=== PATIENT | male | born 1980 | race American Indian/Alaskan Native ===

== ENCOUNTER 2017-03-26 03:03 | Emergency (ER) | payer MEDICAID, OTHER ==
[2017-03-26 03:04] VITALS: BMI 23.1
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
[2017-03-26 03:31] VITALS: RESP 16; TEMP 98.6
--- NOTE | 2017-03-26 04:47 | CT ---
EXAM: CT Head Without Intravenous Contrast CLINICAL HISTORY: 36 years old, male; Pain; Headache TECHNIQUE: Axial computed tomography images of the head/brain without intravenous contrast. This CT exam was performed using one or more of the following dose reduction techniques: automated exposure control, adjustment of the mA and/or kV according to patient size, and/or use of iterative reconstruction technique. COMPARISON: CT - HEAD W/O CONTRAST 12/22/2015 4:51:54 PM FINDINGS: Limitations: Motion artifact - mild. Brain: Mild atrophy. No definite intracranial hemorrhage. No mass. Few scattered foci of decreased attenuation within periventricular/subcortical white matter. No definite edema. Ventricles: No hydrocephalus. Bones/joints: No acute fracture. Soft tissues: Unremarkable. Sinuses: No acute sinusitis. Mastoid air cells: No mastoid effusion. Orbits: Unremarkable as visualized. IMPRESSION: 1. Nonspecific white matter changes. Consider MRI. 2. Incidental/non-acute findings are described above.
[2017-03-26 05:46] VITALS: BP 117/68; PULSE 70; O2SAT 99
== END 2017-03-26 05:46 | disposition home or self-care (01) ==
LOC: ED 03:03
DX: R51 Headache (principal)

== ENCOUNTER 2017-08-18 04:02 | Emergency (ER) | payer MEDICAID, OTHER ==
[2017-08-18 04:02] VITALS: BMI 23.1
[2017-08-18 04:13] VITALS: BP 102/69; PULSE 102; RESP 18; TEMP 99.4; O2SAT 98
--- NOTE | 2017-08-18 04:27 | ED PDOC ---
Arrival/HPI - General Chief Complaint: Lower Extremity Problem/Injury Time Seen by Provider: 08/18/17 04:04 Historian: Patient - History of Present Illness Narrative History of Present Illness (Text): 08/18/17 04:24 A 37 year old male, whose past medical history includes hypertension, seizure disorder, MVP, HIV, and sickle cell disease, presents to the emergency department with right sided ankle pain. The patient denies fevers, chills, headache, dizziness, chest pain, shortness of breath, dyspnea on exertion, cough , abdominal pain, nausea, vomiting, diarrhea, back pain, neck pain, urinary/ bowel changes, trauma/injury, si/hi/ah/vh or any other complaint. Time/Duration: Other (Few Days) Symptom Onset: Sudden Symptom Course: Unchanged Activities at Onset: Rest Context: Home Past Medical History - Provider Review Nursing Documentation Reviewed: Yes - Infectious Disease Hx of Infectious Diseases: None - Tetanus Immunization Tetanus Immunization: Unknown - Cardiac Hx Cardiac Disorders: Yes Hx Hypertension: Yes Hx Mitral Valve Prolapse: (mv regurgitation) - Pulmonary Hx Respiratory Disorders: No - Neurological Hx Neurological Disorder: Yes Hx Seizures: Yes - HEENT Hx HEENT Disorder: No - Renal Hx Renal Disorder: No - Endocrine/Metabolic Hx Endocrine Disorders: No - Hematological/Oncological Hx Blood Disorders: Yes Hx Anemia: Yes Hx Sickle Cell Disease: Yes - Integumentary Hx Dermatological Disorder: No - Musculoskeletal/Rheumatological Hx Musculoskeletal Disorders: No Hx Falls: No - Gastrointestinal Hx Gastrointestinal Disorders: No - Genitourinary/Gynecological Hx Genitourinary Disorders: Yes Hx Sexually Transmitted Diseases: Yes - Psychiatric Hx Psychophysiologic Disorder: Yes Hx Depression: Yes Hx Substance Use: Yes (crystal meth) - Surgical History Hx Orthopedic Surgery: Yes (Bunionectomy) Hx Valve Replacement: Yes (AORTIC VALVE REPLACEMENT in 2012) Other/Comment: aortic valve replacement 2013/mitral valve repair - Anesthesia Hx Anesthesia: Yes Hx Anesthesia Reactions: No Hx Malignant Hyperthermia: No - Suicidal Assessment Feels Threatened In Home Enviroment: No Family/Social History - Physician Review Nursing Documentation Reviewed: Yes Family/Social History: No Known Family HX Smoking Status: Never Smoked Hx Alcohol Use: No Hx Substance Use: Yes (crystal meth) Substance used: crystal meth Allergies/Home Meds Allergies/Adverse Reactions: Allergies aripiprazole [From Abilify] Allergy (Verified 08/08/17 03:32) URTICARIA mirtazapine [From Remeron] Allergy (Verified 08/08/17 03:32) CONGESTION Review of Systems - Physician Review All systems were reviewed & negative as marked: Yes - Review of Systems Constitutional: absent: Fevers, Night Sweats Respiratory: absent: SOB, Cough Cardiovascular: absent: Chest Pain, VILLAGOMEZ Gastrointestinal: absent: Abdominal Pain, Stool Changes, Diarrhea, Nausea, Vomiting Genitourinary Male: absent: Urinary Output Changes Musculoskeletal: Other (Right ankle pain). absent: Back Pain, Neck Pain Neurological: absent: Headache, Dizziness Physical Exam Vital Signs Reviewed: Yes Vital Signs Temp Pulse Resp BP Pulse Ox 08/18/17 04:10 99.4 F 102 H 18 102/69 98 Temperature: Afebrile Blood Pressure: Normal Pulse: Tachycardic Respiratory Rate: Normal Appearance: Positive for: Well-Appearing, Non-Toxic, Comfortable Pain Distress: None Mental Status: Positive for: Alert and Oriented X 3 - Systems Exam Head: Present: Atraumatic, Normocephalic Pupils: Present: PERRL Extroacular Muscles: Present: EOMI Conjunctiva: Present: Normal Mouth: Present: Moist Mucous Membranes Neck: Present: Normal Range of Motion Respiratory/Chest: Present: Clear to Auscultation, Good Air Exchange. No: Respiratory Distress, Accessory Muscle Use Cardiovascular: Present: Regular Rate and Rhythm, Normal S1, S2. No: Murmurs Abdomen: Present: Normal Bowel Sounds. No: Tenderness, Distention, Peritoneal Signs Back: Present: Normal Inspection Upper Extremity: Present: Normal Inspection. No: Cyanosis, Edema Lower Extremity: Present: Normal Inspection. No: Edema Neurological: Present: GCS=15, CN II-XII Intact, Speech Normal Skin: Present: Warm, Dry, Normal Color. No: Rashes Psychiatric: Present: Alert, Oriented x 3, Normal Insight, Normal Concentration Medical Decision Making ED Course and Treatment: 08/18/17 04:27 Impression: A 37 year old male presents to the emergency department complaining of right ankle pain. Plan: -- Right Ankle X-Ray -- Reassess and disposition Prior Visits: Notes and results from previous visits were reviewed. Patient was last seen in the emergency department on 03/26/2017. The patient was seen in the emergency department for a complaint of a headache. The patient was discharged home. Progress Notes: 08/18/17 04:29: Patient denies any psychiatric symptoms (Suicidal/homicidal ideation or auditory/visual hallucination/ depression). Patient in no distress listening to iPod. 08/18/17 04:40: Reassessed patient; In no acute distress. Ambulatory, steady gait, responds to all my questions. - RAD Interpretation Radiology Orders: 08/18/17 04:24 ANKLE RIGHT 3 VIEWS ROUTINE [RAD] Stat - Medication Orders Current Medication Orders: Discontinued Medications Naproxen (Anaprox Ds) 550 mg PO STAT STA Stop: 08/18/17 04:46 Last Admin: 08/18/17 04:47 Dose: Not Given Non-Admin Reason: Patient Refused - Scribe Statement The provider has reviewed the documentation as recorded by the Scribe Chloe Copeland Provider Scribe Attestation: All medical record entries made by the Scribe were at my direction and personally dictated by me. I have reviewed the chart and agree that the record accurately reflects my personal performance of the history, physical exam, medical decision making, and the department course for this patient. I have also personally directed, reviewed, and agree with the discharge instructions and disposition. Disposition/Present on Arrival - Present on Arrival Any Indicators Present on Arrival: No History of DVT/PE: No History of Uncontrolled Diabetes: No Urinary Catheter: No History of Decub. Ulcer: No History Surgical Site Infection Following: None - Disposition Have Diagnosis and Disposition been Completed?: Yes Diagnosis: Ankle pain Disposition: HOME/ ROUTINE Disposition Time: 04:00 Condition: STABLE Discharge Instructions (ExitCare): Ankle Sprain (ED) Additional Instructions: follow up with specialist. return to er with worsening symptoms or concerns. Prescriptions: Naproxen 500 mg PO BID PRN #14 tab PRN Reason: Pain, Mild (1-3) Referrals: [facility] [Outside] - Follow up with primary [facility] [Outside] - Follow up with primary Forms: [employer] ([place])
[2017-08-18] MEDS ORDERED: Naproxen 550 mg Tab PO STA (04:45)
--- NOTE | 2017-08-18 09:49 | RAD ---
PROCEDURE: Right Ankle Radiographs. HISTORY: pain COMPARISON: None FINDINGS: BONES: Normal. No fracture. JOINTS: Normal. No osteoarthritis. Ankle mortise maintained. Talar dome intact SOFT TISSUES: Normal. OTHER FINDINGS: Solitary orthopedic screw, fenestrated 1st metacarpal. No evidence of orthopedic hardware failure. IMPRESSION: No acute findings related to/accounting for the clinical presentation. Concordant results with the preliminary interpretation rendered by the emergency department physician procedure.
== END 2017-08-18 04:47 | disposition home or self-care (01) ==
LOC: ED 04:02
DX: M25.571 Pain in right ankle and joints of right foot (principal); I10 Essential (primary) hypertension

== ENCOUNTER 2017-08-18 06:08 | Emergency (ER) | payer MEDICAID ==
[2017-08-18 06:09] VITALS: BMI 23.1
--- NOTE | 2017-08-18 06:42 | ED PDOC ---
Arrival/HPI - General Chief Complaint: Back Pain Time Seen by Provider: 08/18/17 06:39 - History of Present Illness Narrative History of Present Illness (Text): 08/18/17 06:41 37 yo male, hx of hiv, non-compliant with meds (reports cd4 80), sickle cell, substance abuse, presents with body aches and generalized weakness. seen earlier in er, only reporting ankle pain at that time. now requests full eval for body aches and weakness. pt was recently admitted to pychiatric service. at this time denies any si/hi. no reports fever, cough, urinary changes. 08/18/17 06:59 Past Medical History - Infectious Disease Hx of Infectious Diseases: None - Tetanus Immunization Tetanus Immunization: Unknown - Cardiac Hx Cardiac Disorders: Yes Hx Hypertension: Yes Hx Mitral Valve Prolapse: (mv regurgitation) - Pulmonary Hx Respiratory Disorders: No - Neurological Hx Neurological Disorder: Yes Hx Seizures: Yes - HEENT Hx HEENT Disorder: No - Renal Hx Renal Disorder: No - Endocrine/Metabolic Hx Endocrine Disorders: No - Hematological/Oncological Hx Blood Disorders: Yes Hx Anemia: Yes Hx Sickle Cell Disease: Yes - Integumentary Hx Dermatological Disorder: No - Musculoskeletal/Rheumatological Hx Musculoskeletal Disorders: No Hx Falls: No - Gastrointestinal Hx Gastrointestinal Disorders: No - Genitourinary/Gynecological Hx Genitourinary Disorders: Yes Hx Sexually Transmitted Diseases: Yes - Psychiatric Hx Psychophysiologic Disorder: Yes Hx Depression: Yes Hx Substance Use: Yes (crystal meth) - Surgical History Hx Orthopedic Surgery: Yes (Bunionectomy) Hx Valve Replacement: Yes (AORTIC VALVE REPLACEMENT in 2012) Other/Comment: aortic valve replacement 2013/mitral valve repair - Anesthesia Hx Anesthesia: Yes Hx Anesthesia Reactions: No Hx Malignant Hyperthermia: No - Suicidal Assessment Feels Threatened In Home Enviroment: No Family/Social History - Physician Review Nursing Documentation Reviewed: Yes Family/Social History: Unknown Family HX Smoking Status: Never Smoked Hx Alcohol Use: No Hx Substance Use: Yes (crystal meth) Substance used: crystal meth Allergies/Home Meds Allergies/Adverse Reactions: Allergies aripiprazole [From Abilify] Allergy (Verified 08/08/17 03:32) URTICARIA mirtazapine [From Remeron] Allergy (Verified 08/08/17 03:32) CONGESTION Review of Systems - Review of Systems Constitutional: Normal Eyes: Normal ENT: Normal Respiratory: Normal Cardiovascular: Normal Gastrointestinal: Normal Genitourinary Male: Normal Musculoskeletal: Arthralgias Skin: Normal Neurological: Normal Endocrine: Normal Hemo/Lymphatic: Normal Psychiatric: Normal Physical Exam Vital Signs Temp Pulse Resp BP Pulse Ox 08/18/17 08:35 98.4 F 87 16 123/71 98 08/18/17 06:14 98.7 F 109 H 18 113/80 100 Temperature: Afebrile Blood Pressure: Normal Pulse: Tachycardic (mild) Respiratory Rate: Normal Appearance: Positive for: Well-Appearing, Non-Toxic, Comfortable Pain Distress: None Mental Status: Positive for: Alert and Oriented X 3 - Systems Exam Head: Present: Atraumatic, Normocephalic Pupils: Present: PERRL Extroacular Muscles: Present: EOMI Conjunctiva: Present: Normal Mouth: Present: Moist Mucous Membranes Neck: Present: Normal Range of Motion Respiratory/Chest: Present: Clear to Auscultation, Good Air Exchange. No: Respiratory Distress, Accessory Muscle Use Cardiovascular: Present: Regular Rate and Rhythm, Normal S1, S2. No: Murmurs Abdomen: Present: Normal Bowel Sounds. No: Tenderness, Distention, Peritoneal Signs, Rebound, Guarding Back: Present: Normal Inspection Upper Extremity: Present: Normal Inspection. No: Cyanosis, Edema Lower Extremity: Present: Normal Inspection. No: Edema, Tenderness, Swelling Neurological: Present: GCS=15, CN II-XII Intact, Speech Normal Skin: Present: Warm, Dry, Normal Color. No: Rashes Psychiatric: Present: Alert, Oriented x 3, Normal Insight, Normal Concentration Medical Decision Making ED Course and Treatment: 08/18/17 06:43 ro infectious, metabolic, hematologic etiology - labs imaging pending. 08/18/17 19:25 signed out to day shift all labs imaging pending - Lab Interpretations Lab Results: 08/18/17 06:57 08/18/17 06:57 Lab Results 08/18/17 08:30: Urine Color Yellow, Urine Appearance Clear, Urine pH 6.0, Ur Specific [place] >= 1.030, Urine Protein 30 H, Urine Glucose (UA) Negative, Urine Ketones Trace H, Urine Blood Negative, Urine Nitrate Negative, Urine Bilirubin Negative, Urine Urobilinogen 1.0 H, Ur Leukocyte Esterase Negative, Urine RBC Negative, Urine WBC 0 - 2, Urine Bacteria Mod 08/18/17 06:57: Influenza Typ A,B (EIA) Negative for flu a/b 08/18/17 06:57: Sodium 141, Potassium 4.2, Chloride 104, Carbon Dioxide 30, Anion Gap 12, BUN 24 H, Creatinine 1.1, Est GFR ( Amer) > 60, Est GFR ( Non-Af Amer) > 60, Random Glucose 77, Calcium 8.9, Total Bilirubin 0.5, AST 66 H D, ALT 28, Alkaline Phosphatase 121, Total Creatine Kinase 186, Total Protein 8.7 H, Albumin 3.9, Globulin 4.8, Albumin/Globulin Ratio 0.8 L 08/18/17 06:57: PT 13.7 H, INR 1.24 H, APTT 30.3 08/18/17 06:57: WBC 9.0 D, RBC 3.46 L, Hgb 9.0 L, Hct 29.4 L, MCV 85.0, MCH 26.0, MCHC 30.6 L, RDW 15.1 H, Plt Count 216, MPV 11.6 H, Gran % 73.8 H, Lymph % (Auto) 17.4 L, [place] % (Auto) 8.5 H, Eos % (Auto) 0.1 L, Baso % (Auto) 0.2, Gran # 6.63 H, Lymph # 1.6, [place] # 0.8 H, Eos # 0.0, Baso # 0.02, Retic Count 1.57 H - RAD Interpretation Radiology Orders: 08/18/17 06:44 CHEST PORTABLE [RAD] Stat - Medication Orders Current Medication Orders: Discontinued Medications Sodium Chloride (Sodium Chloride 0.9%) 1,000 mls @ 999 mls/hr IV .Q1H1M STA Stop: 08/18/17 07:44 Last Admin: 08/18/17 07:02 Dose: 999 mls/hr eMAR Start Stop Document 08/18/17 07:02 YP (Rec: 08/18/17 07:02 [place] [facility] [id number] Intravenous Solution Start Date 08/18/17 Start Time 07:02 End Date 08/18/17 Ketorolac Tromethamine (Toradol) 30 mg IVP STAT STA Stop: 08/18/17 06:46 Last Admin: 08/18/17 07:06 Dose: 30 mg MAR Pain Assessment Document 08/18/17 07:06 YP (Rec: 08/18/17 07:06 [place] [facility] [id number] Pain Reassessment Is this a pain reassessment? Yes Sleep Is patient sleeping during reassessment? No Presence of Pain Presence of Pain No IVP Administration Document 08/18/17 07:06 YP (Rec: 08/18/17 07:06 [place] [facility] [id number] Charges for Administration # of IVP Administrations 1 Disposition/Present on Arrival - Present on Arrival Any Indicators Present on Arrival: No History of DVT/PE: No History of Uncontrolled Diabetes: No Urinary Catheter: No History of Decub. Ulcer: No History Surgical Site Infection Following: None - Disposition Have Diagnosis and Disposition been Completed?: Yes Diagnosis: Dehydration, Back pain, General medical exam, Substance abuse Disposition: HOME/ ROUTINE Disposition Time: 07:00 Condition: STABLE Discharge Instructions (ExitCare): Dehydration (ED), Polysubstance Abuse (ED), Normal Exam (ED), Back Pain (ED) Print Language: ITALIAN Additional Instructions: Make sure to see your doctor in 1-2 days DRINK PLENTY OF FLUIDS DONT SMOKE, DONT drink alcohol DONT DO DRUGS take your medications as prescribed RETURN TO ED IF worse pain, cant breath, persistent vomiting, high fever >101- 102 for hours, altered behavior, unable to urinate, numbness/tingling, incontinence, heavy/persistent bleeding, passing out, chest pain, or other medical emergencies Prescriptions: traMADol [Ultram] 50 mg PO TID #15 tab Referrals: PCP,NO [Non-Staff] - Follow up with primary Forms: [employer] ([place])
[2017-08-18] MEDS ORDERED: Sodium Chloride 0.9% 1,000 ML IV STA (06:44)
[2017-08-18 07:20] LABS: BASO # 0.02 K/mm3 (0.0-2.0); BASO % 0.2 % (0.0-3.0); EOS % 0.1 % (1.5-5.0); GRAN # 6.63 (1.4-6.5); GRAN % 73.8 % (50.0-68.0); HEMATOCRIT 29.4 % (42.0-52.0); LYMPH # 1.6 (1.2-3.4); LYMPH % 17.4 % (22.0-35.0); MEAN CORPUSCULAR HGB CONC 30.6 g/dl (31.0-37.0); MEAN PLATELET VOLUME 11.6 fl (7.0-11.0); MONO # 0.8 (0.1-0.6); MONO % 8.5 % (1.0-6.0); PLATELET COUNT 216 10^3/uL (120.0-450.0); RED CELL DISTRIBUTION WIDTH 15.1 % (11.5-14.5); RETIC% 1.57 % (0.5-1.5)
[2017-08-18 07:23] LABS: ALKALINE PHOSPHATASE 121 U/L (38-126); ALT/SGPT 28 U/L (7-56); AST/SGOT 66 U/L (17-59); BILIRUBIN,TOTAL 0.5 mg/dL (0.2-1.3); BLOOD UREA NITROGEN 24 mg/dL (7-21); CALCIUM 8.9 mg/dL (8.4-10.5); CARBON DIOXIDE 30 mmol/L (21-33); CHLORIDE 104 mmol/L (98-107); GFR AFRICAN-AMERICAN > 60; GLUCOSE,RANDOM 77 mg/dL (70-110); POTASSIUM 4.2 mmol/L (3.6-5.0); SODIUM 141 mmol/L (132-148); TOTAL PROTEIN 8.7 g/dL (5.8-8.3)
[2017-08-18 07:24] LABS: INR 1.24 (0.93-1.08); PARTIAL THROMBOPLASTIN TIME 30.3 Seconds (25.1-36.5)
--- NOTE | 2017-08-18 07:27 | ED PDOC ---
Physical Exam Vital Signs Reviewed: Yes Vital Signs Temp Pulse Resp BP Pulse Ox 08/18/17 08:35 98.4 F 87 16 123/71 98 08/18/17 06:14 98.7 F 109 H 18 113/80 100 Temperature: Afebrile Blood Pressure: Normal Pulse: Tachycardic Respiratory Rate: Normal Appearance: Positive for: Well-Appearing, Non-Toxic, Comfortable Pain Distress: None Mental Status: Positive for: Alert and Oriented X 3 - Systems Exam Head: Present: Atraumatic, Normocephalic Pupils: Present: PERRL, Other (sclera anicteric, no nystagmus, no photophobia, visual field intact b/l) Extroacular Muscles: Present: EOMI Conjunctiva: Present: Normal Ears: Present: Normal Mouth: Present: Moist Mucous Membranes, Normal Teeth, Other (no drooling/stridor , no exudate/lesions) Pharnyx: Present: Normal Neck: Present: Normal Range of Motion, Trachea Midline. No: MIDLINE TENDERNESS Respiratory/Chest: Present: Clear to Auscultation, Good Air Exchange. No: Respiratory Distress, Accessory Muscle Use Cardiovascular: Present: Regular Rate and Rhythm, Normal S1, S2. No: Murmurs Abdomen: Present: Normal Bowel Sounds, Other (well nourished male, no focal tenderness, no peoples's sign, no mcburney's point tenderness, no masses/rebound/ guarding/rigidity). No: Tenderness, Distention, Peritoneal Signs Back: Present: Normal Inspection. No: CVA Tenderness Upper Extremity: Present: Normal Inspection, Normal ROM, NORMAL PULSES, Neurovascularly Intact, Capillary Refill < 2s. No: Cyanosis, Edema Lower Extremity: Present: Normal Inspection, NORMAL PULSES, Normal ROM, Neurovascularly Intact, Capillary Refill < 2 s, Other (no pitting edema noted, no lesions/rashes/ulcerations noted). No: Edema, Gurdeep's Sign Neurological: Present: GCS=15, CN II-XII Intact, Speech Normal Skin: Present: Warm, Dry, Normal Color, Other (cap refill < 1sec, no ulcerations , no petechiae, no rashes/lesions). No: Rashes Psychiatric: Present: Alert, Oriented x 3, Normal Insight, Normal Concentration Medical Decision Making ED Course and Treatment: 08/18/17 07:00 Case signed out to me by Dr. Romero. 37 year old male came in today with multiple complaints with prolonged list of medical history (sickle cell, HIV - last CD4 count was in the 80s, medication non-compliant, substance abuse). This is the second visit to the emergency department in the last few hours. Per Dr. Romero patient is awaiting lab results and reevaluation. Patient can be disposition accordingly. 08/18/17 08:31 during re-eval, pt states he was recently treated at [facility] for ? psych complaint; pt was also recently seen at [facility] in [facility], and here at [facility]; pt states he receives most of his healthcare in [facility] as he is visiting relatives here in [place]; pt states he stopped taking his antiviral medications due to some insurance issues, and last dose was a few weeks ago; pt states his usual sickle cell crisis pain involves his back and he uses drugs ( crystalmeth) to control his pain; pt states otherwise in regards to today's complaint, he wants to have his right ankle checked as he felt like it feels swollen to him and lower back pain that felt like his sickle cell crisis pain; pt also described intermittent chills, no fever/sweats, no cp/sob/palpitations, no abd pain, no n/v, no numbness/tingling, no urinary/bowel changes; pt denied trauma/fall/travel/sick contact pt is here for further eval. pt is doing well otherwise pt is awaiting for UA results 08/18/17 09:31 pt tolerated po well pt's vital signs remained WNL pt is made aware of his medical results pt is encouraged continued fluid hydration pt is encouraged avoidance of street drugs pt is encouraged to see his doctors in [facility] and to resume his anti-viral medications pt will f/u as directed pt will be discharged home Re-evaluation Time: 08:30 Reassessment Condition: Improved, Improving,but remains with symptoms - Lab Interpretations Lab Results: 08/18/17 06:57 08/18/17 06:57 Lab Results 08/18/17 08:30: Urine Color Yellow, Urine Appearance Clear, Urine pH 6.0, Ur Specific [place] >= 1.030, Urine Protein 30 H, Urine Glucose (UA) Negative, Urine Ketones Trace H, Urine Blood Negative, Urine Nitrate Negative, Urine Bilirubin Negative, Urine Urobilinogen 1.0 H, Ur Leukocyte Esterase Negative, Urine RBC Negative, Urine WBC 0 - 2, Urine Bacteria Mod 08/18/17 06:57: Influenza Typ A,B (EIA) Negative for flu a/b 08/18/17 06:57: Sodium 141, Potassium 4.2, Chloride 104, Carbon Dioxide 30, Anion Gap 12, BUN 24 H, Creatinine 1.1, Est GFR ( Amer) > 60, Est GFR ( Non-Af Amer) > 60, Random Glucose 77, Calcium 8.9, Total Bilirubin 0.5, AST 66 H D, ALT 28, Alkaline Phosphatase 121, Total Creatine Kinase 186, Total Protein 8.7 H, Albumin 3.9, Globulin 4.8, Albumin/Globulin Ratio 0.8 L 08/18/17 06:57: PT 13.7 H, INR 1.24 H, APTT 30.3 08/18/17 06:57: WBC 9.0 D, RBC 3.46 L, Hgb 9.0 L, Hct 29.4 L, MCV 85.0, MCH 26.0, MCHC 30.6 L, RDW 15.1 H, Plt Count 216, MPV 11.6 H, Gran % 73.8 H, Lymph % (Auto) 17.4 L, [place] % (Auto) 8.5 H, Eos % (Auto) 0.1 L, Baso % (Auto) 0.2, Gran # 6.63 H, Lymph # 1.6, [place] # 0.8 H, Eos # 0.0, Baso # 0.02, Retic Count 1.57 H I have reviewed the lab results: Yes (slight anemia, chronic) Interpretation: Abnormal lab values (slight anemia) - RAD Interpretation Radiology Orders: 08/18/17 06:44 CHEST PORTABLE [RAD] Stat sternotomy wires/mild cardiomeagly, otherwise NAD, as read by me Bottom Cager: ED Physician - Medication Orders Current Medication Orders: Discontinued Medications Sodium Chloride (Sodium Chloride 0.9%) 1,000 mls @ 999 mls/hr IV .Q1H1M STA Stop: 08/18/17 07:44 Last Admin: 08/18/17 07:02 Dose: 999 mls/hr eMAR Start Stop Document 08/18/17 07:02 YP (Rec: 08/18/17 07:02 YP [facility] [id number] Intravenous Solution Start Date 08/18/17 Start Time 07:02 End Date 08/18/17 Ketorolac Tromethamine (Toradol) 30 mg IVP STAT STA Stop: 08/18/17 06:46 Last Admin: 08/18/17 07:06 Dose: 30 mg MAR Pain Assessment Document 08/18/17 07:06 YP (Rec: 08/18/17 07:06 YP [facility] [id number] Pain Reassessment Is this a pain reassessment? Yes Sleep Is patient sleeping during reassessment? No Presence of Pain Presence of Pain No IVP Administration Document 08/18/17 07:06 YP (Rec: 08/18/17 07:06 YP [facility] [id number]) Charges for Administration # of IVP Administrations 1 - Scribe Statement The provider has reviewed the documentation as recorded by the Scribe Leslee Cheek Provider Scribe Attestation: All medical record entries made by the Scribe were at my direction and personally dictated by me. I have reviewed the chart and agree that the record accurately reflects my personal performance of the history, physical exam, medical decision making, and the department course for this patient. I have also personally directed, reviewed, and agree with the discharge instructions and disposition. Disposition/Present on Arrival - Present on Arrival Any Indicators Present on Arrival: No History of DVT/PE: No History of Uncontrolled Diabetes: No Urinary Catheter: No History of Decub. Ulcer: No History Surgical Site Infection Following: CABG - Mediastinitis (sternotomy for aortic repair) - Disposition Have Diagnosis and Disposition been Completed?: Yes Diagnosis: Dehydration, Back pain, General medical exam, Substance abuse Disposition: HOME/ ROUTINE Disposition Time: 09:28 Patient Plan: Discharge Patient Problems: Current Active Problems Problem Status Onset Back pain Acute Dehydration Acute General medical exam Acute Substance abuse Acute Condition: STABLE Discharge Instructions (ExitCare): Dehydration (ED), Back Pain (ED), Normal Exam (ED), Polysubstance Abuse (ED) Print Language: MOHAWK Additional Instructions: Make sure to see your doctor in 1-2 days DRINK PLENTY OF FLUIDS DONT SMOKE, DONT drink alcohol DONT DO DRUGS take your medications as prescribed RETURN TO ED IF worse pain, cant breath, persistent vomiting, high fever >101- 102 for hours, altered behavior, unable to urinate, numbness/tingling, incontinence, heavy/persistent bleeding, passing out, chest pain, or other medical emergencies Prescriptions: traMADol [Ultram] 50 mg PO TID #15 tab Referrals: PCP,NO [Non-Staff] - Follow up with primary Forms: [employer] (Chilean)
[2017-08-18 07:52] LABS: ALB/GLOB RATIO 0.8 (1.1-1.8)
[2017-08-18 08:36] VITALS: BP 123/71; PULSE 87; RESP 16; TEMP 98.4; O2SAT 98
[2017-08-18 08:58] LABS: URINE BILIRUBIN NEGATIVE (NEGATIVE); URINE BLOOD NEGATIVE (NEGATIVE); URINE GLUCOSE (UA) NEGATIVE (NEGATIVE); URINE KETONE TRACE mg/dL (NEGATIVE); URINE LEUKOCYTE ESTERASE NEGATIVE Leu/uL (NEGATIVE); URINE PROTEIN 30 mg/dL (<30 mg/dL)
[2017-08-18 08:59] LABS: URINE APPEARANCE CLEAR (CLEAR); URINE COLOR YELLOW (YELLOW)
[2017-08-18 09:18] LABS: URINE BACTERIA MOD (NEG); URINE RBC NEGATIVE /hpf (0-2); URINE WBC 0 - 2 /hpf (0-6)
--- NOTE | 2017-08-18 09:51 | RAD ---
HISTORY: Weakness. Portable study 07:36 COMPARISON: 12/15/2016 FINDINGS: LUNGS: No active pulmonary disease. Haziness right lower lobe likely technical rather than infiltrate. PLEURA: No significant pleural effusion identified, no pneumothorax apparent. CARDIOVASCULAR: No radiographic findings to suggest acute or significant cardiovascular disease. Incidental Finding(s): Postoperative changes related to sternotomy. OSSEOUS STRUCTURES: No significant abnormalities. VISUALIZED UPPER ABDOMEN: Normal. OTHER FINDINGS: None. IMPRESSION: No active disease. No significant interval change compared to the prior examination(s).
== END 2017-08-18 09:53 | disposition home or self-care (01) ==
LOC: ED 06:08
DX: Z00.00 Encounter for general adult medical examination without abnormal findings (principal); E86.0 Dehydration; F19.10 Other psychoactive substance abuse, uncomplicated; M54.9 Dorsalgia, unspecified; I10 Essential (primary) hypertension
CPT/HCPCS: 71010; 80053; 81001; 82550; 85025; 85044; 85610; 85730; 87804; 96374; 99283; J1885; J7040

== ENCOUNTER 2018-07-17 10:45 | Inpatient (IN) | payer MEDICAID, OTHER ==
[2018-07-17 10:54] VITALS: BMI 21.9
[2018-07-17] MEDS ORDERED: Lidocaine 5% Patch TD ONE (11:05)
--- NOTE | 2018-07-17 11:09 | ED PDOC ---
Arrival/HPI - General Chief Complaint: Pain, Chronic Historian: Patient - History of Present Illness Narrative History of Present Illness (Text): 07/17/18 11:04 38 year old male, whose past medical history includes hypertension, seizure disorder(on Keppra & Lamictal), HIV/AIDS &sickle cell disease, presents to the emergency department with back pain. He reports having upper back pain worsened with movement & constantly feels his back is cracking. He states he is an active IV drug user admitting his last use was crystal meth 1 week ago. Patient also states he feels like everyone hates him, and chooses to be homeless. Patient denies any fevers, chills, headache, dizziness, chest pain, shortness of breath, cough, abdominal pain, nausea, vomiting, diarrhea, urinary/bowel changes, or any other complaint. Time/Duration: Prior to Arrival Symptom Course: Unchanged Quality: Unable to Describe Context: Street, Pedestrian Past Medical History - Provider Review Nursing Documentation Reviewed: Yes - Travel History Have you recently traveled outside [place] w/in the past 3 mons?: No - Infectious Disease Hx of Infectious Diseases: None - Tetanus Immunization Tetanus Immunization: Unknown - Cardiac Hx Hypertension: Yes Hx Mitral Valve Prolapse: (mv regurgitation) - Pulmonary Hx Respiratory Disorders: No - Neurological Hx Seizures: Yes - HEENT Hx HEENT Disorder: No - Renal Hx Renal Disorder: No - Endocrine/Metabolic Hx Endocrine Disorders: No - Hematological/Oncological Hx Anemia: Yes Hx Sickle Cell Disease: Yes - Integumentary Hx Dermatological Disorder: No - Musculoskeletal/Rheumatological Hx Musculoskeletal Disorders: No Hx Falls: No - Gastrointestinal Hx Gastrointestinal Disorders: No - Genitourinary/Gynecological Hx Sexually Transmitted Diseases: Yes - Psychiatric Hx Anxiety: Yes Hx Bipolar Disorder: Yes Hx Depression: Yes Hx Schizophrenia: Yes Hx Substance Use: Yes (crystal meth) - Surgical History Hx Orthopedic Surgery: Yes (Bunionectomy) Hx Valve Replacement: Yes (AORTIC VALVE REPLACEMENT) Other/Comment: aortic valve replacement 2013/mitral valve repair - Anesthesia Hx Anesthesia: Yes Hx Anesthesia Reactions: No Hx Malignant Hyperthermia: No - Suicidal Assessment Feels Threatened In Home Enviroment: No Family/Social History - Physician Review Nursing Documentation Reviewed: Yes Family/Social History: No Known Family HX Smoking Status: Never Smoked Hx Alcohol Use: No Hx Substance Use: Yes (crystal meth) Substance used: crystal meth Allergies/Home Meds Allergies/Adverse Reactions: Allergies aripiprazole [From Abilify] Allergy (Verified 01/21/18 19:20) URTICARIA mirtazapine [From Remeron] Allergy (Verified 01/21/18 19:20) CONGESTION Home Medications: Home Meds Medication Instructions Recorded Confirmed RX: No Known Home Med 01/21/18 01/21/18 Review of Systems - Physician Review All systems were reviewed & negative as marked: Yes - Review of Systems Constitutional: absent: Fevers, Night Sweats Respiratory: absent: SOB, Cough Cardiovascular: absent: Chest Pain Gastrointestinal: absent: Abdominal Pain, Diarrhea, Nausea, Vomiting Genitourinary Male: absent: Urinary Output Changes Neurological: absent: Headache, Dizziness Physical Exam Vital Signs Reviewed: Yes Temperature: Afebrile Blood Pressure: Hypertensive Pulse: Regular Respiratory Rate: Normal Appearance: Positive for: Well-Appearing, Non-Toxic, Comfortable Pain Distress: None Mental Status: Positive for: Alert and Oriented X 3 - Systems Exam Head: Present: Atraumatic, Normocephalic Pupils: Present: PERRL Extroacular Muscles: Present: EOMI Conjunctiva: Present: Normal Mouth: Present: Moist Mucous Membranes Neck: Present: Normal Range of Motion Respiratory/Chest: Present: Clear to Auscultation, Good Air Exchange. No: Respiratory Distress, Accessory Muscle Use Cardiovascular: Present: Regular Rate and Rhythm, Normal S1, S2. No: Murmurs Abdomen: No: Tenderness, Distention, Peritoneal Signs Back: Present: Paraspinal Tenderness (some paraspinal tenderness to left thoracic region) Upper Extremity: Present: Normal Inspection. No: Cyanosis, Edema Lower Extremity: Present: Normal Inspection. No: Edema Neurological: Present: GCS=15, CN II-XII Intact, Speech Normal Skin: Present: Warm, Dry, Normal Color. No: Rashes Psychiatric: Present: Alert, Oriented x 3, Normal Insight, Normal Concentration Medical Decision Making ED Course and Treatment: 07/17/18 11:14 Impression: 38 year old male presents with chronic back pain. Plan: -- Labs -- EKG -- Chest X-ray -- Toradol -- Lidoderm -- X- rays of spine -- Urinalysis -- Reassess and disposition Prior Visits: Notes and results from previous visits were reviewed. Progress Notes: 07/17/18 15:09 Labs reviewed with leukopenia noted and Hgb 9.7. Reticulocytes 1.0. CXR negative for infiltrates. Discussed case with Dr. Cho(hospitalist) who accepts patient onto his service. Patient updated on plan and is in agreement. - Scribe Statement The provider has reviewed the documentation as recorded by the Melbaibe Jospeh Salomon Provider Scribe Attestation: All medical record entries made by the Scribe were at my direction and personally dictated by me. I have reviewed the chart and agree that the record accurately reflects my personal performance of the history, physical exam, medical decision making, and the department course for this patient. I have also personally directed, reviewed, and agree with the discharge instructions and disposition. Disposition/Present on Arrival - Present on Arrival Any Indicators Present on Arrival: No History of DVT/PE: No History of Uncontrolled Diabetes: No Urinary Catheter: No History of Decub. Ulcer: No History Surgical Site Infection Following: None - Disposition Have Diagnosis and Disposition been Completed?: Yes Diagnosis: Back pain Disposition: HOSPITALIZED Disposition Time: 15:10 Patient Plan: Admission Patient Problems: Current Active Problems Problem Status Onset Back pain Acute Condition: GUARDED
[2018-07-17 11:46] LABS: BASO # 0.01 K/mm3 (0.0-2.0); BASO % 0.3 % (0.0-3.0); EOS # 0.1 (0.0-0.7); EOS % 1.9 % (1.5-5.0); GRAN # 1.94 (1.4-6.5); HEMOGLOBIN 9.7 g/dL (14.0-18.0); LYMPH # 0.8 (1.2-3.4); LYMPH % 24.8 % (22.0-35.0); MEAN CELL VOLUME 86.4 fl (80.0-105.0); MEAN CORPUSCULAR HEMOGLOBIN 26.9 pg (25.0-35.0); MEAN CORPUSCULAR HGB CONC 31.1 g/dl (31.0-37.0); MEAN PLATELET VOLUME 11.7 fl (7.0-11.0); MONO # 0.4 (0.1-0.6); RBC 3.61 10^6/uL (3.5-6.1); RED CELL DISTRIBUTION WIDTH 14.9 % (11.5-14.5); WHITE BLOOD COUNT 3.2 10^3/uL (4.5-11.0)
[2018-07-17] MEDS ORDERED: Oxycodone/Acetaminophen 5/325 mg Tab PO STA (12:15)
[2018-07-17] MEDS ORDERED: Sodium Chloride 0.9% 1,000 ML IV STA (12:26)
[2018-07-17 12:32] LABS: VENOUS BLOOD GAS PO2 48 mm/Hg (30-55); VENOUS BLOOD PH 7.26 (7.32-7.43)
[2018-07-17 14:28] LABS: ALB/GLOB RATIO 0.9 (1.1-1.8); ALBUMIN 4.1 g/dL (3.0-4.8); ALT/SGPT 57 U/L (7-56); AST/SGOT 104 U/L (17-59); BLOOD UREA NITROGEN 26 mg/dL (7-21); CALCIUM 8.7 mg/dL (8.4-10.5); GFR NON-AFRICAN AMERICAN > 60
--- NOTE | 2018-07-17 14:38 | RAD ---
Date of service: 07/17/2018 PROCEDURE: Radiographs of the Lumbar Spine. HISTORY: Back pain w/ h/o IV drug use COMPARISON: No prior. FINDINGS: BONES: Normal alignment. No listhesis. No fracture. DISC SPACES: Unremarkable. OTHER FINDINGS: None. IMPRESSION: Unremarkable radiographs of the lumbar spine.
--- NOTE | 2018-07-17 14:40 | RAD ---
Date of service: 07/17/2018 HISTORY: back pain w/ h/o IV drug use COMPARISON: No prior. FINDINGS: BONES: Alignment maintained. No fracture. DISC SPACES: Normal. SOFT TISSUES: Normal. OTHER FINDINGS: None. IMPRESSION: Normal radiographs of the thoracic spine.
--- NOTE | 2018-07-17 14:42 | RAD ---
Date of service: 07/17/2018 PROCEDURE: CHEST RADIOGRAPH, 1 VIEW HISTORY: sob COMPARISON: None available. FINDINGS: LUNGS: Clear. PLEURA: No pneumothorax or pleural fluid seen. CARDIOVASCULAR: No aortic atherosclerotic calcification present. There is moderate cardiomegaly OSSEOUS STRUCTURES: Sternal wires VISUALIZED UPPER ABDOMEN: Normal. OTHER FINDINGS: None. IMPRESSION: No active disease.
[2018-07-17 14:55] LABS: URINE APPEARANCE CLEAR (CLEAR); URINE BILIRUBIN NEGATIVE (NEGATIVE); URINE BLOOD TRACE-INTACT (NEGATIVE); URINE COLOR YELLOW (YELLOW); URINE GLUCOSE (UA) NEGATIVE (NEGATIVE); URINE LEUKOCYTE ESTERASE NEGATIVE Leu/uL (NEGATIVE); URINE PROTEIN 30 mg/dL (<30 mg/dL); URINE UROBILINOGEN 0.2 E.U./dL (<1 E.U./dL)
[2018-07-17 15:02] LABS: URINE AMORPHOUS SEDIMENT SMALL; URINE RBC 0 - 2 /hpf (0-2); URINE WBC 0 - 2 /hpf (0-6)
[2018-07-17 15:21] LABS: BARBITURATES, UR NEGATIVE (NEGATIVE); BENZODIAZEPINES, UR NEGATIVE (NEGATIVE); OPIATES, UR NEGATIVE (NEGATIVE); PHENCYCLIDINE, UR NEGATIVE (NEGATIVE)
--- NOTE | 2018-07-17 15:56 | CP.PCM.HP ---
<Logan Zhao - Last Filed: 07/17/18 16:50> History of Present Illness - History of Present Illness History of Present Illness: H&P note for Dr. Marquis Zhao PGY2 Chief complaint: Back pain Patient is a 38 with a history of HIV, sickle cell anemia, MVP, endocarditis, Aortic valve replacement in 2012, crystal meth IV drug abuse who presents with complaints of back pain which began this past Saturday. Describes pain as sharp, 10/10 non radiating, exacerbated with movements triggered by carrying his heavy clothes and objects through the city. Patient states he also has been having a sore throat for the past week for which he went to [place] two days ago for evaluation; as per patient he was prescribed azithromycin however has not noticed any improvements in his symptoms. Patient states his last CD4 count was 29 and his last time on HAART therapy consistently was between November-December this year but due to constantly moving from retirement to retirement he is unable to be compliant with his medications. Patient denies fevers, chills, cough, diarrhea, abdominal pain, nausea, vomiting, chest pain, dysuria. 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, denies tobacco use, admits to occasional alcohol use (4 lokos every 5 months or so), admits to IV drug abuse (crystal meth for which patient says he pays for with his own money from his previous job as a teacher) Family hx: non-pertinent Present on Admission - Present on Admission Any Indicators Present on Admission: No Review of Systems - Constitutional Constitutional: absent: Chills, Headache - EENT Eyes: absent: Change in Vision Ears: absent: Dizziness Nose/Mouth/Throat: Sore Throat - Cardiovascular Cardiovascular: absent: Chest Pain, Dyspnea - Respiratory Respiratory: absent: Dyspnea - Gastrointestinal Gastrointestinal: absent: Abdominal Pain, Diarrhea, Nausea, Vomiting - Genitourinary Genitourinary: absent: Dysuria - Musculoskeletal Musculoskeletal: Back Pain - Neurological Neurological: absent: Dizziness, Headaches - Psychiatric Psychiatric: absent: Depression - Endocrine Endocrine: absent: Fatigue Past Patient History - Infectious Disease Hx of Infectious Diseases: None - Tetanus Immunizations Tetanus Immunization: Unknown - Past Medical History & Family History Past Medical History?: Yes - Past Social History Smoking Status: Never Smoked - CARDIAC Hx Hypertension: Yes Hx Mitral Valve Prolapse: (mv regurgitation) - PULMONARY Hx Respiratory Disorders: No - NEUROLOGICAL Hx Seizures: Yes - HEENT Hx HEENT Problems: No - RENAL Hx Chronic Kidney Disease: No - ENDOCRINE/METABOLIC Hx Endocrine Disorders: No - HEMATOLOGICAL/ONCOLOGICAL Hx Anemia: Yes Hx Sickle Cell Disease: Yes - INTEGUMENTARY Hx Dermatological Problems: No - MUSCULOSKELETAL/RHEUMATOLOGICAL Hx Musculoskeletal Disorders: No Hx Falls: No - GASTROINTESTINAL Hx Gastrointestinal Disorders: No - GENITOURINARY/GYNECOLOGICAL Hx Sexually Transmitted Disorders: Yes - PSYCHIATRIC Hx Anxiety: Yes Hx Bipolar Disorder: Yes Hx Depression: Yes Hx Schizophrenia: Yes Hx Substance Use: Yes (crystal meth) - SURGICAL HISTORY Hx Orthopedic Surgery: Yes (Bunionectomy) Hx Valve Replacement: Yes (AORTIC VALVE REPLACEMENT) Other/Comment: aortic valve replacement 2012/mitral valve repair - ANESTHESIA Hx Anesthesia: Yes Hx Anesthesia Reactions: No Hx Malignant Hyperthermia: No Meds Allergies/Adverse Reactions: Allergies Allergy/AdvReac Type Severity Reaction Status Date / Time aripiprazole [From Abilify] Allergy URTICARIA Verified 01/21/18 19:20 mirtazapine [From Remeron] Allergy CONGESTION Verified 01/21/18 19:20 Physical Exam - Constitutional Appears: Well, Non-toxic, No Acute Distress - Head Exam Head Exam: ATRAUMATIC, NORMAL INSPECTION, NORMOCEPHALIC - Eye Exam Eye Exam: EOMI, Normal appearance - ENT Exam ENT Exam: Mucous Membranes Moist, Normal Exam - Neck Exam Neck exam: Positive for: Normal Inspection - Respiratory Exam Respiratory Exam: Clear to Auscultation Bilateral, NORMAL BREATHING PATTERN. absent: Rhonchi, Wheezes - Cardiovascular Exam Cardiovascular Exam: REGULAR RHYTHM, +S1, +S2. absent: Clicks, Irregular Rhythm, RRR, Systolic Murmur - GI/Abdominal Exam GI & Abdominal Exam: Normal Bowel Sounds, Soft - Rectal Exam Rectal Exam: NORMAL INSPECTION - Extremities Exam Extremities exam: Positive for: normal inspection - Back Exam Back exam: NORMAL INSPECTION, tenderness. absent: CVA tenderness (L) - Neurological Exam Neurological exam: Alert, Altered - Psychiatric Exam Psychiatric exam: Anxious - Skin Skin Exam: Normal Color, Warm Results - Vital Signs Recent Vital Signs: Last Vital Signs Temp 98 F 07/17/18 10:45 Pulse 88 07/17/18 10:45 Resp 18 07/17/18 10:45 BP 151/110 H 07/17/18 10:45 Pulse Ox 100 07/17/18 10:45 - Labs Result Diagrams: 07/17/18 11:30 07/17/18 11:30 Labs: Laboratory Results - last 24 hr 07/17/18 07/17/18 07/17/18 11:30 11:30 11:30 WBC 3.2 L RBC 3.61 Hgb 9.7 L Hct 31.2 L MCV 86.4 MCH 26.9 MCHC 31.1 RDW 14.9 H Plt Count 195 MPV 11.7 H Gran % 60.0 Lymph % (Auto) 24.8 [place] % (Auto) 13.0 H Eos % (Auto) 1.9 Baso % (Auto) 0.3 Gran # 1.94 Lymph # (Auto) 0.8 L [place] # (Auto) 0.4 Eos # (Auto) 0.1 Baso # (Auto) 0.01 ESR 65 H Retic Count 1.00 pO2 VBG pH VBG pCO2 VBG HCO3 VBG Total CO2 VBG O2 Sat (Calc) VBG Base Excess VBG Potassium Glucose Lactate FiO2 Sodium 142 Potassium 4.3 Chloride 110 H Carbon Dioxide 26 Anion Gap 10 BUN 26 H Creatinine 1.1 Est GFR ( Amer) > 60 Est GFR (Non-Af Amer) > 60 Random Glucose 50 L Calcium 8.7 Total Bilirubin 0.7 AST 104 H D ALT 57 H Alkaline Phosphatase 145 H D Total Protein 8.8 H Albumin 4.1 Globulin 4.7 Albumin/Globulin Ratio 0.9 L Venous Blood Potassium Urine Color Urine Appearance Urine pH Ur Specific [place] Urine Protein Urine Glucose (UA) Urine Ketones Urine Blood Urine Nitrate Urine Bilirubin Urine Urobilinogen Ur Leukocyte Esterase Urine RBC Urine WBC Ur Epithelial Cells Amorphous Sediment Urine Opiates Screen Urine Methadone Screen Ur Barbiturates Screen Ur Phencyclidine Scrn Ur Amphetamines Screen U Benzodiazepines Scrn U Oth Cocaine Metabols U Cannabinoids Screen 07/17/18 07/17/18 07/17/18 12:02 14:48 14:48 WBC RBC Hgb Hct MCV MCH MCHC RDW Plt Count MPV Gran % Lymph % (Auto) [place] % (Auto) Eos % (Auto) Baso % (Auto) Gran # Lymph # (Auto) [place] # (Auto) Eos # (Auto) Baso # (Auto) ESR Retic Count pO2 48 VBG pH 7.26 L VBG pCO2 61.0 H VBG HCO3 27.4 VBG Total CO2 29.3 H VBG O2 Sat (Calc) 81.3 H VBG Base Excess -1.0 L VBG Potassium 4.2 Glucose 70 L Lactate 0.8 FiO2 21.0 Sodium 140.0 Potassium Chloride 108.0 H Carbon Dioxide Anion Gap BUN Creatinine Est GFR ( Amer) Est GFR (Non-Af Amer) Random Glucose Calcium Total Bilirubin AST ALT Alkaline Phosphatase Total Protein Albumin Globulin Albumin/Globulin Ratio Venous Blood Potassium 4.2 Urine Color Yellow Urine Appearance Clear Urine pH 6.0 Ur Specific [place] >= 1.030 Urine Protein 30 H Urine Glucose (UA) Negative Urine Ketones Negative Urine Blood Trace-intact H Urine Nitrate Negative Urine Bilirubin Negative Urine Urobilinogen 0.2 Ur Leukocyte Esterase Negative Urine RBC 0 - 2 Urine WBC 0 - 2 Ur Epithelial Cells None Amorphous Sediment Small Urine Opiates Screen Negative Urine Methadone Screen Negative Ur Barbiturates Screen Negative Ur Phencyclidine Scrn Negative Ur Amphetamines Screen Positive H U Benzodiazepines Scrn Negative U Oth Cocaine Metabols Negative U Cannabinoids Screen Negative Assessment & Plan - Assessment and Plan (Free Text) Assessment: Patient is a 38 with a history of HIV, sickle cell anemia, MVP, endocarditis, Aortic valve replacement in 2012, crystal meth IV drug abuse who presents with complaints of back pain which began this past Saturday. Plan: Back pain d/t spinal abscess vs. sickle cell crisis vs. chronic back pain -ESR elevated, CRP ordered, Blood and urine cultures ordered -X-ray imaging of thoracic an dlumbar spine show no acute abnormalities. Will order CT thoracic spine, is suspicion is still there will order Mri -Motrin q6h PRN and daily lidocaine patch for pain relief -Retic count 1.0 and H/H stable less likely sickle cell crisis Sore throat -Continue with azithrmycin Transaminitis -Hep panel re-ordered; previous hep panel from 2017 negative Hx of sickle cell anemia -H/H 9.7/31.2 -Retic count 1.0 Hx of HIV -ID on consult -Will start azithrmyocin -Previous CD4 count <20 -Repeat CD4 count and viral load ordered Hx of drug abuse -Azithromycin for ppx and sore throat Hx of aortic valve replacement/endocarditis/IV drug abuse -Will f/u with blood cultures -As of now afebrile without leukocytosis DVT/GI ppx: Lovenox/Protonix Case discussed and reviewed with Dr. Cho <Gautam Cho - Last Filed: 07/17/18 17:31> Results - Vital Signs Recent Vital Signs: Last Vital Signs Temp 98 F 07/17/18 10:45 Pulse 110 H 07/17/18 16:19 Resp 14 07/17/18 16:19 BP 143/78 07/17/18 16:03 Pulse Ox 98 07/17/18 16:03 - Labs Result Diagrams: 07/17/18 11:30 07/17/18 11:30 Labs: Laboratory Results - last 24 hr 07/17/18 07/17/18 07/17/18 11:30 11:30 11:30 WBC 3.2 L RBC 3.61 Hgb 9.7 L Hct 31.2 L MCV 86.4 MCH 26.9 MCHC 31.1 RDW 14.9 H Plt Count 195 MPV 11.7 H Gran % 60.0 Lymph % (Auto) 24.8 [place] % (Auto) 13.0 H Eos % (Auto) 1.9 Baso % (Auto) 0.3 Gran # 1.94 Lymph # (Auto) 0.8 L [place] # (Auto) 0.4 Eos # (Auto) 0.1 Baso # (Auto) 0.01 ESR 65 H Retic Count 1.00 pO2 VBG pH VBG pCO2 VBG HCO3 VBG Total CO2 VBG O2 Sat (Calc) VBG Base Excess VBG Potassium Glucose Lactate FiO2 Sodium 142 Potassium 4.3 Chloride 110 H Carbon Dioxide 26 Anion Gap 10 BUN 26 H Creatinine 1.1 Est GFR ( Amer) > 60 Est GFR (Non-Af Amer) > 60 Random Glucose 50 L Calcium 8.7 Total Bilirubin 0.7 AST 104 H D ALT 57 H Alkaline Phosphatase 145 H D NT-Pro-B Natriuret Pep Total Protein 8.8 H Albumin 4.1 Globulin 4.7 Albumin/Globulin Ratio 0.9 L Venous Blood Potassium Urine Color Urine Appearance Urine pH Ur Specific [place] Urine Protein Urine Glucose (UA) Urine Ketones Urine Blood Urine Nitrate Urine Bilirubin Urine Urobilinogen Ur Leukocyte Esterase Urine RBC Urine WBC Ur Epithelial Cells Amorphous Sediment Urine Opiates Screen Urine Methadone Screen Ur Barbiturates Screen Ur Phencyclidine Scrn Ur Amphetamines Screen U Benzodiazepines Scrn U Oth Cocaine Metabols U Cannabinoids Screen 07/17/18 07/17/18 07/17/18 12:00 12:02 14:48 WBC RBC Hgb Hct MCV MCH MCHC RDW Plt Count MPV Gran % Lymph % (Auto) [place] % (Auto) Eos % (Auto) Baso % (Auto) Gran # Lymph # (Auto) [place] # (Auto) Eos # (Auto) Baso # (Auto) ESR Retic Count pO2 48 VBG pH 7.26 L VBG pCO2 61.0 H VBG HCO3 27.4 VBG Total CO2 29.3 H VBG O2 Sat (Calc) 81.3 H VBG Base Excess -1.0 L VBG Potassium 4.2 Glucose 70 L Lactate 0.8 FiO2 21.0 Sodium 140.0 Potassium Chloride 108.0 H Carbon Dioxide Anion Gap BUN Creatinine Est GFR ( Amer) Est GFR (Non-Af Amer) Random Glucose Calcium Total Bilirubin AST ALT Alkaline Phosphatase NT-Pro-B Natriuret Pep 648 H Total Protein Albumin Globulin Albumin/Globulin Ratio Venous Blood Potassium 4.2 Urine Color Yellow Urine Appearance Clear Urine pH 6.0 Ur Specific [place] >= 1.030 Urine Protein 30 H Urine Glucose (UA) Negative Urine Ketones Negative Urine Blood Trace-intact H Urine Nitrate Negative Urine Bilirubin Negative Urine Urobilinogen 0.2 Ur Leukocyte Esterase Negative Urine RBC 0 - 2 Urine WBC 0 - 2 Ur Epithelial Cells None Amorphous Sediment Small Urine Opiates Screen Urine Methadone Screen Ur Barbiturates Screen Ur Phencyclidine Scrn Ur Amphetamines Screen U Benzodiazepines Scrn U Oth Cocaine Metabols U Cannabinoids Screen 07/17/18 14:48 WBC RBC Hgb Hct MCV MCH MCHC RDW Plt Count MPV Gran % Lymph % (Auto) [place] % (Auto) Eos % (Auto) Baso % (Auto) Gran # Lymph # (Auto) [place] # (Auto) Eos # (Auto) Baso # (Auto) ESR Retic Count pO2 VBG pH VBG pCO2 VBG HCO3 VBG Total CO2 VBG O2 Sat (Calc) VBG Base Excess VBG Potassium Glucose Lactate FiO2 Sodium Potassium Chloride Carbon Dioxide Anion Gap BUN Creatinine Est GFR ( Amer) Est GFR (Non-Af Amer) Random Glucose Calcium Total Bilirubin AST ALT Alkaline Phosphatase NT-Pro-B Natriuret Pep Total Protein Albumin Globulin Albumin/Globulin Ratio Venous Blood Potassium Urine Color Urine Appearance Urine pH Ur Specific [place] Urine Protein Urine Glucose (UA) Urine Ketones Urine Blood Urine Nitrate Urine Bilirubin Urine Urobilinogen Ur Leukocyte Esterase Urine RBC Urine WBC Ur Epithelial Cells Amorphous Sediment Urine Opiates Screen Negative Urine Methadone Screen Negative Ur Barbiturates Screen Negative Ur Phencyclidine Scrn Negative Ur Amphetamines Screen Positive H U Benzodiazepines Scrn Negative U Oth Cocaine Metabols Negative U Cannabinoids Screen Negative Attending/Attestation - Attestation I have personally seen and examined this patient.: Yes I have fully participated in the care of the patient.: Yes I have reviewed all pertinent clinical information: Yes Notes (Text): 07/17/18 17:22 38 year old homeless male with past medical history of HIV, sickle cell anemia, MVP, AVR (2012), endocarditis, substance abuse including IVDA and psychiatric disorder who presents with complaint of back pain. Xray thoracic/lumbar spine were negative. ESR is elevated. CRP is ordered. Will follow up on blood cultures. Consider further imaging with CT or MRI given history of IVDA and immunocompromised state. ID evaluation is requested. Sickle cell crisis less likely given normal retic count and isolated back pain. LFTs are elevated. Patient denies any abdominal pain. Will obtain hepatitis panel. Sister at bedside is also concerned regarding patient noncompliance with outpatient psychiatric follow up given current living situation. Psychiatry and social research assistant evaluation is requested. Patient was counselled on medication and outpatient follow up compliance. Patient was counselled on risks of continued substance abuse. Sister is at bedside and questions were answered. Gautam Cho MD Hospitalist.
[2018-07-17] MEDS: Enoxaparin 40 mg Syringe SC SCH (18:10)
[2018-07-17] MEDS: Azithromycin 500MG/NS 250ml 500 MG/250 ML BAG IVPB SCH (18:10)
[2018-07-18] MEDS: Pantoprazole 40 mg EC Tab PO SCH (06:35)
[2018-07-18 07:01] LABS: BASO # 0.01 K/mm3 (0.0-2.0); BASO % 0.3 % (0.0-3.0); EOS # 0.1 (0.0-0.7); EOS % 2.3 % (1.5-5.0); GRAN # 2.05 (1.4-6.5); GRAN % 58.3 % (50.0-68.0); HEMOGLOBIN 9.5 g/dL (14.0-18.0); LYMPH # 0.8 (1.2-3.4); LYMPH % 21.4 % (22.0-35.0); MEAN CELL VOLUME 84.7 fl (80.0-105.0); MEAN CORPUSCULAR HEMOGLOBIN 26.4 pg (25.0-35.0); MEAN CORPUSCULAR HGB CONC 31.1 g/dl (31.0-37.0); MEAN PLATELET VOLUME 11.3 fl (7.0-11.0); MONO # 0.6 (0.1-0.6); MONO % 17.7 % (1.0-6.0); RBC 3.6 10^6/uL (3.5-6.1); WHITE BLOOD COUNT 3.5 10^3/uL (4.5-11.0)
[2018-07-18 07:18] LABS: ALB/GLOB RATIO 0.8 (1.1-1.8); ALBUMIN 3.6 g/dL (3.0-4.8); ALT/SGPT 48 U/L (7-56); AST/SGOT 88 U/L (17-59); BLOOD UREA NITROGEN 27 mg/dL (7-21); CALCIUM 8.5 mg/dL (8.4-10.5); GFR NON-AFRICAN AMERICAN > 60
[2018-07-18] MEDS ORDERED: Divalproex 500 mg DR(BID formulation) PO STA (07:50)
--- NOTE | 2018-07-18 08:39 | CARD ---
APPROVED REPORT Date of service: 07/17/2018 EKG Measurement Heart [id number] <Conclusion> Sinus rhythm with 1st degree AV block Possible Left atrial enlargement Inferior infarct, possibly acute Anterior infarct, possibly acute Lateral injury pattern ACUTE [place] Abnormal ECG
--- NOTE | 2018-07-18 08:57 | CT ---
Date of service: 07/17/2018 PROCEDURE: CT Thoracic Spine without contrast HISTORY: r/o spinal abscess COMPARISON: None available. TECHNIQUE: Axial computed tomography images were obtained of the thoracic spine without intravenous contrast. Coronal and sagittal reformatted images were created and reviewed. Radiation dose: Total exam DLP = 615.63 mGy-cm. This CT exam was performed using one or more of the following dose reduction techniques: Automated exposure control, adjustment of the mA and/or kV according to patient size, and/or use of iterative reconstruction technique. FINDINGS: VERTEBRAE: Unremarkable. No fracture. Shallow dextroscoliosis. DISCS/SPINAL CANAL/NEURAL FORAMINA: Within the limits of the CT technique, no disc herniation seen. No central canal or neural foraminal stenosis.. PARASPINAL SOFT TISSUES: Unremarkable. OTHER FINDINGS: Unremarkable. IMPRESSION: No abscess.
[2018-07-18] MEDS: Lidocaine 5% Patch TD SCH (10:20)
[2018-07-18] MEDS: Enoxaparin 40 mg Syringe SC SCH (10:20)
[2018-07-18] MEDS: Azithromycin 500MG/NS 250ml 500 MG/250 ML BAG IVPB SCH (10:22)
[2018-07-18 10:47] LABS: HEPATITIS B SURFACE AG Negative (NEGATIVE)
[2018-07-18 10:53] LABS: HEPATITIS A IGM NEGATIVE (NEGATIVE); HEPATITIS B CORE AB NEGATIVE (NEGATIVE)
[2018-07-18 11:05] LABS: HEPATITIS C ANTIBODY NEGATIVE (NEGATIVE)
--- NOTE | 2018-07-18 14:07 | CP.PCM.PN ---
<oLgan Zhao - Last Filed: 07/18/18 14:19> Subjective - Date & Time of Evaluation Date of Evaluation: 07/18/18 Time of Evaluation: 09:00 - Subjective Subjective: Patient seen and examined at bedside in same state as admission; with flight of ideas and racing thoughts. Seems as though patient gets caught up in his thoughts and most of the speaks at a speed causing him to be unintelligible. Patient was disruptive overnight and this morning with nursing staff. ROS not fully obtained due to patient's mental status. Patient admits to headache. Objective - Vital Signs/Intake and Output Vital Signs (last 24 hours): Temp Pulse Resp BP Pulse Ox 98.3 F 80 20 128/64 100 07/18/18 06:00 07/18/18 06:00 07/18/18 06:00 07/18/18 06:00 07/18/18 06:00 - Medications Medications: Current Medications Azithromycin (Zithromax) 500 mg PO DAILY [facility] Stop: 07/20/18 17:01 Diphenhydramine HCl (Benadryl) 25 mg PO HS PRN PRN Reason: Insomnia Last Admin: 07/17/18 23:01 Dose: 25 mg Divalproex Sodium (Depakote Dr(*Bid*)) 500 mg PO [facility]; Protocol Enoxaparin Sodium (Lovenox) 40 mg SC DAILY [facility]; Protocol Last Admin: 07/18/18 10:20 Dose: 40 mg Ibuprofen (Motrin Tab) 600 mg PO Q6H PRN PRN Reason: Pain, severe (8-10) Lidocaine (Lidoderm) 1 ea TD DAILY [facility] Last Admin: 07/18/18 10:20 Dose: 1 ea Pantoprazole Sodium (Protonix Ec Tab) 40 mg PO 0600 [facility] Last Admin: 07/18/18 06:35 Dose: 40 mg Quetiapine Fumarate (Seroquel) 50 mg PO [facility]; Protocol - Labs Labs: 07/18/18 06:20 07/18/18 06:20 - Constitutional Appears: Toxic, Agitated, Confused - Head Exam Head Exam: ATRAUMATIC, NORMAL INSPECTION, NORMOCEPHALIC - Eye Exam Eye Exam: Normal appearance - ENT Exam ENT Exam: Mucous Membranes Moist - Respiratory Exam Respiratory Exam: Clear to Ausculation Bilateral, NORMAL BREATHING PATTERN. absent: Rhonchi, Wheezes - Cardiovascular Exam Cardiovascular Exam: REGULAR RHYTHM, +S1, +S2 - GI/Abdominal Exam GI & Abdominal Exam: Soft, Normal Bowel Sounds - Extremities Exam Extremities Exam: Normal Inspection - Back Exam Back Exam: NORMAL INSPECTION - Neurological Exam Neurological Exam: Altered - Psychiatric Exam Psychiatric exam: Agitated, Anxious, Manic, Suicidal Ideation. absent: Normal Affect, Normal Mood Additional comments: paranoid - Skin Skin Exam: Normal Color, Warm Assessment and Plan - Assessment and Plan (Free Text) Assessment: Patient is a 38 with a history of HIV, sickle cell anemia, MVP, endocarditis, Aortic valve replacement in 2012, crystal meth IV drug abuse who presents with complaints of back pain which began this past Saturday with no signs of osteomyelitis or spinal abscess however in psyhosis. Plan: Back pain d/t spinal abscess vs. sickle cell crisis vs. chronic back pain -ESR elevated, CRP normal Blood and urine cultures show no growth -X-ray imaging of thoracic and lumbar spine show no acute abnormalities. CT thoracic spine negative for abnormalities -Continue Motrin q6h PRN and daily lidocaine patch for pain relief -Retic count 1.0 and H/H stable less likely sickle cell crisis Headache -ID on consult -CT head ordered to r/o etiologies secondary to patient being immunocompromised Psychosis -Patient is having hallucinations, flight of ideas, racing thoughts -Psychiatry consulted -Continue with medication regimen as per psych; seroquel, depakote -As per psych once patient is medically cleared he will be given the option to voluntarily enter unit, if patient refuses he will be screened by [facility] Sore throat -Continue with azithromycin Transaminitis -Hepatitis panel negative -Resolving Hx of sickle cell anemia -H/H stable -Retic count 1.0 on admission Hx of HIV -ID on consult -Continue azithromycin -Previous CD4 count <20 -Repeat CD4 count and viral load pending Hx of drug abuse -Azithromycin for ppx and sore throat -Counseled on drug abuse Hx of aortic valve replacement/endocarditis/IV drug abuse -Blood cultures are negative -As of now patient remains afebrile without leukocytosis DVT/GI ppx: Lovenox/Protonix Case discussed and reviewed with Dr. Cho <Gautam Cho - Last Filed: 07/18/18 15:51> Objective - Vital Signs/Intake and Output Vital Signs (last 24 hours): Temp Pulse Resp BP Pulse Ox 98.3 F 80 20 128/64 100 07/18/18 06:00 07/18/18 06:00 07/18/18 06:00 07/18/18 06:00 07/18/18 06:00 - Medications Medications: Current Medications Azithromycin (Zithromax) 500 mg PO DAILY [facility] Stop: 07/20/18 17:01 Diphenhydramine HCl (Benadryl) 25 mg PO HS PRN PRN Reason: Insomnia Last Admin: 07/17/18 23:01 Dose: 25 mg Divalproex Sodium (Depakote Dr(*Bid*)) 500 mg PO [facility]; Protocol Enoxaparin Sodium (Lovenox) 40 mg SC DAILY [facility]; Protocol Last Admin: 07/18/18 10:20 Dose: 40 mg Ibuprofen (Motrin Tab) 600 mg PO Q6H PRN PRN Reason: Pain, severe (8-10) Lidocaine (Lidoderm) 1 ea TD DAILY [facility] Last Admin: 07/18/18 10:20 Dose: 1 ea Pantoprazole Sodium (Protonix Ec Tab) 40 mg PO 0600 [facility] Last Admin: 07/18/18 06:35 Dose: 40 mg Quetiapine Fumarate (Seroquel) 50 mg PO [facility]; Protocol - Labs Labs: 07/18/18 06:20 07/18/18 06:20 Attending/Attestation - Attestation I have personally seen and examined this patient.: Yes I have fully participated in the care of the patient.: Yes I have reviewed all pertinent clinical information, including history, physical exam and plan: Yes Notes (Text): 07/18/18 15:46 38 year old homeless male with past medical history of HIV, sickle cell anemia, MVP, AVR (2012), endocarditis, substance abuse including IVDA and psychiatric disorder who presented with complaint of back pain. Xray thoracic/lumbar spine were negative. ESR was elevated but CRP was normal. CT spine is negative for abscess. Continue with motrin prn. ID evaluation was also requested for HIV. Patient is noncompliant as outpatie nt. Overnight events reviewed; patient appears to have psychosis with racing thoughts, flight of ideas and hallucinations. He was seen by psychiatry and started on depakote and seroquel. Consider inpatient psychiatric admitted if patient is agreeable vs involuntary with [facility] screener when patient is medically cleared. CT head was obtained which showed chronic microvascular changes in the periventricular white matter, mild atrophy, with no acute intracranial abnormality. LFTs are improving. Hepatitis panel was negative. Patient was counselled on medication and outpatient follow up compliance. Patient was counselled on risks of continued substance abuse. Gautam Cho MD Hospitalist.
--- NOTE | 2018-07-18 15:38 | CT ---
Date of service: 07/18/2018 PROCEDURE: CT HEAD WITHOUT CONTRAST. HISTORY: altered mental status COMPARISON: None available. TECHNIQUE: Axial computed tomography images were obtained through the head/brain without intravenous contrast. Radiation dose: Total exam DLP = 990.71 mGy-cm. This CT exam was performed using one or more of the following dose reduction techniques: Automated exposure control, adjustment of the mA and/or kV according to patient size, and/or use of iterative reconstruction technique. FINDINGS: HEMORRHAGE: No intracranial hemorrhage. BRAIN: No mass effect or edema. Chronic microvascular changes are seen in the periventricular white matter. There is mild atrophy VENTRICLES: Unremarkable. No hydrocephalus. CALVARIUM: Unremarkable. PARANASAL SINUSES: Unremarkable as visualized. No significant inflammatory changes. MASTOID AIR CELLS: Unremarkable as visualized. No inflammatory changes. OTHER FINDINGS: None. IMPRESSION: No acute intracranial findings
--- NOTE | 2018-07-18 17:09 | CP.PCM.CON ---
History of Present Illness - History of Present Illness History of Present Illness: Infectious Disease Consultation: July 18, 2018 38 yo male with PMHx of HIV, sickle cell anemia, MVP, endocarditis, Aortic valve replacement in 2012, crystal meth IV drug abuse, and history of admissions for schizophrenia presenting with complaints of back pain which began this past Saturday. Describes pain as sharp, 10/10 non radiating, exacerbated with movements triggered by carrying his heavy clothes and objects through the city. Patient states he also has been having a sore throat for the past week for which he went to [facility] two days ago for evaluation; as per patient he was prescribed azith romycin however has not noticed any improvements in his symptoms. Patient states his last CD4 count was 29 and his last time on HAART therapy consistently was between November-December this year but due to constantly [facility] he is unable to be compliant with his medications. Patient denies fevers, chills, cough, diarrhea, abdominal pain, nausea, vomiting, chest pain, dysuria. 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, denies tobacco use, admits to occasional alcohol use (4 lokos every 5 months or so), admits to IV drug abuse (crystal meth for which patient says he pays for with his own money from his previous job as a teacher) Allergies: mirtazapine, aripiprazole Active Medications Azithromycin (Zithromax) 500 mg PO DAILY [facility] Stop: 07/20/18 17:01 Diphenhydramine HCl (Benadryl) 25 mg PO HS PRN PRN Reason: Insomnia Last Admin: 07/17/18 23:01 Dose: 25 mg Divalproex Sodium (Depakote Dr(*Bid*)) 500 mg PO [facility]; Protocol Enoxaparin Sodium (Lovenox) 40 mg SC DAILY [facility]; Protocol Last Admin: 07/18/18 10:20 Dose: 40 mg Ibuprofen (Motrin Tab) 600 mg PO Q6H PRN PRN Reason: Pain, severe (8-10) Lidocaine (Lidoderm) 1 ea TD DAILY [facility] Last Admin: 07/18/18 10:20 Dose: 1 ea Pantoprazole Sodium (Protonix Ec Tab) 40 mg PO 0600 [facility] Last Admin: 07/18/18 06:35 Dose: 40 mg Quetiapine Fumarate (Seroquel) 50 mg PO [facility]; Protocol Family Hx: none given ROS: no fevers, chills, nausea, vomiting, diarrhea, headaches, dizziness, chest pain, abdominal pain, melena, hematuria, hematemesis, hematochezia, depression, anxiety. Past Patient History - Infectious Disease Hx of Infectious Diseases: None - Tetanus Immunizations Tetanus Immunization: Unknown - Past Medical History & Family History Past Medical History?: Yes - Past Social History Smoking Status: Never Smoked - CARDIAC Hx Hypertension: Yes Hx Mitral Valve Prolapse: (mv regurgitation) - PULMONARY Hx Respiratory Disorders: No - NEUROLOGICAL Hx Seizures: Yes - HEENT Hx HEENT Problems: No - RENAL Hx Chronic Kidney Disease: No - ENDOCRINE/METABOLIC Hx Endocrine Disorders: No - HEMATOLOGICAL/ONCOLOGICAL Hx Anemia: Yes Hx Sickle Cell Disease: Yes - INTEGUMENTARY Hx Dermatological Problems: No - MUSCULOSKELETAL/RHEUMATOLOGICAL Hx Musculoskeletal Disorders: No Hx Falls: No - GASTROINTESTINAL Hx Gastrointestinal Disorders: No - GENITOURINARY/GYNECOLOGICAL Hx Sexually Transmitted Disorders: Yes - PSYCHIATRIC Hx Anxiety: Yes Hx Bipolar Disorder: Yes Hx Depression: Yes Hx Schizophrenia: Yes Hx Substance Use: Yes (crystal meth) - SURGICAL HISTORY Hx Orthopedic Surgery: Yes (Bunionectomy) Hx Valve Replacement: Yes (AORTIC VALVE REPLACEMENT) Other/Comment: aortic valve replacement 2012/mitral valve repair - ANESTHESIA Hx Anesthesia: Yes Hx Anesthesia Reactions: No Hx Malignant Hyperthermia: No Meds Allergies/Adverse Reactions: Allergies Allergy/AdvReac Type Severity Reaction Status Date / Time aripiprazole [From Abilify] Allergy URTICARIA Verified 01/21/18 19:20 mirtazapine [From Remeron] Allergy CONGESTION Verified 01/21/18 19:20 - Medications Medications: Current Medications Azithromycin (Zithromax) 500 mg PO DAILY [facility] Stop: 07/20/18 17:01 Diphenhydramine HCl (Benadryl) 25 mg PO HS PRN PRN Reason: Insomnia Last Admin: 07/17/18 23:01 Dose: 25 mg Divalproex Sodium (Depakote Dr(*Bid*)) 500 mg PO [facility]; Protocol Enoxaparin Sodium (Lovenox) 40 mg SC DAILY [facility]; Protocol Last Admin: 07/18/18 10:20 Dose: 40 mg Ibuprofen (Motrin Tab) 600 mg PO Q6H PRN PRN Reason: Pain, severe (8-10) Lidocaine (Lidoderm) 1 ea TD DAILY [facility] Last Admin: 07/18/18 10:20 Dose: 1 ea Pantoprazole Sodium (Protonix Ec Tab) 40 mg PO 0600 [facility] Last Admin: 07/18/18 06:35 Dose: 40 mg Quetiapine Fumarate (Seroquel) 50 mg PO [facility]; Protocol Physical Exam - Constitutional Appears: Non-toxic, No Acute Distress, Chronically Ill - Head Exam Head Exam: ATRAUMATIC, NORMOCEPHALIC - Eye Exam Eye Exam: EOMI, PERRL Pupil Exam: NORMAL ACCOMODATION, PERRL - ENT Exam ENT Exam: Mucous Membranes Moist, Normal External Ear Exam, TM's Normal Bilaterally - Neck Exam Neck exam: Positive for: Full Rom, Normal Inspection - Respiratory Exam Respiratory Exam: Clear to Auscultation Bilateral, NORMAL BREATHING PATTERN. absent: Rales, Rhonchi, Wheezes - Cardiovascular Exam Cardiovascular Exam: REGULAR RHYTHM, RRR, +S1, +S2 - GI/Abdominal Exam GI & Abdominal Exam: Normal Bowel Sounds, Soft. absent: Distended, Tenderness - Extremities Exam Extremities exam: Positive for: full ROM, normal inspection - Neurological Exam Neurological exam: Alert, CN II-XII Intact, Oriented x3 - Psychiatric Exam Psychiatric exam: Agitated, Anxious - Skin Skin Exam: Intact, Normal Color Results - Vital Signs Recent Vital Signs: Last Vital Signs Temp 98.3 F 07/18/18 06:00 Pulse 80 07/18/18 06:00 Resp 20 07/18/18 06:00 BP 128/64 07/18/18 06:00 Pulse Ox 100 07/18/18 06:00 - Labs Result Diagrams: 07/18/18 06:20 07/18/18 06:20 Labs: Laboratory Results - last 24 hr 07/17/18 07/18/18 07/18/18 12:00 06:20 06:20 WBC RBC Hgb Hct MCV MCH MCHC RDW Plt Count MPV Gran % Lymph % (Auto) [place] % (Auto) Eos % (Auto) Baso % (Auto) Gran # Lymph # (Auto) [place] # (Auto) Eos # (Auto) Baso # (Auto) Sodium Potassium Chloride Carbon Dioxide Anion Gap BUN Creatinine Est GFR ( Amer) Est GFR (Non-Af Amer) Random Glucose Calcium Total Bilirubin AST ALT Alkaline Phosphatase C-React Prot High Sens 1.33 NT-Pro-B Natriuret Pep 648 H Total Protein Albumin Globulin Albumin/Globulin Ratio Hepatitis A IgM Ab Negative Hep Bs Antigen Negative Hep B Core IgM Ab Negative Hepatitis C Antibody Negative 07/18/18 07/18/18 06:20 06:20 WBC 3.5 L RBC 3.60 Hgb 9.5 L Hct 30.5 L MCV 84.7 MCH 26.4 MCHC 31.1 RDW 15.0 H Plt Count 170 MPV 11.3 H Gran % 58.3 Lymph % (Auto) 21.4 L [place] % (Auto) 17.7 H Eos % (Auto) 2.3 Baso % (Auto) 0.3 Gran # 2.05 Lymph # (Auto) 0.8 L [place] # (Auto) 0.6 Eos # (Auto) 0.1 Baso # (Auto) 0.01 Sodium 140 Potassium 4.4 Chloride 110 H Carbon Dioxide 28 Anion Gap 7 L BUN 27 H Creatinine 1.1 Est GFR ( Amer) > 60 Est GFR (Non-Af Amer) > 60 Random Glucose 79 Calcium 8.5 Total Bilirubin 0.7 AST 88 H ALT 48 Alkaline Phosphatase 126 C-React Prot High Sens NT-Pro-B Natriuret Pep Total Protein 8.1 Albumin 3.6 Globulin 4.5 Albumin/Globulin Ratio 0.8 L Hepatitis A IgM Ab Hep Bs Antigen Hep B Core IgM Ab Hepatitis C Antibody Assessment & Plan - Assessment and Plan (Free Text) Assessment: 38 yo male with HIV with likely AIDS classification with sore throat presenting with low back pains. History of Crystal Meth abuse (still actively using), Sickle Cell Anemia, Mitral Valve Prolapse, history of endocarditis, Aortic Valve replacement in 2012. No fevers. Leukopenia. Currently with transaminitis. Recheck Hepatitis workup. Supportive care. Patient needs set up with outpatient HIV clinic in [facility]. To my understanding, the patient has no benefits in [place] as he is [place] Medicaid. Thank you for allowing me to participate in the care of this patient, we will follow with you.
[2018-07-18] MEDS: Divalproex 500 mg DR(BID formulation) PO SCH (21:16)
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
[2018-07-19] MEDS: Pantoprazole 40 mg EC Tab PO SCH (05:22)
[2018-07-19 08:05] LABS: ALB/GLOB RATIO 0.9 (1.1-1.8); ALBUMIN 3.6 g/dL (3.0-4.8); ALT/SGPT 41 U/L (7-56); AST/SGOT 80 U/L (17-59); BLOOD UREA NITROGEN 21 mg/dL (7-21); CALCIUM 8.2 mg/dL (8.4-10.5); GFR NON-AFRICAN AMERICAN > 60
[2018-07-19 08:09] LABS: BASO # 0.01 K/mm3 (0.0-2.0); BASO % 0.3 % (0.0-3.0); EOS # 0.1 (0.0-0.7); GRAN # 2.07 (1.4-6.5); GRAN % 59.2 % (50.0-68.0); HEMOGLOBIN 9.6 g/dL (14.0-18.0); LYMPH % 27.4 % (22.0-35.0); MEAN CELL VOLUME 84.4 fl (80.0-105.0); MEAN CORPUSCULAR HEMOGLOBIN 26.8 pg (25.0-35.0); MEAN CORPUSCULAR HGB CONC 31.8 g/dl (31.0-37.0); MONO # 0.4 (0.1-0.6); MONO % 11.1 % (1.0-6.0); PLATELET COUNT 185 10^3/uL (120.0-450.0); RBC 3.58 10^6/uL (3.5-6.1); WHITE BLOOD COUNT 3.5 10^3/uL (4.5-11.0)
[2018-07-19] MEDS: Divalproex 500 mg DR(BID formulation) PO SCH ×2 (10:31→21:38)
[2018-07-19] MEDS: Enoxaparin 40 mg Syringe SC SCH (10:31)
[2018-07-19] MEDS: Lidocaine 5% Patch TD SCH (10:32)
--- NOTE | 2018-07-19 14:18 | CP.PCM.PN ---
Subjective - Date & Time of Evaluation Date of Evaluation: 07/19/18 Time of Evaluation: 12:45 - Subjective Subjective: Infectious Disease Follow Up: July 19, 2018 38 yo male with PMHx of HIV, sickle cell anemia, MVP, endocarditis, Aortic valve replacement in 2012, crystal meth IV drug abuse, and history of admissions for schizophrenia presenting with complaints of back pain which began this past Saturday. Describes pain as sharp, 10/10 non radiating, exacerbated with movements triggered by carrying his heavy clothes and objects through the city. Patient states he also has been having a sore throat for the past week for which he went to [place] two days ago for evaluation; as per patient he was prescribed azithromycin however has not noticed any improvements in his symptoms. Patient states his last CD4 count was 29 and his last time on HAART therapy consistently was between November-December this year but due to constantly moving from group home to group home he is unable to be compliant with his medications. Patient denies fevers, chills, cough, diarrhea, abdominal pain, nausea, vomiting, chest pain, dysuria. Patient with flight of thoughts and uninhibited behavior. Objective - Vital Signs/Intake and Output Vital Signs (last 24 hours): Temp Pulse Resp BP Pulse Ox 98.3 F 88 20 142/97 H 99 07/19/18 06:00 07/19/18 06:00 07/19/18 06:00 07/19/18 06:00 07/19/18 06:00 - Medications Medications: Current Medications Azithromycin (Zithromax) 500 mg PO DAILY [facility] Stop: 07/20/18 17:01 Last Admin: 07/19/18 10:30 Dose: 500 mg Diphenhydramine HCl (Benadryl) 25 mg PO HS PRN PRN Reason: Insomnia Last Admin: 07/18/18 21:16 Dose: 25 mg Divalproex Sodium (Depakote Dr(*Bid*)) 500 mg PO [facility]; Protocol Last Admin: 07/19/18 10:31 Dose: 500 mg Enoxaparin Sodium (Lovenox) 40 mg SC DAILY [facility]; Protocol Last Admin: 07/19/18 10:31 Dose: 40 mg Ibuprofen (Motrin Tab) 600 mg PO Q6H PRN PRN Reason: Pain, severe (8-10) Lidocaine (Lidoderm) 1 ea TD DAILY [facility] Last Admin: 07/19/18 10:32 Dose: 1 ea Pantoprazole Sodium (Protonix Ec Tab) 40 mg PO 0600 [facility] Last Admin: 07/19/18 05:22 Dose: 40 mg Quetiapine Fumarate (Seroquel) 50 mg PO [facility]; Protocol Last Admin: 07/19/18 10:31 Dose: 50 mg - Labs Labs: 07/19/18 07:00 07/19/18 07:00 - Constitutional Appears: Non-toxic, No Acute Distress, Chronically Ill - Head Exam Head Exam: ATRAUMATIC, NORMOCEPHALIC - Eye Exam Eye Exam: EOMI, PERRL Pupil Exam: NORMAL ACCOMODATION, PERRL - ENT Exam ENT Exam: Mucous Membranes Moist, Normal External Ear Exam, TM's Normal Bilaterally - Neck Exam Neck Exam: Full ROM, Normal Inspection - Respiratory Exam Respiratory Exam: Clear to Ausculation Bilateral, NORMAL BREATHING PATTERN. absent: Rales, Rhonchi, Wheezes - Cardiovascular Exam Cardiovascular Exam: REGULAR RHYTHM, RRR, +S1, +S2 - GI/Abdominal Exam GI & Abdominal Exam: Soft, Normal Bowel Sounds. absent: Distended, Tenderness - Extremities Exam Extremities Exam: Full ROM, Normal Inspection - Neurological Exam Neurological Exam: Alert, Awake, CN II-XII Intact, Oriented x3 - Psychiatric Exam Additional comments: manic, flight of thoughts. - Skin Skin Exam: Intact, Normal Color Assessment and Plan - Assessment and Plan (Free Text) Assessment: 38 yo male with HIV with likely AIDS classification with sore throat presenting with low back pains. History of Crystal Meth abuse (still actively using), Sickle Cell Anemia, Mitral Valve Prolapse, history of endocarditis, Aortic Valve replacement in 2012. No fevers. Leukopenia. Currently with transaminitis. Recheck Hepatitis workup. Supportive care. Patient with flight of thoughts, manic, and uninhibited behavior. Patient needs set up with outpatient HIV clinic in [facility]. To my understanding, the patient has no benefits in [place] as he is [place] Medicaid. Thank you for allowing me to participate in the care of this patient, we will follow with you.
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
[2018-07-19 15:55] LABS: % CD4 (T HELPER CELL) 4 Percent (30-61); % CD8 (SUPPRESSOR T CELL) 67 Percent (12-42); ABSOLUTE CD4 CELLS 34 Cells/mcL (490-1740); ABSOLUTE CD8 CELLS 586 Cells/mcL (180-1170); ABSOLUTE LYMPHOCYTES 872 Cells/mcL (850-3900); HELPER/SUPPRESSOR RATIO 0.06 Ratio (0.86-5.00)
--- NOTE | 2018-07-20 07:51 | CP.PCM.PN ---
<Logan Zhao - Last Filed: 07/20/18 12:16> Subjective - Date & Time of Evaluation Date of Evaluation: 07/20/18 Time of Evaluation: 07:49 - Subjective Subjective: Patient seen and examined at bedside in no acute distress. Was sleeping at the time. Upon awakening patient appears to be pleasant. States he saw his sister and mother yesterday but does not recall discussing with his sister regarding going to the psych unit voluntarily. States he hates his sister she makes him irate and that he hates the word irate. He states he does not want to go and wants to go home to his sister's house. Objective - Vital Signs/Intake and Output Vital Signs (last 24 hours): Temp Pulse Resp BP Pulse Ox 97.9 F 95 H 18 129/78 96 07/19/18 22:49 07/19/18 22:49 07/19/18 22:49 07/19/18 22:50 07/19/18 22:49 Intake and Output: 07/20/18 07/20/18 06:59 18:59 Intake Total 1140 Balance 1140 - Medications Medications: Current Medications Azithromycin (Zithromax) 500 mg PO DAILY [facility] Stop: 07/20/18 17:01 Last Admin: 07/19/18 10:30 Dose: 500 mg Diphenhydramine HCl (Benadryl) 25 mg PO HS PRN PRN Reason: Insomnia Last Admin: 07/19/18 21:38 Dose: 25 mg Divalproex Sodium (Depakote Dr(*Bid*)) 500 mg PO [facility]; Protocol Last Admin: 07/19/18 21:38 Dose: 500 mg Enoxaparin Sodium (Lovenox) 40 mg SC DAILY [facility]; Protocol Last Admin: 07/19/18 10:31 Dose: 40 mg Ibuprofen (Motrin Tab) 600 mg PO Q6H PRN PRN Reason: Pain, severe (8-10) Lidocaine (Lidoderm) 1 ea TD DAILY [facility] Last Admin: 07/19/18 10:32 Dose: 1 ea Pantoprazole Sodium (Protonix Ec Tab) 40 mg PO 0600 [facility] Last Admin: 07/19/18 05:22 Dose: 40 mg Quetiapine Fumarate (Seroquel) 50 mg PO [facility]; Protocol Last Admin: 07/19/18 21:38 Dose: 50 mg - Labs Labs: 07/19/18 07:00 07/19/18 07:00 - Constitutional Appears: Non-toxic, No Acute Distress - Head Exam Head Exam: ATRAUMATIC, NORMAL INSPECTION, NORMOCEPHALIC - Eye Exam Eye Exam: EOMI, Normal appearance - ENT Exam ENT Exam: Mucous Membranes Moist - Neck Exam Neck Exam: Full ROM - Respiratory Exam Respiratory Exam: Clear to Ausculation Bilateral, NORMAL BREATHING PATTERN. absent: Rhonchi, Wheezes - Cardiovascular Exam Cardiovascular Exam: REGULAR RHYTHM, +S1, +S2 - GI/Abdominal Exam GI & Abdominal Exam: Soft, Normal Bowel Sounds - Neurological Exam Neurological Exam: Alert, Awake, Oriented x3 - Psychiatric Exam Psychiatric exam: Normal Affect, Normal Mood - Skin Skin Exam: Normal Color, Warm Assessment and Plan - Assessment and Plan (Free Text) Assessment: 38 with a history of HIV, sickle cell anemia, MVP, endocarditis, Aortic valve replacement in 2012, crystal meth IV drug abuse who presents with complaints of back pain with CT spine negative for abscess. Patient continues to exhibit patterns of psychosis with tangential speech and disorganized thought process. Plan: Back pain - Etiology: spinal abscess vs. sickle cell crisis vs. chronic back pain - ESR elevated, CRP normal Blood and urine cultures show no growth; therefore pain most likely not of infectious etiology - X-ray imaging of thoracic and lumbar spine show no acute abnormalities. CT thoracic spine negative for abnormalities - Continue Motrin q6h PRN and daily lidocaine patch for pain relief - Retic count 1.0 and H/H stable less likely sickle cell crisis Headache - ID on consult; will discuss starting prophylactic meds - CT head reveal no acute abnormalities Psychosis - Patient continues to have flight of ideas, racing thoughts however this has improved since day of admission - Psychiatry consulted, Dr. Alexander/Dr. Hernandez - Continue with medication regimen as per psych; seroquel, depakote - As per psych once patient is medically cleared he will be given the option to voluntarily enter unit, if patient refuses he will be screened by [facility] as patient is not cleared from psych Sore throat - Continue with azithromycin Transaminitis - Hepatitis panel negative - LFT levels continue to improve Hx of sickle cell anemia -H/H stable -Retic count 1.0 on admission Hx of HIV - ID on consult - Continue azithromycin - Repeat CD4 count 34; prophylaxis therapy-discuss with ID - Repeat viral load still pending Hx of drug abuse - Counseled on drug abuse and cessation - Continue to monitor for acute behavioral and lab changes Hx of aortic valve replacement/endocarditis/IV drug abuse - Blood cultures are negative - As of now patient remains afebrile without leukocytosis DVT/GI ppx: - Lovenox - Protonix Disposition: Patient will be screened by [facility] since he is medically cleared and not willing to voluntarily go to the psychiatric unit. Patient case and plan discussed with attending, Dr. Cho <Gautam Cho - Last Filed: 07/20/18 16:31> Objective - Vital Signs/Intake and Output Vital Signs (last 24 hours): Temp Pulse Resp BP Pulse Ox 98.3 F 98 H 20 136/82 98 07/20/18 14:00 07/20/18 14:00 07/20/18 14:00 07/20/18 14:00 07/20/18 14:00 Intake and Output: 07/20/18 07/20/18 06:59 18:59 Intake Total 1140 Balance 1140 - Medications Medications: Current Medications Azithromycin (Zithromax) 500 mg PO DAILY [facility] Stop: 07/20/18 17:01 Last Admin: 07/20/18 09:38 Dose: 500 mg Diphenhydramine HCl (Benadryl) 25 mg PO HS PRN PRN Reason: Insomnia Last Admin: 07/19/18 21:38 Dose: 25 mg Divalproex Sodium (Depakote Dr(*Bid*)) 500 mg PO [facility]; Protocol Last Admin: 07/20/18 09:41 Dose: 500 mg Enoxaparin Sodium (Lovenox) 40 mg SC DAILY [facility]; Protocol Last Admin: 07/20/18 09:38 Dose: 40 mg Ibuprofen (Motrin Tab) 600 mg PO Q6H PRN PRN Reason: Pain, severe (8-10) Lidocaine (Lidoderm) 1 ea TD DAILY [facility] Last Admin: 07/20/18 09:39 Dose: 1 ea Lorazepam (Ativan) 1 mg PO Q4 PRN; Protocol PRN Reason: Anxiety Pantoprazole Sodium (Protonix Ec Tab) 40 mg PO 0600 [facility] Last Admin: 07/20/18 08:12 Dose: 40 mg Quetiapine Fumarate (Seroquel) 50 mg PO [facility]; Protocol Last Admin: 07/20/18 09:39 Dose: 50 mg - Labs Labs: 07/20/18 07:00 07/20/18 07:00 Attending/Attestation - Attestation I have personally seen and examined this patient.: Yes I have fully participated in the care of the patient.: Yes I have reviewed all pertinent clinical information, including history, physical exam and plan: Yes Notes (Text): 07/20/18 16:21 38 year old homeless male with past medical history of HIV, sickle cell anemia, MVP, AVR (2012), endocarditis, substance abuse including IVDA and psychiatric disorder who presented with complaint of back pain. Xray thoracic/lumbar spine were negative. ESR was elevated but CRP was normal. CT spine is negative for abscess. Continue with motrin prn. ID evaluation was appreciated for HIV. Recommended outpatient follow up in HIV clinic. Importance of compliance was discussed with patient. LFTs are improving. Hepatitis panel was negative. Patient was counselled on medication and outpatient follow up compliance. Patient was counselled on risks of continued substance abuse. Patient is also being followed by psychiatrist for psychosis. CT head was obtained which showed chronic microvascular changes in the periventricular white matter, mild atrophy, with no acute intracranial abnormality. He is on depakote and seroquel. Still has racing thoughts and disorganized thought process. He is not agreeable for voluntary admission to . Discussed with psychiatrist; will initiate [facility] screeners. Patient is medically clear for involuntary psychiatric admission. He is on 1:1 observation for risk of elopement. Gautam Cho MD Hospitalist.
[2018-07-20 08:05] LABS: BASO # 0.01 K/mm3 (0.0-2.0); BASO % 0.3 % (0.0-3.0); EOS # 0.1 (0.0-0.7); EOS % 2.1 % (1.5-5.0); GRAN # 1.64 (1.4-6.5); GRAN % 57.2 % (50.0-68.0); HEMOGLOBIN 10.1 g/dL (14.0-18.0); LYMPH # 0.7 (1.2-3.4); LYMPH % 25.1 % (22.0-35.0); MEAN CELL VOLUME 84.9 fl (80.0-105.0); MEAN CORPUSCULAR HEMOGLOBIN 26.4 pg (25.0-35.0); MEAN CORPUSCULAR HGB CONC 31.1 g/dl (31.0-37.0); MONO # 0.4 (0.1-0.6); MONO % 15.3 % (1.0-6.0); PLATELET COUNT 195 10^3/uL (120.0-450.0); RBC 3.83 10^6/uL (3.5-6.1); RED CELL DISTRIBUTION WIDTH 15.2 % (11.5-14.5); WHITE BLOOD COUNT 2.9 10^3/uL (4.5-11.0)
[2018-07-20] MEDS: Pantoprazole 40 mg EC Tab PO SCH (08:12)
[2018-07-20 08:25] LABS: ALB/GLOB RATIO 0.8 (1.1-1.8); ALBUMIN 3.8 g/dL (3.0-4.8); ALT/SGPT 29 U/L (7-56); AST/SGOT 72 U/L (17-59); BLOOD UREA NITROGEN 22 mg/dL (7-21); CALCIUM 8.7 mg/dL (8.4-10.5); GFR NON-AFRICAN AMERICAN > 60
[2018-07-20] MEDS: Enoxaparin 40 mg Syringe SC SCH (09:38)
[2018-07-20] MEDS: Lidocaine 5% Patch TD SCH (09:39)
[2018-07-20] MEDS: Divalproex 500 mg DR(BID formulation) PO SCH ×2 (09:41→22:03)
--- NOTE | 2018-07-20 10:31 | PN ---
DATE: 07/20/2018 FOLLOWUP NOTE SUBJECTIVE: Shortly, the patient is a 38-year-old male, multiple medical issues including hypertension, seizure disorder. The patient is on Keppra, Lamictal. The patient has HIV and AIDS, sickle cell disease. The patient presented to the emergency room with back pain. Psych consult was called because the patient presented to be bizarre, delusional with flight of ideas. Dr. Alexander and was consulted on the medical site. Notes reviewed. This proposal manager writer is taking over. The patient was seen today. The patient presented to be oddly related, has multiple comics pictures on the wall. The patient had childlike demeanor, mildly disorganized. The patient reported that he came to the hospital because he was walking naked in the community. This proposal manager writer is not sure is that true or not. The patient reported that he came from [place] in order to spend Thanksgiving with his family, aunt. The patient then said that he was in [facility] about a week ago, was discharged on Depakote as well as Seroquel, which is supposed to be 200 mg at the nighttime. The patient reported that he was noncompliant with the medication because his insurance is not effective yet here in [place] and the patient has Medicaid in [place]. This proposal manager writer is not sure if it is true or not. The patient denied being depressed. The patient denied any thoughts of harming himself or others, but the patient presented with mild disorganized and over inclusive thought process. The patient denied thoughts of harming himself or others, but making statements such as I should be but by because I have AIDS. Denied that he has any intent or plan to kill himself. Vital signs seems to be stable. Temperature 98.1, pulse is 85, blood pressure 134/88, respirations 20, oxygen saturation is 99. Medications reviewed. The patient is on Zithromax, Benadryl, Depakote 500 mg twice a day, Lovenox, Motrin, Lidoderm, Protonix, Seroquel 50 mg at the morning time and at the nighttime. Labs reviewed. WBC cells 2.9, granulocytes 1.64. There are no signs of granulocytosis. Chemistry reviewed. Urinalysis reviewed. Toxicology reviewed. Amphetamines positive. Immunology reviewed. Serology reviewed. Microbiology reviewed. MENTAL STATUS EXAMINATION: The patient presented to be alert. The patient knows that he is in the hospital. Intermittent eye contact. Acceptable personal hygiene. Thought process circumstantial and tangential. Mood described, I am fine, I am hungry. Affect was flat. Thought content, the patient presented to be disorganized in his thoughts, but denied hearing voices, denied seeing things, but the patient presented to be responding to internal stimuli. The patient is not agitated or aggressive. Insight and judgment seems to be limited. Impulses are well controlled at present moment. IMPRESSION: Most likely, the patient has schizoaffective disorder, but the patient said that he was diagnosed with bipolar disorder. This proposal manager writer cannot exclude that the patient has psychosis due to stimulant use disorder, medication-induced psychosis. PLAN: Continue current management. Continue current medications. We will monitor the patient closely. The patient does not want to stay in the Psychiatric Inpatient Unit. After medical clearance, most likely will need to have [facility] screening process initiated. At the same time, this proposal manager writer cannot exclude that most likely the patient might sign himself into the Psychiatric Inpatient Unit. We will follow up and advise accordingly. Thank you very much for letting me participate in the care of your patient. Should you have any questions, give me a call back. Mary Frazier MD KAIN
--- NOTE | 2018-07-20 17:52 | CP.PCM.PN ---
Subjective - Date & Time of Evaluation Date of Evaluation: 07/20/18 Time of Evaluation: 16:00 - Subjective Subjective: Infectious Disease Follow Up: July 20, 2018 38 yo male with PMHx of HIV, sickle cell anemia, MVP, endocarditis, Aortic valve replacement in 2012, crystal meth IV drug abuse, and history of admissions for schizophrenia presenting with complaints of back pain which began this past Saturday. Describes pain as sharp, 10/10 non radiating, exacerbated with movements triggered by carrying his heavy clothes and objects through the city. Patient states he also has been having a sore throat for the past week for which he went to [place] two days ago for evaluation; as per patient he was prescribed azithromycin however has not noticed any improvements in his symptoms. Patient states his last CD4 count was 29 and his last time on HAART therapy consistently was between November-December this year but due to constantly moving from group home to group home he is unable to be compliant with his medications. Patient denies fevers, chills, cough, diarrhea, abdominal pain, nausea, vomiting, chest pain, dysuria. Patient with rapid flight of thoughts and uninhibited behavior. He has extreme difficulty maintaining a single line of thought. Objective - Vital Signs/Intake and Output Vital Signs (last 24 hours): Temp Pulse Resp BP Pulse Ox 98.3 F 98 H 20 136/82 98 07/20/18 14:00 07/20/18 14:00 07/20/18 14:00 07/20/18 14:00 07/20/18 14:00 Intake and Output: 07/20/18 07/20/18 06:59 18:59 Intake Total 1140 Balance 1140 - Medications Medications: Current Medications Diphenhydramine HCl (Benadryl) 25 mg PO HS PRN PRN Reason: Insomnia Last Admin: 07/19/18 21:38 Dose: 25 mg Divalproex Sodium (Depakote Dr(*Bid*)) 500 mg PO [facility]; Protocol Last Admin: 07/20/18 09:41 Dose: 500 mg Enoxaparin Sodium (Lovenox) 40 mg SC DAILY [facility]; Protocol Last Admin: 07/20/18 09:38 Dose: 40 mg Ibuprofen (Motrin Tab) 600 mg PO Q6H PRN PRN Reason: Pain, severe (8-10) Lidocaine (Lidoderm) 1 ea TD DAILY [facility] Last Admin: 07/20/18 09:39 Dose: 1 ea Lorazepam (Ativan) 1 mg PO Q4 PRN; Protocol PRN Reason: Anxiety Pantoprazole Sodium (Protonix Ec Tab) 40 mg PO 0600 [facility]ETH Last Admin: 07/20/18 08:12 Dose: 40 mg Quetiapine Fumarate (Seroquel) 50 mg PO [facility]; Protocol Last Admin: 07/20/18 09:39 Dose: 50 mg - Labs Labs: 07/20/18 07:00 07/20/18 07:00 - Constitutional Appears: Non-toxic, No Acute Distress, Chronically Ill - Head Exam Head Exam: ATRAUMATIC, NORMOCEPHALIC - Eye Exam Eye Exam: EOMI, PERRL Pupil Exam: NORMAL ACCOMODATION, PERRL - ENT Exam ENT Exam: Mucous Membranes Moist, Normal External Ear Exam, TM's Normal Bilaterally - Neck Exam Neck Exam: Full ROM, Normal Inspection - Respiratory Exam Respiratory Exam: Clear to Ausculation Bilateral, NORMAL BREATHING PATTERN. absent: Rales, Rhonchi, Wheezes - Cardiovascular Exam Cardiovascular Exam: REGULAR RHYTHM, RRR, +S1, +S2 - GI/Abdominal Exam GI & Abdominal Exam: Soft, Normal Bowel Sounds. absent: Distended, Tenderness - Extremities Exam Extremities Exam: Full ROM, Normal Inspection - Neurological Exam Neurological Exam: Alert, Awake, CN II-XII Intact, Oriented x3 - Psychiatric Exam Additional comments: manic, rapid flight of thoughts. - Skin Skin Exam: Intact, Normal Color Assessment and Plan - Assessment and Plan (Free Text) Assessment: 38 yo male with HIV with likely AIDS classification with sore throat presenting with low back pains. History of Crystal Meth abuse (still actively using), Si ckle Cell Anemia, Mitral Valve Prolapse, history of endocarditis, Aortic Valve replacement in 2012. No fevers. Leukopenia. Currently with transaminitis. Recheck Hepatitis workup. Supportive care. Patient with flight of thoughts, manic, and uninhibited behavior. Patient needs set up with outpatient HIV clinic in [facility]. To my understanding, the patient has no benefits in [place] as he is [place]. Limited options for care of the patient in [place]. Thank you for allowing me to participate in the care of this patient, we will follow with you.
[2018-07-20 22:46] VITALS: RESP 18
[2018-07-21] MEDS: Pantoprazole 40 mg EC Tab PO SCH (06:11)
--- NOTE | 2018-07-21 07:45 | CON ---
DATE: 07/19/2018 HISTORY OF PRESENT ILLNESS: The patient is a 38-year-old -[place] male with a history of schizophrenia, amphetamine use disorder as well as HIV, multiple psychiatric hospitalizations secondary to disorganized psychotic behaviors who was admitted to the medical floor after he presented to the ER complaining of back pain. Psychiatry was consulted because he was observed to be quite bizarre on the medical floor, specifically he was restless with a flight of ideas, rapid speech, paranoid and delusional and required p.r.n. Haldol. I met with the patient at bedside yesterday and again today, and the patient continues to be quite disorganized, paranoid, oddly related. Speech is most rapid today, but still the patient is quite illogical when he engages in a conversation. Nevertheless, he is oriented to current circumstances, month, year and location and can respond consistently regarding questions of his history or current comfort level. Again, he is quite disorganized and in this respect, he is unpredictable. The patient has been agreeable with treatment recommendations and cooperative on the unit in this respect. He almost appears to be considering signing in voluntarily to the psychiatric unit and he is screening once he is medically cleared. He is improved; however, still quite psychotic. Restlessness appears to have improved with Seroquel and Depakote. He denies any issues with these medications. The patient did not require any p.r.n's after receiving Haldol when he first arrived. PSYCHIATRIC MEDICATIONS: Include Seroquel 50 mg in a.m. and at bedtime, and Depakote 500 mg a.m. and at bedtime. Labs and vitals were reviewed. IMPRESSION: Psychosis, not otherwise specified. Mood, not otherwise specified. Methamphetamine dependency likely contributing to a substance induced mood disorder presentation/substance induced psychotic disorder presentation. Rule out schizoaffective disorder. Rule out psychosis secondary to generalized medical condition specifically . RECOMMENDATIONS: I spoke with resident as well as nursing staff regarding the patient's behaviors. The patient appeared to be psychiatrically stable and is medically cleared. He appears to be more open to signing in voluntarily to our psychiatric unit, however, it is not certain whether he will do so once medically cleared. Regardless if he should be medically cleared and does not want to sign in, he should be screened by [facility] for involuntary hospitalization. I will be following up with the patient, next followup will be on 07/20/2018. The patient has been improving with Seroquel and Depakote at current doses and has not been a behavioral issues in about 24 hours, and I will continue these medications as there is no acute indication to change them. David Alexander MD
[2018-07-21 07:48] LABS: BASO # 0.01 K/mm3 (0.0-2.0); BASO % 0.3 % (0.0-3.0); EOS % 0.9 % (1.5-5.0); GRAN # 2.05 (1.4-6.5); GRAN % 61.1 % (50.0-68.0); HEMOGLOBIN 10.8 g/dL (14.0-18.0); LYMPH % 28.4 % (22.0-35.0); MEAN CELL VOLUME 84.6 fl (80.0-105.0); MEAN CORPUSCULAR HEMOGLOBIN 27.3 pg (25.0-35.0); MEAN CORPUSCULAR HGB CONC 32.2 g/dl (31.0-37.0); MONO # 0.3 (0.1-0.6); MONO % 9.3 % (1.0-6.0); PLATELET COUNT 178 10^3/uL (120.0-450.0); RBC 3.96 10^6/uL (3.5-6.1); RED CELL DISTRIBUTION WIDTH 15.2 % (11.5-14.5); WHITE BLOOD COUNT 3.4 10^3/uL (4.5-11.0)
[2018-07-21 08:07] LABS: ALB/GLOB RATIO 0.8 (1.1-1.8); ALT/SGPT 31 U/L (7-56); AST/SGOT 64 U/L (17-59); BLOOD UREA NITROGEN 25 mg/dL (7-21); CALCIUM 8.8 mg/dL (8.4-10.5); GFR NON-AFRICAN AMERICAN > 60
--- NOTE | 2018-07-21 09:12 | CP.PCM.PN ---
Objective - Vital Signs/Intake and Output Vital Signs (last 24 hours): Temp Pulse Resp BP Pulse Ox 98.1 F 85 18 124/85 98 07/20/18 22:00 07/20/18 22:00 07/20/18 22:00 07/20/18 22:00 07/20/18 14:00 Intake and Output: 07/21/18 07/21/18 06:59 18:59 Intake Total 800 Balance 800 - Medications Medications: Current Medications Diphenhydramine HCl (Benadryl) 25 mg PO HS PRN PRN Reason: Insomnia Last Admin: 07/20/18 22:03 Dose: 25 mg Divalproex Sodium (Depakote Dr(*Bid*)) 500 mg PO [facility]; Protocol Last Admin: 07/20/18 22:03 Dose: 500 mg Enoxaparin Sodium (Lovenox) 40 mg SC DAILY [facility]; Protocol Last Admin: 07/20/18 09:38 Dose: 40 mg Ibuprofen (Motrin Tab) 600 mg PO Q6H PRN PRN Reason: Pain, severe (8-10) Lidocaine (Lidoderm) 1 ea TD DAILY ELISABETH Last Admin: 07/20/18 09:39 Dose: 1 ea Lorazepam (Ativan) 1 mg PO Q4 PRN; Protocol PRN Reason: Anxiety Last Admin: 07/21/18 06:14 Dose: 1 mg Pantoprazole Sodium (Protonix Ec Tab) 40 mg PO 0600 ELISABETH Last Admin: 07/21/18 06:11 Dose: 40 mg Quetiapine Fumarate (Seroquel) 100 mg PO [facility]; Protocol - Labs Labs: 07/21/18 07:30 07/21/18 07:30
[2018-07-21] MEDS: Divalproex 500 mg DR(BID formulation) PO SCH (09:37)
[2018-07-21] MEDS: Lidocaine 5% Patch TD SCH (09:38)
[2018-07-21] MEDS: Enoxaparin 40 mg Syringe SC SCH (09:38)
[2018-07-21] MEDS ORDERED: Tmp-Smz 800 mg-160 mg DS Tab PO SCH (12:00)
--- NOTE | 2018-07-21 14:07 | CP.PCM.DIS ---
Provider - Provider Date of Admission: 07/17/18 15:10 Attending physician: Earnestine Gunn MD Consults: Dr. Dawson lAexander Time Spent in preparation of Discharge (in minutes): 45 Diagnosis - Discharge Diagnosis (1) Back pain Status: Acute (2) HIV (human immunodeficiency virus infection) Status: Acute Priority: High (3) Methamphetamine abuse Status: Acute Priority: High (4) Schizoaffective disorder Status: Acute Hospital Course - Lab Results Lab Results: Micro Results 07/17/18 12:00 Blood Blood Culture - Preliminary NO GROWTH AFTER 4 DAYS 07/17/18 11:30 Blood Blood Culture - Preliminary NO GROWTH AFTER 4 DAYS 07/17/18 14:48 Urine,Clean Catch Urine Culture - Final No Growth (<1,000 CFU/ML) Most Recent Lab Values WBC 3.4 10^3/uL (4.5-11.0) L 07/21/18 07:30 RBC 3.96 10^6/uL (3.5-6.1) 07/21/18 07:30 Hgb 10.8 g/dL (14.0-18.0) L 07/21/18 07:30 Hct 33.5 % (42.0-52.0) L 07/21/18 07:30 MCV 84.6 fl (80.0-105.0) 07/21/18 07:30 MCH 27.3 pg (25.0-35.0) 07/21/18 07:30 MCHC 32.2 g/dl (31.0-37.0) 07/21/18 07:30 RDW 15.2 % (11.5-14.5) H 07/21/18 07:30 Plt Count 178 10^3/uL (120.0-450.0) 07/21/18 07:30 MPV 11.3 fl (7.0-11.0) H 07/18/18 06:20 Gran % 61.1 % (50.0-68.0) 07/21/18 07:30 Lymph % (Auto) 28.4 % (22.0-35.0) 07/21/18 07:30 [place] % (Auto) 9.3 % (1.0-6.0) H 07/21/18 07:30 Eos % (Auto) 0.9 % (1.5-5.0) L 07/21/18 07:30 Baso % (Auto) 0.3 % (0.0-3.0) 07/21/18 07:30 Gran # 2.05 (1.4-6.5) 07/21/18 07:30 Lymph # (Auto) 1.0 (1.2-3.4) L 07/21/18 07:30 [place] # (Auto) 0.3 (0.1-0.6) 07/21/18 07:30 Eos # (Auto) 0.0 (0.0-0.7) 07/21/18 07:30 Baso # (Auto) 0.01 K/mm3 (0.0-2.0) 07/21/18 07:30 ESR 65 mm/hr (0.0-15.0) H 07/17/18 11: Retic Count 1.00 % (0.5-1.5) 07/17/18 11: pO2 48 mm/Hg (30-55) 07/17/18 12:02 VBG pH 7.26 (7.32-7.43) L 07/17/18 12:02 VBG pCO2 61.0 (40-60) H 07/17/18 12:02 VBG HCO3 27.4 mmol/l (21-28) 07/17/18 12:02 VBG Total CO2 29.3 mmol.L (22-28) H 07/17/18 12:02 VBG O2 Sat (Calc) 81.3 % (40-65) H 07/17/18 12:02 VBG Base Excess -1.0 mmol/L (0.0-2.0) L 07/17/18 12:02 VBG Potassium 4.2 mmol/L (3.6-5.2) 07/17/18 12:02 Sodium 140.0 mmol/L (132-148) 07/17/18 12:02 Chloride 108.0 mmol/L (98-107) H 07/17/18 12:02 Glucose 70 mg/dl (75-110) L 07/17/18 12:02 Lactate 0.8 mmol/L (0.7-2.1) 07/17/18 12:02 FiO2 21.0 % 07/17/18 12:02 Sodium 139 mmol/L (132-148) 07/21/18 07:30 Potassium 4.9 mmol/L (3.6-5.0) 07/21/18 07:30 Chloride 106 mmol/L (98-107) 07/21/18 07:30 Carbon Dioxide 29 mmol/L (21-33) 07/21/18 07:30 Anion Gap 9 (10-20) L 07/21/18 07:30 BUN 25 mg/dL (7-21) H 07/21/18 07:30 Creatinine 1.0 mg/dl (0.8-1.5) 07/21/18 07:30 Est GFR ( Amer) > 60 07/21/18 07:30 Est GFR (Non-Af Amer) > 60 07/21/18 07:30 Random Glucose 84 mg/dL (70-110) 07/21/18 07:30 Calcium 8.8 mg/dL (8.4-10.5) 07/21/18 07:30 Total Bilirubin 0.4 mg/dL (0.2-1.3) 07/21/18 07:30 AST 64 U/L (17-59) H 07/21/18 07:30 ALT 31 U/L (7-56) 07/21/18 07:30 Alkaline Phosphatase 104 U/L (38-126) 07/21/18 07:30 C-React Prot High Sens 1.33 mg/L (1.00-3.00) 07/18/18 06:20 NT-Pro-B Natriuret Pep 648 pg/mL (0-450) H 07/17/18 12:00 Total Protein 8.8 g/dL (5.8-8.3) H 07/21/18 07:30 Albumin 4.0 g/dL (3.0-4.8) 07/21/18 07:30 Globulin 4.7 gm/dL 07/21/18 07:30 Albumin/Globulin Ratio 0.8 (1.1-1.8) L 07/21/18 07:30 Venous Blood Potassium 4.2 mmol/L (3.6-5.2) 07/17/18 12:02 Urine Color Yellow (YELLOW) 07/17/18 14:48 Urine Appearance Clear (CLEAR) 07/17/18 14:48 Urine pH 6.0 (4.7-8.0) 07/17/18 14:48 Ur Specific [place] >= 1.030 (1.005-1.035) 07/17/18 14:48 Urine Protein 30 mg/dL (<30 mg/dL) H 07/17/18 14:48 Urine Glucose (UA) Negative mg/dL (NEGATIVE) 07/17/18 14:48 Urine Ketones Negative mg/dL (NEGATIVE) 07/17/18 14:48 Urine Blood Trace-intact (NEGATIVE) H 07/17/18 14:48 Urine Nitrate Negative (NEGATIVE) 07/17/18 14:48 Urine Bilirubin Negative (NEGATIVE) 07/17/18 14:48 Urine Urobilinogen 0.2 E.U./dL (<1 E.U./dL) 07/17/18 14:48 Ur Leukocyte Esterase Negative Julio/uL (NEGATIVE) 07/17/18 14:48 Urine RBC 0 - 2 /hpf (0-2) 07/17/18 14:48 Urine WBC 0 - 2 /hpf (0-6) 07/17/18 14:48 Ur Epithelial Cells None /hpf (0-5) 07/17/18 14:48 Amorphous Sediment Small 07/17/18 14:48 Urine Opiates Screen Negative (NEGATIVE) 07/17/18 14:48 Urine Methadone Screen Negative (NEGATIVE) 07/17/18 14:48 Ur Barbiturates Screen Negative (NEGATIVE) 07/17/18 14:48 Ur Phencyclidine Scrn Negative (NEGATIVE) 07/17/18 14:48 Ur Amphetamines Screen Positive (NEGATIVE) H 07/17/18 14:48 U Benzodiazepines Scrn Negative (NEGATIVE) 07/17/18 14:48 U Oth Cocaine Metabols Negative (NEGATIVE) 07/17/18 14:48 U Cannabinoids Screen Negative (NEGATIVE) 07/17/18 14:48 Absolute Lymphs (Flow) 872 Cells/mcL (850-3900) 07/18/18 07:18 % CD4 Cells 4 Percent (30-61) L 07/18/18 07:18 Absolute CD4 Count 34 Cells/mcL (490-1740) L 07/18/18 07:18 T-Help/Suppress Ratio 0.06 Ratio (0.86-5.00) L 07/18/18 07:18 % CD8 Cells 67 Percent (12-42) H 07/18/18 07:18 Absolute CD8 Count 586 Cells/mcL (180-1170) 07/18/18 07:18 Hepatitis A IgM Ab Negative (NEGATIVE) 07/18/18 06:20 Hep Bs Antigen Negative (NEGATIVE) 07/18/18 06:20 Hep B Core IgM Ab Negative (NEGATIVE) 07/18/18 06:20 Hepatitis C Antibody Negative (NEGATIVE) 07/18/18 06:20 - Hospital Course Hospital Course: On admission: Patient is a 38 with a history of HIV, sickle cell anemia, MVP, endocarditis, Aortic valve replacement in 2012, crystal meth IV drug abuse who presents with complaints of back pain which began this past Saturday. Describes pain as sharp, 10/10 non radiating, exacerbated with movements triggered by carrying his heavy clothes and objects through the city. Patient states he also has been having a sore throat for the past week for which he went to [place] two days ago for evaluation; as per patient he was prescribed azithromycin however has not noticed any improvements in his symptoms. Patient states his last CD4 count was 29 and his last time on HAART therapy consistently was between November- December this year but due to constantly moving [facility] he is unable to be compliant with his medications. Patient denies fevers, chills, cough, diarrhea, abdominal pain, nausea, vomiting, chest pain, dysuria. Hospital course: Patient had x-ray which showed no acute abnormalities. CT thoracic spine was negative for abnormalities. Retic count was 1.0 and hemoglobin/hematocrit was stable so less likely sicle cell crisis. Head CT was done for patient's headache, which revealed no acute abnormalities. Psychiatry was consulted. Patient was placed on seroquel and depakote regimen. Patient also had transaminitis, hepatitis [gracie was done which was negative. Transaminits resolved. ID was consulted for patient's HIV. Patient was given azithromycin. Repeat CD count was 34. Blood cultures were done d/t patient's history of endocarditis and IV drug abuse. Cultures were negative to date. Patient was medically optimized for discharge. Patient agreed to voluntary admission to the behavioral health unit at [facility]. Please refer to EMR for full details. - Date & Time of H&P Date of H&P: 07/17/18 Time of H&P: 15:55 Discharge Exam - Additional Findings Additional findings: - Constitutional Appears: Non-toxic, No Acute Distress - Head Exam Head Exam: ATRAUMATIC, NORMAL INSPECTION, NORMOCEPHALIC - Eye Exam Eye Exam: EOMI, Normal appearance - ENT Exam ENT Exam: Mucous Membranes Moist - Neck Exam Neck Exam: Full ROM - Respiratory Exam Respiratory Exam: Clear to Ausculation Bilateral, NORMAL BREATHING PATTERN. absent: Rhonchi, Wheezes - Cardiovascular Exam Cardiovascular Exam: REGULAR RHYTHM, +S1, +S2 - GI/Abdominal Exam GI & Abdominal Exam: Soft, Normal Bowel Sounds - Neurological Exam Neurological Exam: Alert, Awake, Oriented x3 - Psychiatric Exam Psychiatric exam: Normal Affect, Normal Mood - Skin Skin Exam: Normal Color, Warm Discharge Plan - Follow Up Plan Condition: GUARDED Disposition: DISCHARGE TO [facility] Patient education suggested?: Yes Instructions: Preventing Falls, Schizophrenia (DC), Suicide Prevention for Adults (DC), Back Pain (GEN) Additional Instructions: Please follow up with your primary care doctor within 3-5 days of discharge from the Behavioral Health Unit at [facility]. Please discuss any medical issues addressed during your admission. If you do not have a primary care doctor, please contact your insurance company to provide a list of in-network primary care doctors. Please follow up with your HIV clinic in [facility] as scheduled once you are discharged from the Behavioral Health Unit at [facility]. Discuss with them any new medications that you have been started on. Please comply with HAART treatment as ordered by your clinic as discussed. PLEASE CONTINUE ZITHROMAX AND BACTRIM DAILY UNTIL STOPPED BY A PHYSICIAN. Please take all previously prescribed and/or any new medications as prescribed by your doctor or pharmacist. If your symptoms return, please seek emergency medical attention immediately.
--- NOTE | 2018-07-21 14:54 | PN ---
DATE: 07/21/2018 SUBJECTIVE: The patient is 38-year-old male with reported history of schizophrenia, amphetamine use disorder. The patient has multiple medical issues including HIV. The patient has multiple psychiatric hospitalizations. Most recent was this month somewhere in [place]. The patient came to the emergency room here in [place] complaining of back pain. The patient was admitted on the medical side. Psych consult was called because the patient presented to be disorganized, with flight of ideas, paranoid. The patient initially was seen by Dr. Alexander yesterday. This administrative underwriter evaluated the patient. The patient presented to be disorganized, bizarre. The patient said as should be already but the patient denied that he wanted to kill himself or others. The patient presented to be paranoid, guarded, lying in dark, no eye contact. Yesterday, the patient refused to sign consent for voluntary admission, that is why screening by [facility] was initiated. [facility] screener evaluated the patient and during the interview the patient was willing to sign into the voluntary unit, that is why the patient stayed overnight on the medical side. Today the patient was seen and examined. The patient still disorganized, but calm. The patient willing to sign himself into the psychiatric inpatient unit. The patient is aware about medication Seroquel and Depakote. The patient said that he knows the structure of the unit and he had multiple hospitalizations in the past. The patient is currently on one to one for elopement risk, but the patient did not attempt to elope from the hospital. VITAL SIGNS: This administrative underwriter reviewed vital signs. Vital signs seems to be stable. Temperature 98.1, pulse is 85, blood pressure 124/85, respirations 18, oxygen saturation is 98. MEDICATIONS: Medications reviewed. The patient is on Benadryl, Depakote 500 mg twice a day. The patient is on Lovenox, Motrin, Lidoderm, Ativan 1 mg p.o. every 4 hours. as needed for anxiety. The patient got his dose today at the morning. The patient is on Protonix and Seroquel will be increased to 100 mg twice a day. LABORATORY DATA: Labs reviewed. WBC cells 3.4, granulocytes is 2.5. There is no signs of granulocytosis. Platelets count is 178, hemoglobin and hematocrit 10.8 and 33.5. Chemistry reviewed. Toxicology reviewed. The patient was positive for amphetamines. Urinalysis, blood trace. Immunology reviewed. Serology reviewed. MENTAL STATUS EXAM The patient presented to be alert, oddly related poor hygiene, intermittent eye contact. If there is eye contact, it is intense or the patient would not have eye contact at all. Mood described okay. Affect was flat. Thought process concrete and disorganized. Thought content, the patient denied hearing voices, denied seeing things, denied paranoid ideation, but the patient presented to be disorganized, responding to internal stimuli. The patient denied thoughts of harming himself or others, but was making hopeless statement such as I should be already, I am tired of living. Insight and judgment seems to be limited but improving. Impulses are better controlled. IMPRESSION: As per history, schizophrenia, amphetamine use disorder, rule out substance-induced psychosis. PLAN: The patient was willing to sign consent for treatment. The patient might benefit from admission. Seroquel was increased. Depakote was started. Collaterals should be obtained from the family. The patient was screened by [facility], but was not accepted because the patient was willing to sign himself into the psychiatric inpatient unit. The patient should be on one to one until transfer. Should you have any questions give me a call back. Thank you very much for letting me participate in care of your patient. Mary Frazier MD
[2018-07-21 15:05] VITALS: BP 126/72; PULSE 108; TEMP 98.4; O2SAT 99
--- NOTE | 2018-07-21 16:12 | CP.PCM.PN ---
Subjective - Date & Time of Evaluation Date of Evaluation: 07/21/18 Time of Evaluation: 13:30 - Subjective Subjective: Infectious Disease Follow Up: July 21, 2018 38 yo male with PMHx of HIV, sickle cell anemia, MVP, endocarditis, Aortic valve replacement in 2012, crystal meth IV drug abuse, and history of admissions for schizophrenia presenting with complaints of back pain which began this past Saturday. Describes pain as sharp, 10/10 non radiating, exacerbated with movements triggered by carrying his heavy clothes and objects through the city. Patient states he also has been having a sore throat for the past week for which he went to [place] two days ago for evaluation; as per patient he was prescribed azithromycin however has not noticed any improvements in his symptoms. Patient states his last CD4 count was 29 and his last time on HAART therapy consistently was between November-December this year but due to constantly moving from senior living to senior living he is unable to be compliant with his medications. Patient denies fevers, chills, cough, diarrhea, abdominal pain, nausea, vomiting, chest pain, dysuria. Patient with rapid flight of thoughts and uninhibited behavior. He has extreme difficulty maintaining a single line of thought. For inpatient psych. Objective - Vital Signs/Intake and Output Vital Signs (last 24 hours): Temp Pulse Resp BP Pulse Ox 98.4 F 108 H 18 126/72 99 07/21/18 14:00 07/21/18 14:00 07/21/18 14:00 07/21/18 14:00 07/21/18 14:00 Intake and Output: 07/21/18 07/21/18 06:59 18:59 Intake Total 800 Balance 800 - Labs Labs: 07/21/18 07:30 07/21/18 07:30 - Constitutional Appears: Non-toxic, No Acute Distress, Chronically Ill - Head Exam Head Exam: ATRAUMATIC, NORMOCEPHALIC - Eye Exam Eye Exam: EOMI, PERRL Pupil Exam: NORMAL ACCOMODATION, PERRL - ENT Exam ENT Exam: Mucous Membranes Moist, Normal External Ear Exam, TM's Normal Bilaterally - Neck Exam Neck Exam: Full ROM, Normal Inspection - Respiratory Exam Respiratory Exam: Clear to Ausculation Bilateral, NORMAL BREATHING PATTERN. abs ent: Rales, Rhonchi, Wheezes - Cardiovascular Exam Cardiovascular Exam: REGULAR RHYTHM, RRR, +S1, +S2 - GI/Abdominal Exam GI & Abdominal Exam: Soft, Normal Bowel Sounds. absent: Distended, Tenderness - Extremities Exam Extremities Exam: Full ROM, Normal Inspection - Neurological Exam Neurological Exam: Alert, Awake, CN II-XII Intact, Oriented x3 - Psychiatric Exam Additional comments: manic, rapid flight of thoughts. - Skin Skin Exam: Intact, Normal Color Assessment and Plan - Assessment and Plan (Free Text) Assessment: 38 yo male with HIV with likely AIDS classification with sore throat presenting with low back pains. History of Crystal Meth abuse (still actively using), Sickle Cell Anemia, Mitral Valve Prolapse, history of endocarditis, Aortic Valve replacement in 2012. No fevers. Leukopenia. Currently with transaminitis. Recheck Hepatitis workup. Supportive care. Patient with flight of thoughts, manic, and uninhibited behavior. Patient needs set up with outpatient HIV clinic in [facility]. To my understanding, the [place]. Limited options for care of the [place]. For inpatient psych. Thank you for allowing me to participate in the care of this patient, we will follow with you.
== END 2018-07-21 15:21 ==
LOC: ED 10:45 → ERH 15:10 → 5RNO 16:15
PROVIDERS: ADMIT Internal Medicine; ATTEND Internal Medicine
DX: M54.9 Dorsalgia, unspecified (principal); B20 Human immunodeficiency virus [HIV] disease; F25.9 Schizoaffective disorder, unspecified; D57.1 Sickle-cell disease without crisis; I10 Essential (primary) hypertension; G40.909 Epilepsy, unspecified, not intractable, without status epilepticus; F15.259 Other stimulant dependence with stimulant-induced psychotic disorder, unspecified; F41.9 Anxiety disorder, unspecified; I34.1 Nonrheumatic mitral (valve) prolapse; Z59.0 Homelessness; Z91.14 Patient's other noncompliance with medication regimen; Z91.19 Patient's noncompliance with other medical treatment and regimen; Z95.2 Presence of prosthetic heart valve

== ENCOUNTER 2018-07-21 15:19 | Inpatient (IN) | payer MEDICAID ==
[2018-07-21] MEDS ORDERED: Magnesium Hydroxide Susp 30 ml UD PO PRN (16:14)
[2018-07-21] MEDS ORDERED: Alum-Mag Hydrox-Simethicone Susp (30 mL) PO PRN (16:14)
[2018-07-21] MEDS ORDERED: DiphenhydrAMINE 50 mg/ml Inj IM PRN (17:12)
--- NOTE | 2018-07-21 18:26 | PCM.BM ---
<Doug Brown - Last Filed: 07/21/18 18:23> Treatment Plan Problems - Problems identified on initial assessmt Altered thought process Date Initiated: 07/21/18 Time Initiated: 17:00 Assessment reference: NA Status: Active Priority: 1 Impaired communication Date Initiated: 07/21/18 Time Initiated: 17:00 Assessment reference: NA Status: Active Priority: 2 Anxiety related to substance use Assessment reference: NA Status: Active Priority: 3 Ineffective Coping Date Initiated: 07/21/18 Time Initiated: 17:00 Assessment reference: NA Status: Active Priority: 4 Ineffective family coping Date Initiated: 07/21/18 Time Initiated: 17:00 Assessment reference: NA Status: Active Priority: 5 Treatment assets and liabiliti Patient Assests: adapts well, cooperative, self-reliant, ADL independent, negotiates basic needs, cognitively intact Patient Liabilities: substance abuse, medical problems - Milieu Protocol Maintain good personal hygiene: daily Encourage regular showers, daily Remind patient to perform daily oral care, daily Assist patient to perform ADL's Conduct patient checks and document Observation sheet: Q15 minutes Maintain personal safety: every shift Educate patient to report safety concerns to staff, every shift Monitor environment for contraband/sharps Medication safety: Monitor for expected outcome, potential side effects: every shift, Assess barriers to learning: every shift, Assess readiness for medication education: every shift Family Contact - Goals for Treatment [facility]/Contin[facility] Care - Education Needs Education Needs: Patient Medication, Patient Diagnosis/Disease Process, Patient Coping Skills, Patient Anger Management skills, Patient Placement options, Patient Community resources, Patient Activities of Daily Living, Patient Nutrition, Patient Health Practices/Safety, Patient Personal Hygiene/Grooming, Patient Aftercare Safety Plan - Discharge Discharge Criteria: Tolerates medication w/o severe side effects, Normal sleep pattern, Ability to care for self, No longer exhibiting s/s of withdrawal, Reduction of target symptoms <Mary Frazier - Last Filed: 07/23/18 14:03> - Diagnosis (1) Methamphetamine abuse Status: Acute Interventions: 07/23/18 14:03 Maintaining sobriety Relapse prevention Possible rehabilitation Motivational interviewing 12-step programs: AA meetings (2) Schizoaffective disorder Status: Acute Interventions: 07/23/18 14:03 Psychoeducation/psychotherapy Psychopharmacology/adjustment of medications as needed/ monitoring possible side effects Evaluate pt on daily basis Compliance with medications and follow up appointments Long acting medication if pt is noncompliant with pill form Suicide and homicide risk assessment and prevention, coping strategies, safety plan Relapse prevention Reduction of symptoms Improve functional status Possible assertive community treatment Cognitive behavioral therapy Family involvement Possible social skill training as outpatient <Yoanna Salamanca - Last Filed: 07/23/18 16:32>
[2018-07-21] MEDS: Divalproex 500 mg DR(BID formulation) PO SCH (21:10)
--- NOTE | 2018-07-22 06:18 | CP.PCM.PN ---
Subjective - Date & Time of Evaluation Date of Evaluation: 07/22/18 Time of Evaluation: 06:18 - Subjective Subjective: Resident Progress Note for Hospitalist Service Objective - Vital Signs/Intake and Output Vital Signs (last 24 hours): Temp Pulse Resp BP Pulse Ox 98.5 F 110 H 18 118/75 07/21/18 15:20 07/21/18 15:30 07/21/18 15:30 07/21/18 15:20 - Medications Medications: Current Medications Acetaminophen (Tylenol 325mg Tab) 650 mg PO Q6H PRN PRN Reason: Pain, moderate (4-7) Al Hydrox/Mg Hydrox/Simethicone (Maalox Plus 30 Ml) 30 ml PO DAILY PRN PRN Reason: Indigestion / Heartburn Azithromycin (Zithromax) 500 mg PO DAILY ELISABETH; Protocol Diphenhydramine HCl (Benadryl) 25 mg PO HS PRN PRN Reason: Insomnia Diphenhydramine HCl (Benadryl) 50 mg IM Q6H PRN PRN Reason: Severe Agitation Diphenhydramine HCl (Benadryl) 50 mg PO Q6H PRN PRN Reason: Agitation Last Admin: 07/21/18 21:10 Dose: 50 mg Divalproex Sodium (Depakote Dr(*Bid*)) 500 mg PO [facility]; Protocol Last Admin: 07/21/18 21:10 Dose: 500 mg Haloperidol (Haldol) 5 mg PO Q6H PRN; Protocol PRN Reason: Agitation Last Admin: 07/22/18 03:10 Dose: 5 mg Haloperidol Lactate (Haldol) 5 mg IM Q6H PRN; Protocol PRN Reason: Severe Agitation Ibuprofen (Motrin Tab) 600 mg PO Q6H PRN PRN Reason: Pain (8-10), fever Last Admin: 07/21/18 21:09 Dose: 600 mg Lidocaine (Lidoderm) 1 ea TD DAILY EL[facility]ETH Lorazepam (Ativan) 1 mg PO Q4H PRN; Protocol PRN Reason: Anxiety Last Admin: 07/22/18 03:12 Dose: 1 mg Lorazepam (Ativan) 2 mg IM Q6H PRN; Protocol PRN Reason: Severe Agitation Lorazepam (Ativan) 2 mg PO Q6H PRN; Protocol PRN Reason: Agitation Magnesium Hydroxide (Milk Of Magnesia) 30 ml PO DAILY PRN PRN Reason: Constipation Pantoprazole Sodium (Protonix Ec Tab) 40 mg PO 0600 EL[facility]ABETH Quetiapine Fumarate (Seroquel) 150 mg PO [facility]; Protocol Last Admin: 07/21/18 21:10 Dose: 150 mg Trimethoprim/Sulfamethoxazole (Bactrim Ds Tab) 1 tab PO DAILY EL[facility]ABETH; Protocol
[2018-07-22] MEDS: Pantoprazole 40 mg EC Tab PO SCH (06:25)
[2018-07-22 08:00] LABS: GLUCOSE,FASTING 80 mg/dL (65-110); HDL CHOLESTEROL 39 mg/dL (29-60)
[2018-07-22 08:11] LABS: LDL CHOLESTEROL 101 mg/dL (0-129)
[2018-07-22] MEDS: Lidocaine 5% Patch TD SCH (08:47)
[2018-07-22] MEDS: Tmp-Smz 800 mg-160 mg DS Tab PO SCH (08:49)
[2018-07-22] MEDS: Divalproex 500 mg DR(BID formulation) PO SCH ×2 (09:32→21:14)
--- NOTE | 2018-07-22 12:20 | CP.PCM.CON ---
<Christi Rico - Last Filed: 07/22/18 12:27> History of Present Illness - History of Present Illness History of Present Illness: Resident Consult Note for Hospitalist Service Patient is a 38 with a history of HIV, sickle cell anemia, MVP, endocarditis, Aortic valve replacement in 2012, crystal meth IV drug abuse who presents with complaints of back pain which began this past Saturday. Describes pain as sharp, 10/10 non radiating, exacerbated with movements triggered by carrying his heavy clothes and objects [place] the city. Patient states he also has been having a sore throat for the past week for which he went to [facility] two days ago for evaluation; as per patient he was prescribed azithromycin however has not noticed any improvements in his symptoms. Patient states his last CD4 count was 29 and his last time on HAART therapy consistently was between November-December this year but due to constantly moving [facility] he is unable to be compliant with his medications. Patient denies fevers, chills, cough, diarrhea, abdominal pain, nausea, vomiting, chest pain, dysuria. 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, denies tobacco use, admits to occasional alcohol use (4 lokos every 5 months or so), admits to IV drug abuse (crystal meth for which patient says he pays for with his own money from his previous job as a teacher) Family hx: non-pertinent Review of Systems - Review of Systems All systems: reviewed and no additional remarkable complaints except (stated in HPI) Past Patient History - Infectious Disease Hx of Infectious Diseases: None - Tetanus Immunizations Tetanus Immunization: Unknown - Past Medical History & Family History Past Medical History?: Yes - Past Social History Smoking Status: Never Smoked - CARDIAC Hx Hypertension: Yes Hx Mitral Valve Prolapse: (mv regurgitation) - PULMONARY Hx Respiratory Disorders: No - NEUROLOGICAL Hx Seizures: Yes - HEENT Hx HEENT Problems: No - RENAL Hx Chronic Kidney Disease: No - ENDOCRINE/METABOLIC Hx Endocrine Disorders: No - HEMATOLOGICAL/ONCOLOGICAL Hx Anemia: Yes Hx Sickle Cell Disease: Yes - INTEGUMENTARY Hx Dermatological Problems: No - MUSCULOSKELETAL/RHEUMATOLOGICAL Hx Musculoskeletal Disorders: No Hx Falls: No - GASTROINTESTINAL Hx Gastrointestinal Disorders: No - GENITOURINARY/GYNECOLOGICAL Hx Sexually Transmitted Disorders: Yes - PSYCHIATRIC Hx Anxiety: Yes Hx Bipolar Disorder: Yes Hx Depression: Yes Hx Schizophrenia: Yes Hx Substance Use: Yes - SURGICAL HISTORY Hx Orthopedic Surgery: Yes (Bunionectomy) Hx Valve Replacement: Yes (AORTIC VALVE REPLACEMENT) Other/Comment: aortic valve replacement 2013/mitral valve repair - ANESTHESIA Hx Anesthesia: Yes Hx Anesthesia Reactions: No Hx Malignant Hyperthermia: No Meds Allergies/Adverse Reactions: Allergies Allergy/AdvReac Type Severity Reaction Status Date / Time aripiprazole [From Abilify] Allergy URTICARIA Verified 07/21/18 18:12 mirtazapine [From Remeron] Allergy CONGESTION Verified 07/21/18 18:12 - Medications Medications: Current Medications Acetaminophen (Tylenol 325mg Tab) 650 mg PO Q6H PRN PRN Reason: Pain, moderate (4-7) Al Hydrox/Mg Hydrox/Simethicone (Maalox Plus 30 Ml) 30 ml PO DAILY PRN PRN Reason: Indigestion / Heartburn Azithromycin (Zithromax) 500 mg PO DAILY ELISABETH; Protocol Last Admin: 07/22/18 08:49 Dose: 500 mg Diphenhydramine HCl (Benadryl) 25 mg PO HS PRN PRN Reason: Insomnia Diphenhydramine HCl (Benadryl) 50 mg IM Q6H PRN PRN Reason: Severe Agitation Diphenhydramine HCl (Benadryl) 50 mg PO Q6H PRN PRN Reason: Agitation Last Admin: 07/21/18 21:10 Dose: 50 mg Divalproex Sodium (Depakote Dr(*Bid*)) 500 mg PO [facility]; Protocol Last Admin: 07/22/18 09:32 Dose: 500 mg Haloperidol (Haldol) 5 mg PO Q6H PRN; Protocol PRN Reason: Agitation Last Admin: 07/22/18 03:10 Dose: 5 mg Haloperidol Lactate (Haldol) 5 mg IM Q6H PRN; Protocol PRN Reason: Severe Agitation Ibuprofen (Motrin Tab) 600 mg PO Q6H PRN PRN Reason: Pain (8-10), fever Last Admin: 07/21/18 21:09 Dose: 600 mg Lidocaine (Lidoderm) 1 ea TD DAILY ELISABETH Last Admin: 07/22/18 08:47 Dose: 1 ea Lorazepam (Ativan) 1 mg PO Q4H PRN; Protocol PRN Reason: Anxiety Last Admin: 07/22/18 11:05 Dose: 1 mg Lorazepam (Ativan) 2 mg IM Q6H PRN; Protocol PRN Reason: Severe Agitation Lorazepam (Ativan) 2 mg PO Q6H PRN; Protocol PRN Reason: Agitation Magnesium Hydroxide (Milk Of Magnesia) 30 ml PO DAILY PRN PRN Reason: Constipation Pantoprazole Sodium (Protonix Ec Tab) 40 mg PO 0600 ELISABETH Last Admin: 07/22/18 06:25 Dose: 40 mg Quetiapine Fumarate (Seroquel) 150 mg PO [facility]; Protocol Last Admin: 07/22/18 09:33 Dose: 150 mg Trimethoprim/Sulfamethoxazole (Bactrim Ds Tab) 1 tab PO DAILY ELISABETH; Protocol Last Admin: 07/22/18 08:49 Dose: 1 tab Physical Exam - Additional Findings Additional findings: - Constitutional Appears: Non-toxic, No Acute Distress - Head Exam Head Exam: ATRAUMATIC, NORMAL INSPECTION, NORMOCEPHALIC - Eye Exam Eye Exam: EOMI, Normal appearance - ENT Exam ENT Exam: Mucous Membranes Moist - Neck Exam Neck Exam: Full ROM - Respiratory Exam Respiratory Exam: Clear to Ausculation Bilateral, NORMAL BREATHING PATTERN. absent: Rhonchi, Wheezes - Cardiovascular Exam Cardiovascular Exam: REGULAR RHYTHM, +S1, +S2 - GI/Abdominal Exam GI & Abdominal Exam: Soft, Normal Bowel Sounds - Neurological Exam Neurological Exam: Alert, Awake, Oriented x3 - Psychiatric Exam Psychiatric exam: Normal Affect, Normal Mood - Skin Skin Exam: Normal Color, Warm Results - Vital Signs Recent Vital Signs: Last Vital Signs Temp 98.5 F 07/21/18 15:20 Pulse 110 H 07/21/18 15:30 Resp 18 07/21/18 15:30 BP 118/75 07/21/18 15:20 Pulse Ox - Labs Labs: Laboratory Results - last 24 hr 07/22/18 07/22/18 07/22/18 07:30 07:30 07:30 Fasting Glucose 80 Triglycerides 84 Cholesterol 156 LDL Cholesterol Direct 101 HDL Cholesterol 39 TSH 3rd Generation 0.54 Valproic Acid 44 L Assessment & Plan - Assessment and Plan (Free Text) Assessment: 38 with a history of HIV, sickle cell anemia, MVP, endocarditis, Aortic valve replacement in 2012, crystal meth IV drug abuse who presents with complaints of back pain with CT spine negative for abscess. Patient continues to exhibit patterns of psychosis with tangential speech and disorganized thought process. Patient is medically optimized and discharged to behavioral health unit at [facility] Plan: Back pain - Etiology: spinal abscess vs. sickle cell crisis vs. chronic back pain - ESR elevated, CRP normal Blood and urine cultures show no growth; therefore pain most likely not of infectious etiology - X-ray imaging of thoracic and lumbar spine show no acute abnormalities. CT thoracic spine negative for abnormalities - Retic count 1.0 and H/H stable less likely sickle cell crisis Headache - ID on consult; will discuss starting prophylactic meds - CT head reveal no acute abnormalities Psychosis - Patient continues to have flight of ideas, racing thoughts however this has improved since day of admission - Psychiatry consulted, Dr. Alexander/Dr. Hernnadez - Continue with management as per psychiatry team Sore throat - Continue with azithromycin Transaminitis - Hepatitis panel negative - LFT levels continue to improve Hx of sickle cell anemia -H/H stable -Retic count 1.0 on admission Hx of HIV - ID on consult. Recs appreciated - Repeat CD4 count 34; prophylaxis therapy Hx of drug abuse - Counseled on drug abuse and cessation - Continue to monitor for acute behavioral and lab changes Hx of aortic valve replacement/endocarditis/IV drug abuse - Blood cultures are negative - As of now patient remains afebrile without leukocytosis Disposition: Patient is medically optimized for discharge to behavioral health unit. Medicine team will sign off at this time. Thank you for this opportunity. Please reconsult as necessary. Patient case and plan discussed with attending, Dr. Luis A Rico PGY-1 - Date & Time Date: 07/22/18 Time: 07:30 <Earnestine Gunn - Last Filed: 07/23/18 15:13> Meds - Medications Medications: Current Medications Acetaminophen (Tylenol 325mg Tab) 650 mg PO Q6H PRN PRN Reason: Pain, moderate (4-7) Al Hydrox/Mg Hydrox/Simethicone (Maalox Plus 30 Ml) 30 ml PO DAILY PRN PRN Reason: Indigestion / Heartburn Azithromycin (Zithromax) 500 mg PO DAILY ELISABETH; Protocol Last Admin: 07/23/18 10:52 Dose: Not Given Diphenhydramine HCl (Benadryl) 25 mg PO HS PRN PRN Reason: Insomnia Diphenhydramine HCl (Benadryl) 50 mg IM Q6H PRN PRN Reason: Severe Agitation Diphenhydramine HCl (Benadryl) 50 mg PO Q6H PRN PRN Reason: Agitation Last Admin: 07/22/18 21:14 Dose: 50 mg Divalproex Sodium (Depakote Dr(*Bid*)) 500 mg PO [facility]; Protocol Last Admin: 07/23/18 09:57 Dose: 500 mg Haloperidol (Haldol) 5 mg PO Q6H PRN; Protocol PRN Reason: Agitation Last Admin: 07/23/18 01:43 Dose: 5 mg Haloperidol Lactate (Haldol) 5 mg IM Q6H PRN; Protocol PRN Reason: Severe Agitation Ibuprofen (Motrin Tab) 600 mg PO Q6H PRN PRN Reason: Pain (8-10), fever Last Admin: 07/21/18 21:09 Dose: 600 mg Lidocaine (Lidoderm) 1 ea TD DAILY ELISABETH Last Admin: 07/23/18 08:31 Dose: 1 ea Lorazepam (Ativan) 1 mg PO Q4H PRN; Protocol PRN Reason: Anxiety Last Admin: 07/22/18 11:05 Dose: 1 mg Lorazepam (Ativan) 2 mg IM Q6H PRN; Protocol PRN Reason: Severe Agitation Lorazepam (Ativan) 2 mg PO Q6H PRN; Protocol PRN Reason: Agitation Last Admin: 07/23/18 01:43 Dose: 2 mg Magnesium Hydroxide (Milk Of Magnesia) 30 ml PO DAILY PRN PRN Reason: Constipation Pantoprazole Sodium (Protonix Ec Tab) 40 mg PO 0600 ELISABETH Last Admin: 07/23/18 06:50 Dose: 40 mg Quetiapine Fumarate (Seroquel) 150 mg PO [facility]; Protocol Last Admin: 07/23/18 09:57 Dose: 150 mg Trimethoprim/Sulfamethoxazole (Bactrim Ds Tab) 1 tab PO DAILY [facility]; Protocol Last Admin: 07/23/18 10:52 Dose: Not Given Results - Vital Signs Recent Vital Signs: Last Vital Signs Temp 98.1 F 07/23/18 07:17 Pulse 82 07/23/18 07:17 Resp 20 07/23/18 07:17 BP 101/58 L 07/23/18 07:17 Pulse Ox - Labs Labs: Laboratory Results - last 24 hr 07/22/18 07:30 RPR Nonreactive Attending/Attestation - Attestation I have personally seen and examined this patient.: Yes I have fully participated in the care of the patient.: Yes I have reviewed all pertinent clinical information: Yes Notes (Text): 07/23/18 15:10 Medical record note made by the resident after discussion with my direction and input after the patient was personally seen and examined by me. I have reviewed the chart and agree that the record accurately reflects by personal performance of the history, physical exam, data review, and medical decision-making, in the course for the patient. I have also personally directed the plan of care. 38 year old homeless male with past medical history of HIV, sickle cell anemia, MVP, AVR (2012), endocarditis, substance abuse including IVDA and psychiatric was initially admitted to medical floor with complaint of back pain. Xray thoracic/lumbar spine were negative. ESR was elevated but CRP was normal. CT spine was negative for abscess. ID evaluation was appreciated for HIV. Recommended outpatient follow up in HIV clinic. Patient is on PJP and IMTIAZ Prophphlaxis. Importance of compliance was discussed with patient. LFTs are improving. Hepatitis panel was negative. Patient was counselled on medication and outpatient follow up compliance. Patient was counselled on risks of continued substance abuse. There is no active medical issue at this time.We will sign off. Please call us back if any question.
--- NOTE | 2018-07-22 14:15 | PCM.PSYCH ---
Initial Psychiatric Evaluation - Initial Psychiatric Evaluation Type of Admission: Voluntary Legal Status: Capacity (patient had capacity to sign soncent for treatment) Chief Complaint (in patient's own words): "I am feeling fine, I want to go home and reestablish accesses....." Patient's Reaction to Hospitalization: Patient was transferred from medical floor ffor evaluation and stabilization disorganized thoughts and disorganized behavior. History of Present Illness and Precipitating Events: Patient is a 38 years old -Iranian male currently unemployed, multiple psychiatric admissions in the past, most recent was in [facility] in 2016 in November and February, pt has h/o psychosis, r/o schizophrenia, ?bipolar disorder, h/o stimulant use disorder (methamphetamines and crystal Meth), h/o multiple medical issues including (as per [facility] report) seizure disorder, h/o HIV, AIDS, chronic back pain, sickle cell anemia, History of Aortic valvular regurgitation status post valve surgery, pt reported living in [place], on the medical site pt was refusing to sign himself into the psychiatric unit, was screened by [facility], but during the interview with the screener in order to avoid involuntary commitment pt said that he is willing to get treatment, pt was transferred to the psychiatric inpatient unit in [place], transfer was uneventful. Within less than an our pt submitted 48 hr notice requesting discharge. while pt was on the medical floor, pt was exposing himself towards staff, presented to be psychotic. pt was seen today at the [facility] area, pt presented to be disorganized, but not agitated, pt's thought process seems to be circumstantial and tangential but pt was trying his best to preset well. pt had poor personal hygiene, good ADLs. pt said that the goal of his admission is "to establish the access", when was asked what pt means pt said he wants to reestablish services in [place]. pt also wants to managing family relationships. pt's statements were not related to the questions being asked, pt went tangents about the services in [place], pt said that he needs to have housing, "and of course I need to take my medications". of note pt was not compliant with his HIV medications. pt presented to be disorganized and internally preoccupied. Patient reported history of abusing and injecting crystal meth, in the past. UDS was positive for amphetamines, denied smoking. Past psychiatric history as per [facility]: History of multiple inpatient psychiatric hospitalizations in the past, last discharged 2015. h/o noncompliance with follow-up with outpatient clinic, last follow-up unknown Patient denied any history of suicidal ideation or attempt in the past Patient denied any history of homicidal ideation or attempt the past Patient denied any legal charges Patient denied any auditory or visual hallucination the past pt was on the following meds in the past: Keppra 500 mg PO BID Haloperidol 10 mg PO BID Benztropine 1 mg PO BID Efavirenz/Emtricitabine/Teno [Atripla 600 MG-200 MG-300 MG] 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 Aortic valvular regurgitation History of AIDS Past medical history History of seizure disorder History of Sickle cell anemia History of Aortic valvular regurgitation status post valve surgery History of AIDS pt was admitted to the medical site for back pain Social history Patient currently living alone and unemployed 1 tab PO DAILY #30 tab Lab Results 07/22/18 07:30: TSH 3rd Generation 0.54 07/22/18 07:30: Fasting Glucose 80, Triglycerides 84, Cholesterol 156, LDL Cholesterol Direct 101, HDL Cholesterol 39 07/22/18 07:30: Valproic Acid 44 L Vital Signs Temp Pulse Pulse Resp BP 07/21/18 15:30 110 H 18 07/21/18 15:20 98.5 F 110 H 18 118/75 The patient failed the outpatient lower level of care: Yes Current Medications: Active Medications Generic Name Dose Route Start Last Admin Trade Name Freq PRN Reason Stop Dose Admin Acetaminophen 650 mg 07/21/18 16:14 Tylenol 325mg Tab PO Q6H PRN Pain, moderate (4-7) Al Hydrox/Mg Hydrox/Simethicone 30 ml 07/21/18 16:14 Maalox Plus 30 Ml PO DAILY PRN Indigestion / Heartburn Azithromycin 500 mg 07/22/18 08:00 07/22/18 08:49 Zithromax PO 500 mg DAILY ELISABETH Administration Protocol Diphenhydramine HCl 25 mg 07/21/18 16:47 Benadryl PO HS PRN Insomnia Diphenhydramine HCl 50 mg 07/21/18 17:12 Benadryl IM Q6H PRN Severe Agitation Diphenhydramine HCl 50 mg 07/21/18 17:13 07/21/18 21:10 Benadryl PO 50 mg Q6H PRN Administration Agitation Divalproex Sodium 500 mg 07/21/18 22:00 07/22/18 09:32 Virgil Morrow(*Bid*) PO 500 mg [facility] ELISABETH Administration Protocol Haloperidol 5 mg 07/21/18 17:01 07/22/18 03:10 Haldol PO 5 mg Q6H PRN Administration Agitation Protocol Haloperidol Lactate 5 mg 07/21/18 17:01 Haldol IM Q6H PRN Severe Agitation Protocol Ibuprofen 600 mg 07/21/18 16:33 07/21/18 21:09 Motrin Tab PO 600 mg Q6H PRN Administration Pain (8-10), fever Lidocaine 1 ea 07/22/18 08:00 07/22/18 08:47 Lidoderm TD 1 ea DAILY ELISABETH Administration Lorazepam 1 mg 07/21/18 16:22 07/22/18 11:05 Ativan PO 1 mg Q4H PRN Administration Anxiety Protocol Lorazepam 2 mg 07/21/18 17:03 Ativan IM Q6H PRN Severe Agitation Protocol Lorazepam 2 mg 07/21/18 17:08 Ativan PO Q6H PRN Agitation Protocol Magnesium Hydroxide 30 ml 07/21/18 16:14 Milk Of Magnesia PO DAILY PRN Constipation Pantoprazole Sodium 40 mg 07/22/18 06:00 07/22/18 06:25 Protonix Ec Tab PO 40 mg 0600 ELISABETH Administration Quetiapine Fumarate 150 mg 07/21/18 22:00 07/22/18 09:33 Seroquel PO 150 mg [facility] ELISABETH Administration Protocol Trimethoprim/Sulfamethoxazole 1 tab 07/22/18 08:00 07/22/18 08:49 Bactrim Ds Tab PO 1 tab DAILY ELISABETH Administration Protocol Present on Admission - Present on Admission Any Indicators Present on Admission: No Review of Systems - Review of Systems Systems not reviewed;Unavailable: Acuity of Condition - Constitutional Constitutional: As Per HPI - EENT Eyes: As Per HPI Ears: As Per HPI Nose/Mouth/Throat: As Per HPI - Cardiovascular Cardiovascular: As Per HPI - Respiratory Respiratory: As Per HPI - Gastrointestinal Gastrointestinal: As Per HPI - Genitourinary Genitourinary: As Per HPI - Reproductive: Male Reproductive:Male: As Per HPI - Musculoskeletal Musculoskeletal: As Per HPI - Integumentary Integumentary: As Per HPI - Neurological Neurological: As Per HPI - Psychiatric Psychiatric: As Per HPI - Endocrine Endocrine: As Per HPI - Hematologic/Lymphatic Hematologic: As Per HPI Past Patient History - Past Psychiatric History Previous Treatment History: Inpatient Prior Professional Help: as per HPI Prior Psychiatric Treatment: as per HPI At [facility]: as per HPI Duration: as per HPI Nature of Treatment: as per HPI Explanation of prior treatment: as per HPI - PSYCHIATRIC Hx Anxiety: Yes Hx Bipolar Disorder: Yes Hx Depression: Yes Hx Schizophrenia: Yes Hx Substance Use: Yes - Infectious Disease Hx of Infectious Diseases: None - Tetanus Immunizations Tetanus Immunization: Unknown - Past Medical History & Family History Past Medical History?: Yes - CARDIAC Hx Hypertension: Yes Hx Mitral Valve Prolapse: (mv regurgitation) - PULMONARY Hx Respiratory Disorders: No - NEUROLOGICAL Hx Seizures: Yes - HEENT Hx HEENT Problems: No - RENAL Hx Chronic Kidney Disease: No - ENDOCRINE/METABOLIC Hx Endocrine Disorders: No - HEMATOLOGICAL/ONCOLOGICAL Hx Anemia: Yes Hx Sickle Cell Disease: Yes - INTEGUMENTARY Hx Dermatological Problems: No - MUSCULOSKELETAL/RHEUMATOLOGICAL Hx Musculoskeletal Disorders: No Hx Falls: No - GASTROINTESTINAL Hx Gastrointestinal Disorders: No - GENITOURINARY/GYNECOLOGICAL Hx Sexually Transmitted Disorders: Yes - SURGICAL HISTORY Hx Orthopedic Surgery: Yes (Bunionectomy) Hx Valve Replacement: Yes (AORTIC VALVE REPLACEMENT) Other/Comment: aortic valve replacement 2013/mitral valve repair - ANESTHESIA Hx Anesthesia: Yes Hx Anesthesia Reactions: No Hx Malignant Hyperthermia: No Meds Allergies/Adverse Reactions: Allergies Allergy/AdvReac Type Severity Reaction Status Date / Time aripiprazole [From Abilify] Allergy URTICARIA Verified 07/21/18 18:12 mirtazapine [From Remeron] Allergy CONGESTION Verified 07/21/18 18:12 Mental Status Examination - Personal Presentation Personal Presentation: Looks stated age - Affect Affect: Flat - Motor Activity Motor Activity: Calm - Reliability in Providing Information Reliability in Providing Information: Poor, due to alteration in thoughts - Speech Speech: Disorganized - Mood Mood: Neutral - Formal Thought Process Formal Thought Process: Other (pt denied any psychotic symptoms, but presented to be disorganized) - Obsessions/Compulsions Obsessions: None Compulsions: None - Cognitive Functions Orientation: Person, Place, Situation Sensorium: Alert Attention/Concentration: Easily distracted Abstract Thinking: [place] Estimate of Intelligence: Average Judgement: Intact, as evidence by: Insight regarding need for hospitalization - Risk Risk: Diminished functioning - Strength & Assets Inventory Strength & Assets Inventory: Cooperative - Limitations Limitations: Other (multiple medical issues, noncompliance with meds, substance use) Psychiatric Physical Exam - Physical Exam Reviewed and confirmed: Emergency Department Physical Exam Results - Vital Signs Recent Vital Signs: Last Vital Signs Temp 98.5 F 07/21/18 15:20 Pulse 110 H 07/21/18 15:30 Resp 18 07/21/18 15:30 BP 118/75 07/21/18 15:20 Pulse Ox - Labs Labs: Laboratory Results - last 24 hr 07/22/18 07/22/18 07/22/18 07:30 07:30 07:30 Fasting Glucose 80 Triglycerides 84 Cholesterol 156 LDL Cholesterol Direct 101 HDL Cholesterol 39 TSH 3rd Generation 0.54 Valproic Acid 44 L - EKG Data EKG Interpreted by: ER Physician Rate: Normal DSM Plan - DSM 5 DSM 5 Diagnosis: as per h/o: Bipolar 1 disorder most recent episode mixed severe with psychotic features Methamphetamine use disorder moderate History of seizure disorder 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 Aortic valvular regurgitation History of AIDS - Recommended/Plan of Treatment Treatment Recommendations and Plan of Treatment: Milieu/structure/supportive therapy Medical consult/ID consult SW consultation for discharge plan and social issues Med management seroquel 150mg po amhs for psychosis depakote 500mg po bid for mood stabilization and ?seizures Family involvement Follow up on labs Will monitor closely Pt was educated about risk/benefits and alternatives of medications, coping strategies (safety plan, suicide prevention), relapse prevention, importance of follow up with psychiatrist and therapist, stay away from drugs/alcohol/smoking Projected ELOS: 7days Prognosis: guarded - Tobacco Cessation Tobacco Use Status for the last 30 days: Non User Tobacco Use Treatment Practical Counseling Provided: No Tobacco Use Treatment FDA-Approved Cessation Medication Provided: No - Alcohol or Substance Abuse Does the patient have an Alcohol or Substance Abuse Disorder: Yes Initial Psych Certification - Initial Certification I certify that the inpatient psychiatric facility admission was medically necessary for either: Treatment which could reasonbly be expected to improve pt's condition, Diagnostic study I estimate of hospitalization is necessary for proper treatment of the patient: 7 Unit of Time: Days My plans for post-hospital care for this patient are: Pt will be not depressed or manic, will be more hopeful, will be not psychotic or anxious, will be not having thoughts of harming self or others, will be tolerating medications well, will not have major side effects, will be able to function, will not pose threat to self or others.
--- NOTE | 2018-07-22 18:43 | CP.PCM.CON ---
History of Present Illness - History of Present Illness History of Present Illness: Infectious Disease Consultation: July 22, 2018 38 yo male with PMHx of HIV, sickle cell anemia, MVP, endocarditis, Aortic valve replacement in 2012, crystal meth IV drug abuse, and history of admissions for schizophrenia presenting with complaints of back pain which began this past Saturday. Describes pain as sharp, 10/10 non radiating, exacerbated with movements triggered by carrying his heavy clothes and objects through the city. Patient states he also has been having a sore throat for the past week for which he went to [place] two days ago for evaluation; as per patient he was prescribed azith romycin however has not noticed any improvements in his symptoms. Patient states his last CD4 count was 29 and his last time on HAART therapy consistently was between November-December this year but due to constantly moving from longterm to longterm he is unable to be compliant with his medications. Patient denies fevers, chills, cough, diarrhea, abdominal pain, nausea, vomiting, chest pain, dysuria. Patient with rapid flight of thoughts and uninhibited behavior. He has extreme difficulty maintaining a single line of thought. For inpatient psych. 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, denies tobacco use, admits to occasional alcohol use (4 lokos every 5 months or so), admits to IV drug abuse (crystal meth for which patient says he pays for with his own money from his previous job as a teacher) Allergies: mirtazapine, aripiprazole Active Medications Acetaminophen (Tylenol 325mg Tab) 650 mg PO Q6H PRN PRN Reason: Pain, moderate (4-7) Al Hydrox/Mg Hydrox/Simethicone (Maalox Plus 30 Ml) 30 ml PO DAILY PRN PRN Reason: Indigestion / Heartburn Azithromycin (Zithromax) 500 mg PO DAILY [facility]; Protocol Last Admin: 07/22/18 08:49 Dose: 500 mg Diphenhydramine HCl (Benadryl) 25 mg PO HS PRN PRN Reason: Insomnia Diphenhydramine HCl (Benadryl) 50 mg IM Q6H PRN PRN Reason: Severe Agitation Diphenhydramine HCl (Benadryl) 50 mg PO Q6H PRN PRN Reason: Agitation Last Admin: 07/21/18 21:10 Dose: 50 mg Divalproex Sodium (Depakote Dr(*Bid*)) 500 mg PO [facility]; Protocol Last Admin: 07/22/18 09:32 Dose: 500 mg Haloperidol (Haldol) 5 mg PO Q6H PRN; Protocol PRN Reason: Agitation Last Admin: 07/22/18 03:10 Dose: 5 mg Haloperidol Lactate (Haldol) 5 mg IM Q6H PRN; Protocol PRN Reason: Severe Agitation Ibuprofen (Motrin Tab) 600 mg PO Q6H PRN PRN Reason: Pain (8-10), fever Last Admin: 07/21/18 21:09 Dose: 600 mg Lidocaine (Lidoderm) 1 ea TD DAILY ELISABETH Last Admin: 07/22/18 08:47 Dose: 1 ea Lorazepam (Ativan) 1 mg PO Q4H PRN; Protocol PRN Reason: Anxiety Last Admin: 07/22/18 11:05 Dose: 1 mg Lorazepam (Ativan) 2 mg IM Q6H PRN; Protocol PRN Reason: Severe Agitation Lorazepam (Ativan) 2 mg PO Q6H PRN; Protocol PRN Reason: Agitation Magnesium Hydroxide (Milk Of Magnesia) 30 ml PO DAILY PRN PRN Reason: Constipation Pantoprazole Sodium (Protonix Ec Tab) 40 mg PO 0600 ELISABETH Last Admin: 07/22/18 06:25 Dose: 40 mg Quetiapine Fumarate (Seroquel) 150 mg PO [facility]; Protocol Last Admin: 07/22/18 09:33 Dose: 150 mg Trimethoprim/Sulfamethoxazole (Bactrim Ds Tab) 1 tab PO DAILY ELISABETH; Protocol Last Admin: 07/22/18 08:49 Dose: 1 tab Family Hx: none given ROS: no fevers, chills, nausea, vomiting, diarrhea, headaches, dizziness, chest pain, abdominal pain, melena, hematuria, hematemesis, hematochezia, depression, anxiety. Past Patient History - Infectious Disease Hx of Infectious Diseases: None - Tetanus Immunizations Tetanus Immunization: Unknown - Past Medical History & Family History Past Medical History?: Yes - Past Social History Smoking Status: Never Smoked - CARDIAC Hx Hypertension: Yes Hx Mitral Valve Prolapse: (mv regurgitation) - PULMONARY Hx Respiratory Disorders: No - NEUROLOGICAL Hx Seizures: Yes - HEENT Hx HEENT Problems: No - RENAL Hx Chronic Kidney Disease: No - ENDOCRINE/METABOLIC Hx Endocrine Disorders: No - HEMATOLOGICAL/ONCOLOGICAL Hx Anemia: Yes Hx Sickle Cell Disease: Yes - INTEGUMENTARY Hx Dermatological Problems: No - MUSCULOSKELETAL/RHEUMATOLOGICAL Hx Musculoskeletal Disorders: No Hx Falls: No - GASTROINTESTINAL Hx Gastrointestinal Disorders: No - GENITOURINARY/GYNECOLOGICAL Hx Sexually Transmitted Disorders: Yes - PSYCHIATRIC Hx Anxiety: Yes Hx Bipolar Disorder: Yes Hx Depression: Yes Hx Schizophrenia: Yes Hx Substance Use: Yes - SURGICAL HISTORY Hx Orthopedic Surgery: Yes (Bunionectomy) Hx Valve Replacement: Yes (AORTIC VALVE REPLACEMENT) Other/Comment: aortic valve replacement 2013/mitral valve repair - ANESTHESIA Hx Anesthesia: Yes Hx Anesthesia Reactions: No Hx Malignant Hyperthermia: No Meds Allergies/Adverse Reactions: Allergies Allergy/AdvReac Type Severity Reaction Status Date / Time aripiprazole [From Abilify] Allergy URTICARIA Verified 07/21/18 18:12 mirtazapine [From Remeron] Allergy CONGESTION Verified 07/21/18 18:12 - Medications Medications: Current Medications Acetaminophen (Tylenol 325mg Tab) 650 mg PO Q6H PRN PRN Reason: Pain, moderate (4-7) Al Hydrox/Mg Hydrox/Simethicone (Maalox Plus 30 Ml) 30 ml PO DAILY PRN PRN Reason: Indigestion / Heartburn Azithromycin (Zithromax) 500 mg PO DAILY ELISABETH; Protocol Last Admin: 07/22/18 08:49 Dose: 500 mg Diphenhydramine HCl (Benadryl) 25 mg PO HS PRN PRN Reason: Insomnia Diphenhydramine HCl (Benadryl) 50 mg IM Q6H PRN PRN Reason: Severe Agitation Diphenhydramine HCl (Benadryl) 50 mg PO Q6H PRN PRN Reason: Agitation Last Admin: 07/21/18 21:10 Dose: 50 mg Divalproex Sodium (Depakote Dr(*Bid*)) 500 mg PO [facility]; Protocol Last Admin: 07/22/18 09:32 Dose: 500 mg Haloperidol (Haldol) 5 mg PO Q6H PRN; Protocol PRN Reason: Agitation Last Admin: 07/22/18 03:10 Dose: 5 mg Haloperidol Lactate (Haldol) 5 mg IM Q6H PRN; Protocol PRN Reason: Severe Agitation Ibuprofen (Motrin Tab) 600 mg PO Q6H PRN PRN Reason: Pain (8-10), fever Last Admin: 07/21/18 21:09 Dose: 600 mg Lidocaine (Lidoderm) 1 ea TD DAILY ELISABETH Last Admin: 07/22/18 08:47 Dose: 1 ea Lorazepam (Ativan) 1 mg PO Q4H PRN; Protocol PRN Reason: Anxiety Last Admin: 07/22/18 11:05 Dose: 1 mg Lorazepam (Ativan) 2 mg IM Q6H PRN; Protocol PRN Reason: Severe Agitation Lorazepam (Ativan) 2 mg PO Q6H PRN; Protocol PRN Reason: Agitation Magnesium Hydroxide (Milk Of Magnesia) 30 ml PO DAILY PRN PRN Reason: Constipation Pantoprazole Sodium (Protonix Ec Tab) 40 mg PO 0600 ELISABETH Last Admin: 07/22/18 06:25 Dose: 40 mg Quetiapine Fumarate (Seroquel) 150 mg PO [facility] ELISABETH; Protocol Last Admin: 07/22/18 09:33 Dose: 150 mg Trimethoprim/Sulfamethoxazole (Bactrim Ds Tab) 1 tab PO DAILY ELISABETH; Protocol Last Admin: 07/22/18 08:49 Dose: 1 tab Physical Exam - Constitutional Appears: Non-toxic, No Acute Distress, Chronically Ill - Head Exam Head Exam: ATRAUMATIC, NORMOCEPHALIC - Eye Exam Eye Exam: EOMI, PERRL Pupil Exam: NORMAL ACCOMODATION, PERRL - ENT Exam ENT Exam: Mucous Membranes Moist, Normal External Ear Exam, TM's Normal Bilaterally - Neck Exam Neck exam: Positive for: Full Rom, Normal Inspection - Respiratory Exam Respiratory Exam: Clear to Auscultation Bilateral, NORMAL BREATHING PATTERN. absent: Rales, Rhonchi, Wheezes - Cardiovascular Exam Cardiovascular Exam: REGULAR RHYTHM, RRR, +S1, +S2 - GI/Abdominal Exam GI & Abdominal Exam: Normal Bowel Sounds, Soft. absent: Distended, Tenderness - Extremities Exam Extremities exam: Positive for: full ROM, normal inspection - Neurological Exam Neurological exam: Alert, CN II-XII Intact - Psychiatric Exam Additional comments: gi, rapid flight of thoughts. - Skin Skin Exam: Intact, Normal Color Results - Vital Signs Recent Vital Signs: Last Vital Signs Temp 98.5 F 07/21/18 15:20 Pulse 87 07/22/18 16:00 Resp 18 07/21/18 15:30 BP 106/64 07/22/18 16:00 Pulse Ox - Labs Labs: Laboratory Results - last 24 hr 07/22/18 07/22/18 07/22/18 07:30 07:30 07:30 Fasting Glucose 80 Triglycerides 84 Cholesterol 156 LDL Cholesterol Direct 101 HDL Cholesterol 39 TSH 3rd Generation 0.54 Valproic Acid 44 L RPR 07/22/18 07:30 Fasting Glucose Triglycerides Cholesterol LDL Cholesterol Direct HDL Cholesterol TSH 3rd Generation Valproic Acid RPR Nonreactive Assessment & Plan - Assessment and Plan (Free Text) Assessment: 38 yo male with HIV with likely AIDS classification with sore throat presenting with low back pains. History of Crystal Meth abuse (still actively using), Sickle Cell Anemia, Mitral Valve Prolapse, history of endocarditis, Aortic Valve replacement in 2012. No fevers. Leukopenia. Currently with transaminitis. Recheck Hepatitis workup. Supportive care. Patient with flight of thoughts, manic, and uninhibited behavior. Patient needs set up with outpatient HIV clinic in [facility]. To my understanding, the patient has no benefits in [place] as [place] is [place]. Limited options for care of the patient in [place]. In inpatient psych. Started on Prophylactic Bactrim and Azithromycin. Thank you for allowing me to participate in the care of this patient, we will follow with you.
[2018-07-23] MEDS: Pantoprazole 40 mg EC Tab PO SCH (06:50)
[2018-07-23] MEDS: Lidocaine 5% Patch TD SCH (08:31)
[2018-07-23] MEDS: Divalproex 500 mg DR(BID formulation) PO SCH ×2 (09:57→21:39)
[2018-07-23] MEDS: Tmp-Smz 800 mg-160 mg DS Tab PO SCH ×2 (10:08→10:52)
--- NOTE | 2018-07-23 14:03 | PCM.PYCHPN ---
Psychiatric Progress Note - Psychiatric Progress Note Patient seen today, length of contact: 30min Patient Chief Complaint: "I am feeling fine, I want to go home and reestablish accesses, I am good......" Problems Identified/Issues Discussed: Suicide/ homicide prevention, past psychiatric h/o, current psychiatric symptoms, medical problems, risk/benefits and alternatives of medications, medications compliance, coping strategies, substance abuse h/o, relapse prevention, importance of follow up with psychiatrist and therapist, discharge plan. Medical Problems: History of seizure disorder History of Sickle cell anemia History of Aortic valvular regurgitation status post valve surgery History of AIDS pt was admitted to the medical site for back pain Diagnostic Results: Lab Results 07/22/18 07:30: RPR Nonreactive 07/22/18 07:30: TSH 3rd Generation 0.54 07/22/18 07:30: Fasting Glucose 80, Triglycerides 84, Cholesterol 156, LDL Cholesterol Direct 101, HDL Cholesterol 39 07/22/18 07:30: Valproic Acid 44 L Vital Signs Temp Pulse Pulse Resp BP 07/23/18 07:17 98.1 F 82 20 101/58 L 07/22/18 16:00 87 106/64 07/21/18 15:30 110 H 18 07/21/18 15:20 98.5 F 110 H 18 118/75 DSM 5 Symptoms Update: Patient is a 38 years old -[place]ub[place] male currently unemployed, multiple psychiatric admissions in the past, most recent was in [facility] in 2016 in November and February, pt has h/o psychosis, r/o schizophrenia, ?bipolar disorder, h/o stimulant use disorder (methamphetamines and crystal Meth), h/o multiple medical issues including (as per [facility] report) seizure disorder, h/o HIV, AIDS, chronic back pain, sickle cell anemia, History of Aortic valvular regurgitation status post valve surgery, pt reported living in [place], on the medical site pt was refusing to sign himself into the psychiatric unit, was screened by [facility] [place] [place], but during the interview with the screener in order to avoid involuntary commitment pt said that he is willing to get treatment, pt was transferred to the psychiatric inpatient unit in [place], transfer was uneventful. Within less than an hour pt submitted 48 hr notice requesting discharge. pt refused to rescind 48 hr notice. while pt was on the medical floor, pt was exposing himself towards staff, presented to be psychotic. pt was seen today in his room and later on in the treatment team meeting, pt presented to be disorganized, but not agitated, pt's thought process seems to be circumstantial and tangential but pt was trying his best to preset well. aat times patient mumbling incoherently and stuttering, pt had poor personal hygiene, good ADLs. pt said that the goal of his admission is "to establish the access", when was asked what pt means pt said he wants to reestablish services in [place]. pt also wants to managing family relationships. pt's statements were not related to the questions being asked, pt went tangents about the services in [place], pt said that he needs to have housing, "and of course I need to take my medications". of note pt was not compliant with his HIV medications. pt presented to be disorganized and internally preoccupied. Patient reported history of abusing and injecting crystal meth, in the past. UDS was positive for amphetamines, denied smoking. Past psychiatric history as per [facility]: History of multiple inpatient psychiatric hospitalizations in the past, last discharged 2015. h/o noncompliance with follow-up with outpatient clinic, last follow-up unknown Patient denied any history of suicidal ideation or attempt in the past Patient denied any history of homicidal ideation or attempt the past Patient denied any legal charges Patient denied any auditory or visual hallucination the past pt was on the following meds in the past: Keppra 500 mg PO BID Haloperidol 10 mg PO BID Benztropine 1 mg PO BID Efavirenz/Emtricitabine/Teno [Atripla 600 MG-200 MG-300 MG] Patient was noncompliant with the medications and follow up appointments, was not able to take care of himself collateral information was obtained from patient's family mother as well as sister, patient gave written consent, as per family patient was disorganized, was not able to take care of himself, patient's family is very concerned about his safety. 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 Aortic valvular regurgitation History of AIDS Medication Change: Yes Medical Record Reviewed: Yes Consults ordered or reviewed: medical and ID consults appreciated Mental Status Examination - Cognitive Function Orientation: Person, Place, Situation Memory: Impaired Attention: Poor Concentration: Poor Association: Loose Fund of Knowledge: Poor - Mood Mood: Neutral - Affect Affect: Flat - Formal Thought Process Formal Thought Process: Other (pt denied any psychotic symptoms, but presented to be disorganized) - Suicidal Ideation Suicidal Ideation: No - Homicidal Ideation Homicidal Ideation: No Goal/Treatment Plan - Goal/Treatment Plan Need for Continued Stay: Remain at risks for inpatient hospitalization, Severe depression anxiety, Discharge may exacerbated symptoms, Severe functional impairment Progress Toward Problem(s) and Goals/Treatment Plan: Milieu/structure/supportive therapy Medical consult/ID consult SW consultation for discharge plan and social issues Med management seroquel 150mg po amhs for psychosis depakote 500mg po bid for mood stabilization and ?seizures Family involvement, collaterals obtained from mother and sister [facility] [place] [place] screening initiated Follow up on labs Will monitor closely Pt was educated about risk/benefits and alternatives of medications, coping strategies (safety plan, suicide prevention), relapse prevention, importance of follow up with psychiatrist and therapist, stay away from drugs/alcohol/smoking Estimated Date of D/C: 07/25/18
--- NOTE | 2018-07-23 17:37 | CP.PCM.PN ---
Subjective - Date & Time of Evaluation Date of Evaluation: 07/23/18 Time of Evaluation: 16:00 - Subjective Subjective: Infectious Disease Follow Up: July 23, 2018 38 yo male with PMHx of HIV, sickle cell anemia, MVP, endocarditis, Aortic valve replacement in 2012, crystal meth IV drug abuse, and history of admissions for schizophrenia presenting with complaints of back pain which began this past Saturday. Describes pain as sharp, 10/10 non radiating, exacerbated with movements triggered by carrying his heavy clothes and objects through the city. Patient states he also has been having a sore throat for the past week for which he went to [place] two days ago for evaluation; as per patient he was prescribed azithromycin however has not noticed any improvements in his symptoms. Patient states his last CD4 count was 29 and his last time on HAART therapy consistently was between November-December this year but due to constantly moving from group home to group home he is unable to be compliant with his medications. Patient denies fevers, chills, cough, diarrhea, abdominal pain, nausea, vomiting, chest pain, dysuria. Patient with rapid flight of thoughts and uninhibited behavior. He has extreme difficulty maintaining a single line of thought. In inpatient psych. Objective - Vital Signs/Intake and Output Vital Signs (last 24 hours): Temp Pulse Resp BP Pulse Ox 98.1 F 103 H 20 97/55 L 07/23/18 07:17 07/23/18 15:39 07/23/18 07:17 07/23/18 15:39 - Medications Medications: Current Medications Acetaminophen (Tylenol 325mg Tab) 650 mg PO Q6H PRN PRN Reason: Pain, moderate (4-7) Al Hydrox/Mg Hydrox/Simethicone (Maalox Plus 30 Ml) 30 ml PO DAILY PRN PRN Reason: Indigestion / Heartburn Azithromycin (Zithromax) 500 mg PO DAILY [facility]; Protocol Last Admin: 07/23/18 10:52 Dose: Not Given Diphenhydramine HCl (Benadryl) 25 mg PO HS PRN PRN Reason: Insomnia Diphenhydramine HCl (Benadryl) 50 mg IM Q6H PRN PRN Reason: Severe Agitation Diphenhydramine HCl (Benadryl) 50 mg PO Q6H PRN PRN Reason: Agitation Last Admin: 07/22/18 21:14 Dose: 50 mg Divalproex Sodium (Depakote Dr(*Bid*)) 500 mg PO [facility]; Protocol Last Admin: 07/23/18 09:57 Dose: 500 mg Haloperidol (Haldol) 5 mg PO Q6H PRN; Protocol PRN Reason: Agitation Last Admin: 07/23/18 01:43 Dose: 5 mg Haloperidol Lactate (Haldol) 5 mg IM Q6H PRN; Protocol PRN Reason: Severe Agitation Ibuprofen (Motrin Tab) 600 mg PO Q6H PRN PRN Reason: Pain (8-10), fever Last Admin: 07/21/18 21:09 Dose: 600 mg Lidocaine (Lidoderm) 1 ea TD DAILY [facility] Last Admin: 07/23/18 08:31 Dose: 1 ea Lorazepam (Ativan) 1 mg PO Q4H PRN; Protocol PRN Reason: Anxiety Last Admin: 07/23/18 16:28 Dose: 1 mg Lorazepam (Ativan) 2 mg IM Q6H PRN; Protocol PRN Reason: Severe Agitation Lorazepam (Ativan) 2 mg PO Q6H PRN; Protocol PRN Reason: Agitation Last Admin: 07/23/18 01:43 Dose: 2 mg Magnesium Hydroxide (Milk Of Magnesia) 30 ml PO DAILY PRN PRN Reason: Constipation Pantoprazole Sodium (Protonix Ec Tab) 40 mg PO 0600 [facility] Last Admin: 07/23/18 06:50 Dose: 40 mg Quetiapine Fumarate (Seroquel) 150 mg PO [facility]; Protocol Last Admin: 07/23/18 09:57 Dose: 150 mg Trimethoprim/Sulfamethoxazole (Bactrim Ds Tab) 1 tab PO DAILY [facility]; Protocol Last Admin: 07/23/18 10:52 Dose: Not Given - Constitutional Appears: Non-toxic, No Acute Distress, Chronically Ill - Head Exam Head Exam: ATRAUMATIC, NORMOCEPHALIC - Eye Exam Eye Exam: EOMI, PERRL Pupil Exam: NORMAL ACCOMODATION, PERRL - ENT Exam ENT Exam: Mucous Membranes Moist, Normal External Ear Exam, TM's Normal Bilaterally - Neck Exam Neck Exam: Full ROM, Normal Inspection - Respiratory Exam Respiratory Exam: Clear to Ausculation Bilateral, NORMAL BREATHING PATTERN. absent: Rales, Rhonchi, Wheezes - Cardiovascular Exam Cardiovascular Exam: REGULAR RHYTHM, RRR, +S1, +S2 - GI/Abdominal Exam GI & Abdominal Exam: Soft, Normal Bowel Sounds. absent: Distended, Tenderness - Extremities Exam Extremities Exam: Full ROM, Normal Inspection - Neurological Exam Neurological Exam: Alert, Awake, CN II-XII Intact, Oriented x3 - Psychiatric Exam Additional comments: gi, rapid flight of thoughts. - Skin Skin Exam: Intact, Normal Color Assessment and Plan - Assessment and Plan (Free Text) Assessment: 38 yo male with HIV with likely AIDS classification with sore throat presenting with low back pains. History of Crystal Meth abuse (still actively using), Sickle Cell Anemia, Mitral Valve Prolapse, history of endocarditis, Aortic Valve replacement in 2013. No fevers. Leukopenia. Currently with transaminitis. Recheck Hepatitis workup. Supportive care. Patient with flight of thoughts, manic, and uninhibited behavior. Patient needs set up with outpatient HIV clinic in [facility]. To my understanding, the patient has no benefits in [place] as he is [place] Medicaid. Limited options for care of the patient in [place]. In inpatient psych. Started on Prophylactic Bactrim and Azithromycin for PCP and Mycobacterium due to the CD4 being <50 now. Thank you for allowing me to participate in the care of this patient, we will follow with you.
[2018-07-24] MEDS: Pantoprazole 40 mg EC Tab PO SCH (06:36)
[2018-07-24 07:21] VITALS: TEMP 98.4
[2018-07-24] MEDS: Tmp-Smz 800 mg-160 mg DS Tab PO SCH (08:48)
[2018-07-24] MEDS: Lidocaine 5% Patch TD SCH (08:48)
[2018-07-24] MEDS: Divalproex 500 mg DR(BID formulation) PO SCH ×2 (09:44→21:11)
--- NOTE | 2018-07-24 14:56 | PCM.PYCHPN ---
Psychiatric Progress Note - Psychiatric Progress Note Patient seen today, length of contact: 30min Patient Chief Complaint: "I am feeling fine, do you want me to sign another 48 hour notice?" Problems Identified/Issues Discussed: Suicide/ homicide prevention, past psychiatric h/o, current psychiatric symptoms, medical problems, risk/benefits and alternatives of medications, medications compliance, coping strategies, substance abuse h/o, relapse prevention, importance of follow up with psychiatrist and therapist, discharge plan. Medical Problems: History of seizure disorder History of Sickle cell anemia History of Aortic valvular regurgitation status post valve surgery History of AIDS pt was admitted to the medical site for back pain Diagnostic Results: Lab Results 07/22/18 07:30: RPR Nonreactive 07/22/18 07:30: TSH 3rd Generation 0.54 07/22/18 07:30: Fasting Glucose 80, Triglycerides 84, Cholesterol 156, LDL Cholesterol Direct 101, HDL Cholesterol 39 07/22/18 07:30: Valproic Acid 44 L Vital Signs Temp Pulse Pulse Resp BP 07/23/18 07:17 98.1 F 82 20 101/58 L 07/22/18 16:00 87 106/64 07/21/18 15:30 110 H 18 07/21/18 15:20 98.5 F 110 H 18 118/75 DSM 5 Symptoms Update: Patient is a 38 years old -Chilean male currently unemployed, multiple psychiatric admissions in the past, most recent was in [facility] in 2016 in November and February, pt has h/o psychosis, r/o schizophrenia, ?bipolar disorder, h/o stimulant use disorder (methamphetamines and crystal Meth), h/o multiple medical issues including (as per [facility] report) seizure disorder, h/o HIV, AIDS, chronic back pain, sickle cell anemia, History of Aortic valvular regurgitation status post valve surgery, pt reported living in [place], on the medical site pt was refusing to sign himself into the psychiatric unit, was screened by [facility], but during the interview with the screener in order to avoid involuntary commitment pt said that he is willing to get treatment, pt was transferred to the psychiatric inpatient unit in [place], transfer was uneventful. Within less than an hour pt submitted 48 hr notice requesting discharge. pt rescinded 48 hr notice 07/23/18. Patient was seen today next to the nursing station, patient presented with poor personal hygiene, messy/uncombed hair, there is some pieces of food in his tripp. pt presented to be disorganized, but not agitated, pt's thought process seems to be circumstantial and tangential but pt was trying his best to preset well. at times patient mumbling incoherently and stuttering, pt had poor personal hygiene, good ADLs. collateral information was obtained from patient's family mother as well as sister, patient gave written consent, as per family patient was disorganized, was not able to take care of himself, patient's family is very concerned about his safety. so far patient tolerates medications well, no side effects observed or reported, aims 0, no EPS. pt again approached this underwriter asked about discharge, "or do you want me to sign another 48hour notice?" 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 Aortic valvular regurgitation History of AIDS Medication Change: Yes (seroquel increased) Medical Record Reviewed: Yes Consults ordered or reviewed: medical and ID consults appreciated Mental Status Examination - Cognitive Function Orientation: Person, Place, Situation Memory: Impaired Attention: Poor Concentration: Poor Association: Loose Fund of Knowledge: Poor - Mood Mood: Neutral - Affect Affect: Flat - Formal Thought Process Formal Thought Process: Other (pt denied any psychotic symptoms, but presented to be disorganized) - Suicidal Ideation Suicidal Ideation: No - Homicidal Ideation Homicidal Ideation: No Goal/Treatment Plan - Goal/Treatment Plan Need for Continued Stay: Remain at risks for inpatient hospitalization, Severe depression anxiety, Discharge may exacerbated symptoms, Severe functional impairment Progress Toward Problem(s) and Goals/Treatment Plan: Milieu/structure/supportive therapy Medical consult/ID consult consultation for discharge plan and social issues Med management seroquel 200mg po amhs for psychosis depakote 500mg po bid for mood stabilization and ?seizures Family involvement, collaterals obtained from mother and sister [facility] screening initiated Follow up on labs Will monitor closely Pt was educated about risk/benefits and alternatives of medications, coping strategies (safety plan, suicide prevention), relapse prevention, importance of follow up with psychiatrist and therapist, stay away from drugs/alcohol/smoking Estimated Date of D/C: 07/28/18
--- NOTE | 2018-07-24 16:02 | CP.PCM.PN ---
Subjective - Date & Time of Evaluation Date of Evaluation: 07/24/18 Time of Evaluation: 14:30 - Subjective Subjective: Infectious Disease Follow Up: July 24, 2018 38 yo male with PMHx of HIV, sickle cell anemia, MVP, endocarditis, Aortic valve replacement in 2012, crystal meth IV drug abuse, and history of admissions for schizophrenia presenting with complaints of back pain which began this past Saturday. Describes pain as sharp, 10/10 non radiating, exacerbated with movements triggered by carrying his heavy clothes and objects through the city. Patient states he also has been having a sore throat for the past week for which he went to [place] two days ago for evaluation; as per patient he was prescribed azithromycin however has not noticed any improvements in his symptoms. Patient states his last CD4 count was 29 and his last time on HAART therapy consistently was between November-December this year but due to constantly moving from assisted to assisted he is unable to be compliant with his medications. Patient denies fevers, chills, cough, diarrhea, abdominal pain, nausea, vomiting, chest pain, dysuria. Patient with rapid flight of thoughts and uninhibited behavior. He has extreme difficulty maintaining a single line of thought. In inpatient psych. Objective - Vital Signs/Intake and Output Vital Signs (last 24 hours): Temp Pulse Resp BP Pulse Ox 98.4 F 101 H 22 118/79 07/24/18 07:21 07/24/18 07:21 07/24/18 07:21 07/24/18 07:21 - Medications Medications: Current Medications Acetaminophen (Tylenol 325mg Tab) 650 mg PO Q6H PRN PRN Reason: Pain, moderate (4-7) Al Hydrox/Mg Hydrox/Simethicone (Maalox Plus 30 Ml) 30 ml PO DAILY PRN PRN Reason: Indigestion / Heartburn Azithromycin (Zithromax) 500 mg PO DAILY [facility]; Protocol Last Admin: 07/24/18 08:48 Dose: 500 mg Diphenhydramine HCl (Benadryl) 25 mg PO HS PRN PRN Reason: Insomnia Diphenhydramine HCl (Benadryl) 50 mg IM Q6H PRN PRN Reason: Severe Agitation Diphenhydramine HCl (Benadryl) 50 mg PO Q6H PRN PRN Reason: Agitation Last Admin: 07/22/18 21:14 Dose: 50 mg Divalproex Sodium (Depakote Dr(*Bid*)) 500 mg PO [facility]; Protocol Last Admin: 07/24/18 09:44 Dose: 500 mg Haloperidol (Haldol) 5 mg PO Q6H PRN; Protocol PRN Reason: Agitation Last Admin: 07/23/18 01:43 Dose: 5 mg Haloperidol Lactate (Haldol) 5 mg IM Q6H PRN; Protocol PRN Reason: Severe Agitation Ibuprofen (Motrin Tab) 600 mg PO Q6H PRN PRN Reason: Pain (8-10), fever Last Admin: 07/21/18 21:09 Dose: 600 mg Lidocaine (Lidoderm) 1 ea TD DAILY [facility] Last Admin: 07/24/18 08:48 Dose: 1 ea Lorazepam (Ativan) 1 mg PO Q4H PRN; Protocol PRN Reason: Anxiety Last Admin: 07/24/18 15:14 Dose: 1 mg Lorazepam (Ativan) 2 mg IM Q6H PRN; Protocol PRN Reason: Severe Agitation Lorazepam (Ativan) 2 mg PO Q6H PRN; Protocol PRN Reason: Agitation Last Admin: 07/23/18 01:43 Dose: 2 mg Magnesium Hydroxide (Milk Of Magnesia) 30 ml PO DAILY PRN PRN Reason: Constipation Pantoprazole Sodium (Protonix Ec Tab) 40 mg PO 0600 [facility] Last Admin: 07/24/18 06:36 Dose: 40 mg Quetiapine Fumarate (Seroquel) 200 mg PO [facility]; Protocol Trimethoprim/Sulfamethoxazole (Bactrim Ds Tab) 1 tab PO DAILY [facility]; Protocol Last Admin: 07/24/18 08:48 Dose: 1 tab - Constitutional Appears: Non-toxic, No Acute Distress, Chronically Ill - Head Exam Head Exam: ATRAUMATIC, NORMOCEPHALIC - Eye Exam Eye Exam: EOMI, PERRL Pupil Exam: NORMAL ACCOMODATION, PERRL - ENT Exam ENT Exam: Mucous Membranes Moist, Normal External Ear Exam, TM's Normal Bilaterally - Neck Exam Neck Exam: Full ROM, Normal Inspection - Respiratory Exam Respiratory Exam: Clear to Ausculation Bilateral, Rales, NORMAL BREATHING PATTERN. absent: Rhonchi, Wheezes - Cardiovascular Exam Cardiovascular Exam: REGULAR RHYTHM, RRR, +S1, +S2 - GI/Abdominal Exam GI & Abdominal Exam: Soft, Normal Bowel Sounds. absent: Distended, Tenderness - Extremities Exam Extremities Exam: Full ROM, Normal Inspection - Neurological Exam Neurological Exam: Alert, Awake, CN II-XII Intact, Oriented x3 - Psychiatric Exam Additional comments: gi, rapid flight of thoughts. - Skin Skin Exam: Intact, Normal Color Assessment and Plan - Assessment and Plan (Free Text) Assessment: 38 yo male with HIV with likely AIDS classification with sore throat presenting with low back pains. History of Crystal Meth abuse (still actively using), Sickle Cell Anemia, Mitral Valve Prolapse, history of endocarditis, Aortic Valve replacement in 2012. No fevers. Leukopenia. Currently with transaminitis. Recheck Hepatitis workup. Supportive care. Patient with flight of thoughts, manic, and uninhibited behavior. Patient needs set up with outpatient HIV clinic in [facility]. To my understanding, the patient has no benefits in [place] as he is [place] Medicaid. Limited options for care of the patient in [place]. In inpatient psych. Started on Prophylactic Bactrim and Azithromycin for PCP and Mycobacterium due to the CD4 being <50 now. Thank you for allowing me to participate in the care of this patient, we will follow with you.
[2018-07-25] MEDS: Pantoprazole 40 mg EC Tab PO SCH (05:29)
[2018-07-25 07:26] VITALS: RESP 20
[2018-07-25] MEDS: Tmp-Smz 800 mg-160 mg DS Tab PO SCH (08:28)
[2018-07-25] MEDS: Lidocaine 5% Patch TD SCH (08:33)
--- NOTE | 2018-07-25 12:48 | PCM.PYCHPN ---
Psychiatric Progress Note - Psychiatric Progress Note Patient seen today, length of contact: 30min Patient Chief Complaint: " my aunt, which is not my blood aunt , she is an aunt of my sister's ex boyfriend, now my sister is to another cruz" Problems Identified/Issues Discussed: Suicide/ homicide prevention, past psychiatric h/o, current psychiatric symptoms, medical problems, risk/benefits and alternatives of medications, medications compliance, coping strategies, substance abuse h/o, relapse prevention, importance of follow up with psychiatrist and therapist, discharge plan. Medical Problems: History of seizure disorder History of Sickle cell anemia History of Aortic valvular regurgitation status post valve surgery History of AIDS pt was admitted to the medical site for back pain Diagnostic Results: Lab Results 07/22/18 07:30: RPR Nonreactive 07/22/18 07:30: TSH 3rd Generation 0.54 07/22/18 07:30: Fasting Glucose 80, Triglycerides 84, Cholesterol 156, LDL Cholesterol Direct 101, HDL Cholesterol 39 07/22/18 07:30: Valproic Acid 44 L Vital Signs Temp Pulse Pulse Resp BP 07/23/18 07:17 98.1 F 82 20 101/58 L 07/22/18 16:00 87 106/64 07/21/18 15:30 110 H 18 07/21/18 15:20 98.5 F 110 H 18 118/75 Lab Results 07/22/18 07:30: RPR Nonreactive 07/22/18 07:30: TSH 3rd Generation 0.54 07/22/18 07:30: Fasting Glucose 80, Triglycerides 84, Cholesterol 156, LDL Cholesterol Direct 101, HDL Cholesterol 39 07/22/18 07:30: Valproic Acid 44 L Vital Signs Temp Pulse Pulse Resp BP 07/25/18 07:25 98.4 F 86 20 94/58 L 07/24/18 15:00 92 H 108/66 07/24/18 07:21 98.4 F 101 H 22 118/79 07/23/18 15:39 103 H 97/55 L 07/23/18 07:17 98.1 F 82 20 101/58 L 07/22/18 16:00 87 106/64 07/21/18 15:30 110 H 18 07/21/18 15:20 98.5 F 110 H 18 118/75 DSM 5 Symptoms Update: Patient is a 38 years old -[place]og[place] male currently unemployed, multiple psychiatric admissions in the past, most recent was in [facility] in 2016 in November and February, pt has h/o psychosis, r/o schizophrenia, ?bipolar disorder, h/o stimulant use disorder (methamphetamines and crystal Meth), h/o multiple medical issues including (as per [facility] report) seizure disorder, h/o HIV, AIDS, chronic back pain, sickle cell anemia, History of Aortic valvular regurgitation status post valve surgery, pt reported living in [place], on the medical site pt was refusing to sign himself into the psychiatric unit, was screened by [facility], but during the interview with the screener in order to avoid involuntary commitment pt said that he is willing to get treatment, pt was transferred to the psychiatric inpatient unit in [place], transfer was uneventful. Within less than an hour pt submitted 48 hr notice requesting discharge. pt rescinded 48 hr notice 07/23/18, submitted another 48hr notice 07/24/18. Patient was seen today with SW at the treatment team meeting room. patient presented with poor personal hygiene, messy/uncombed hair, there is some pieces of food in his tripp. pt presented to be disorganized with circumstantial and tangential thought process, pt reported that " my aunt, which is not my blood aunt , she is an aunt of my sister's ex boyfriend, now my sister is to another cruz". pt is very superficial, said that he will follow with outpatient psychiatrist and HIV clinic, but it is doubtful. pt was seen by ID team, input appreciated. Pt is not agitated, pt's thought process seems to be circumstantial and tangential but pt was trying his best to preset well. at times patient mumbling incoherently and stuttering. collateral information was obtained from patient's family mother as well as sister, patient gave written consent, as per family patient was disorganized, was not able to take care of himself, patient's family is very concerned about his safety. so far patient tolerates medications well, no side effects observed or reported, aims 0, no EPS. 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 Aortic valvular regurgitation History of AIDS Medication Change: Yes (seroquel increased) Medical Record Reviewed: Yes Mental Status Examination - Cognitive Function Orientation: Person, Place, Situation Memory: Impaired Attention: Poor Concentration: Poor Association: Loose Fund of Knowledge: Poor - Mood Mood: Neutral - Affect Affect: Flat - Formal Thought Process Formal Thought Process: Other (pt denied any psychotic symptoms, but presented to be disorganized) - Suicidal Ideation Suicidal Ideation: No - Homicidal Ideation Homicidal Ideation: No Goal/Treatment Plan - Goal/Treatment Plan Need for Continued Stay: Remain at risks for inpatient hospitalization, Severe depression anxiety, Discharge may exacerbated symptoms, Severe functional impairment Progress Toward Problem(s) and Goals/Treatment Plan: Milieu/structure/supportive therapy Medical consult/ID consult SW consultation for discharge plan and social issues Med management seroquel 200mg po amhs for psychosis depakote 500mg po bid for mood stabilization and ?seizures Family involvement, collaterals obtained from mother and sister [facility] screening will be initiated Follow up on labs Will monitor closely Pt was educated about risk/benefits and alternatives of medications, coping strategies (safety plan, suicide prevention), relapse prevention, importance of follow up with psychiatrist and therapist, stay away from drugs/alcohol/smoking in case pt would be not accepted by [facility] this va underwriter left all scripts in the chart discussed with PMD 07/25/18 pt needs to continue antibiotics for prophylaxis aciclovir for another 4 days only Estimated Date of D/C: 07/28/18
[2018-07-25] MEDS: Divalproex 500 mg DR(BID formulation) PO SCH ×2 (14:58→21:39)
--- NOTE | 2018-07-25 15:18 | CP.PCM.PN ---
Subjective - Date & Time of Evaluation Date of Evaluation: 07/25/18 Time of Evaluation: 14:30 - Subjective Subjective: Infectious Disease Follow Up: July 25, 2018 38 yo male with PMHx of HIV, sickle cell anemia, MVP, endocarditis, Aortic valve replacement in 2012, crystal meth IV drug abuse, and history of admissions for schizophrenia presenting with complaints of back pain which began this past Saturday. Describes pain as sharp, 10/10 non radiating, exacerbated with movements triggered by carrying his heavy clothes and objects through the city. Patient states he also has been having a sore throat for the past week for which he went to [place] two days ago for evaluation; as per patient he was prescribed azithromycin however has not noticed any improvements in his symptoms. Patient states his last CD4 count was 29 and his last time on HAART therapy consistently was between November-December this year but due to constantly moving from jail to jail he is unable to be compliant with his medications. Patient denies fevers, chills, cough, diarrhea, abdominal pain, nausea, vomiting, chest pain, dysuria. Patient with rapid flight of thoughts and uninhibited behavior. He has extreme difficulty maintaining a single line of thought but has improved since going to inpatient psych. In inpatient psych now. Objective - Vital Signs/Intake and Output Vital Signs (last 24 hours): Temp Pulse Resp BP Pulse Ox 98.4 F 86 20 94/58 L 07/25/18 07:25 07/25/18 07:25 07/25/18 07:25 07/25/18 07:25 - Medications Medications: Current Medications Acetaminophen (Tylenol 325mg Tab) 650 mg PO Q6H PRN PRN Reason: Pain, moderate (4-7) Last Admin: 07/25/18 03:58 Dose: 650 mg Acyclovir (Zovirax) 400 mg PO 5XD ELISABETH; Protocol Last Admin: 07/25/18 14:59 Dose: 400 mg Al Hydrox/Mg Hydrox/Simethicone (Maalox Plus 30 Ml) 30 ml PO DAILY PRN PRN Reason: Indigestion / Heartburn Azithromycin (Zithromax) 500 mg PO DAILY ELISABETH; Protocol Last Admin: 07/25/18 08:33 Dose: 500 mg Diphenhydramine HCl (Benadryl) 25 mg PO HS PRN PRN Reason: Insomnia Diphenhydramine HCl (Benadryl) 50 mg IM Q6H PRN PRN Reason: Severe Agitation Diphenhydramine HCl (Benadryl) 50 mg PO Q6H PRN PRN Reason: Agitation Last Admin: 07/24/18 21:12 Dose: 50 mg Divalproex Sodium (Depakote Dr(*Bid*)) 500 mg PO [facility]; Protocol Last Admin: 07/25/18 14:58 Dose: 500 mg Haloperidol (Haldol) 5 mg PO Q6H PRN; Protocol PRN Reason: Agitation Last Admin: 07/23/18 01:43 Dose: 5 mg Haloperidol Lactate (Haldol) 5 mg IM Q6H PRN; Protocol PRN Reason: Severe Agitation Ibuprofen (Motrin Tab) 600 mg PO Q6H PRN PRN Reason: Pain (8-10), fever Last Admin: 07/21/18 21:09 Dose: 600 mg Lidocaine (Lidoderm) 1 ea TD DAILY ELISABETH Last Admin: 07/25/18 08:33 Dose: 1 ea Lorazepam (Ativan) 1 mg PO Q4H PRN; Protocol PRN Reason: Anxiety Last Admin: 07/25/18 03:53 Dose: 1 mg Lorazepam (Ativan) 2 mg IM Q6H PRN; Protocol PRN Reason: Severe Agitation Lorazepam (Ativan) 2 mg PO Q6H PRN; Protocol PRN Reason: Agitation Last Admin: 07/23/18 01:43 Dose: 2 mg Magnesium Hydroxide (Milk Of Magnesia) 30 ml PO DAILY PRN PRN Reason: Constipation Pantoprazole Sodium (Protonix Ec Tab) 40 mg PO 0600 ELISABETH Last Admin: 07/25/18 05:29 Dose: 40 mg Quetiapine Fumarate (Seroquel) 200 mg PO [facility]; Protocol Last Admin: 07/25/18 09:27 Dose: 200 mg Trimethoprim/Sulfamethoxazole (Bactrim Ds Tab) 1 tab PO DAILY ELISABETH; Protocol Last Admin: 07/25/18 08:28 Dose: 1 tab - Constitutional Appears: Non-toxic, No Acute Distress, Chronically Ill - Head Exam Head Exam: ATRAUMATIC, NORMOCEPHALIC - Eye Exam Eye Exam: EOMI, PERRL Pupil Exam: NORMAL ACCOMODATION, PERRL - ENT Exam ENT Exam: Mucous Membranes Moist, Normal External Ear Exam, TM's Normal Bilaterally - Neck Exam Neck Exam: Full ROM, Normal Inspection - Respiratory Exam Respiratory Exam: Clear to Ausculation Bilateral, NORMAL BREATHING PATTERN. absent: Rales, Rhonchi, Wheezes - Cardiovascular Exam Cardiovascular Exam: REGULAR RHYTHM, RRR, +S1, +S2 - GI/Abdominal Exam GI & Abdominal Exam: Soft, Normal Bowel Sounds. absent: Distended, Tenderness - Extremities Exam Extremities Exam: Full ROM, Normal Inspection - Neurological Exam Neurological Exam: Alert, Awake, CN II-XII Intact, Oriented x3 - Psychiatric Exam Additional comments: gi, rapid flight of thoughts. - Skin Skin Exam: Intact, Normal Color Assessment and Plan - Assessment and Plan (Free Text) Assessment: 38 yo male with HIV with likely AIDS classification with sore throat presenting with low back pains. History of Crystal Meth abuse (still actively using), Sickle Cell Anemia, Mitral Valve Prolapse, history of endocarditis, Aortic Valve replacement in 2012. No fevers. Leukopenia. Currently with transaminitis. Recheck Hepatitis workup. Supportive care. Patient with flight of thoughts, manic, and uninhibited behavior. Patient needs set up with outpatient HIV clinic in [facility]. To my understanding, the patient has no benefits in [place] as he is [place]. Limited options for care of the patient in [place]. In inpatient psych. Started on Prophylactic Bactrim and Azithromycin for PCP and Mycobacterium due to the CD4 being <50 now. Thank you for allowing me to participate in the care of this patient, we will follow with you.
[2018-07-25] MEDS ORDERED: Petrolatum Oint Foilpak (5 gm) TOP PRN (17:13)
[2018-07-25 19:36] VITALS: BP 124/72; PULSE 113
[2018-07-26] MEDS: Pantoprazole 40 mg EC Tab PO SCH (06:50)
[2018-07-26] MEDS: Tmp-Smz 800 mg-160 mg DS Tab PO SCH (08:44)
[2018-07-26] MEDS: Lidocaine 5% Patch TD SCH (08:52)
--- NOTE | 2018-07-26 10:05 | PCM.PYCHDC ---
Mental Status Examination - Mental Status Examination Orientation: Person, Place, Situation Memory: Intact Mood: Anxious Affect: Broad Speech: Appropriate Attention: Poor Concentration: Poor Association: Loose Fund of Knowledge: Poor Formal Thought Process: Loosening of associations Description of patient's judgement and insight: Improved however insight remain poor/fair Suicidal Ideation: No Current Homicidal Ideation?: No Discharge Summary - Discharge Note Reason for Hospitalization: Patient is a 38 years old -Russian male currently unemployed, multiple psychiatric admissions in the past, most recent was in [facility] in 2016 in November and February, pt has h/o psychosis, r/o schizophrenia, ?bipolar disorder, h/o stimulant use disorder (methamphetamines and crystal Meth), h/o multiple medical issues including (as per [facility] report) seizure disorder, h/o HIV, AIDS, chronic back pain, sickle cell anemia, History of Aortic valvular regurgitation status post valve surgery, pt reported living in [place], on the medical site pt was refusing to sign himself into the psychiatric unit, was screened by [facility], but during the interview with the screener in order to avoid involuntary commitment pt said that he is willing to get treatment, pt was transferred to the psychiatric inpatient unit in [place], transfer was uneventful. Within less than an hour pt submitted 48 hr notice requesting discharge. pt rescinded 48 hr notice 07/23/18, submitted another 48hr notice 07/24/18. Psychiatric History (includes Medical, Family, Personal Hx): as per HPI Laboratory Data: Laboratory Tests 07/22/18 07/22/18 07/22/18 07:30 07:30 07:30 Fasting Glucose 80 Triglycerides 84 Cholesterol 156 LDL Cholesterol Direct 101 HDL Cholesterol 39 TSH 3rd Generation 0.54 Valproic Acid 44 L RPR 07/22/18 07:30 Fasting Glucose Triglycerides Cholesterol LDL Cholesterol Direct HDL Cholesterol TSH 3rd Generation Valproic Acid RPR Nonreactive Consultations:: List each consultation separately and include: 1. Reason for request. 2. Findings. 3. Follow-up Consultations: Dr. Gunn 07/22/18 Dr. Osman 07/22/18-07/25/18 Summary of Hospital Course include:: 1. Description of specific treatment plan utilized for patients during their course of treatmen. 2. Summarize the time- course for resolution of acute symptoms and/or regressed behaviors. 3. Describe issues identified and worked on during hospitalization. 4. Describe medication utilized. 5. Describe medical problems identified and treated. 6. Reassessment of suicide risk Summary of Hospital Course: DR. HUFF'S PROGRESS NOTE ON 07/25/18 Patient is a 38 years old -Russian male currently unemployed, multiple psychiatric admissions in the past, most recent was in [facility] in 2016 in November and February, pt has h/o psychosis, r/o schizophrenia, ?bipolar disorder, h/o stimulant use disorder (methamphetamines and crystal Meth), h/o multiple medical issues including (as per [facility] report) seizure disorder, h/o HIV, AIDS, chronic back pain, sickle cell anemia, History of Aortic valvular regurgitation status post valve surgery, pt reported living in [place], on the medical site pt was refusing to sign himself into the psychiatric unit, was screened by [facility], but during the interview with the screener in order to avoid involuntary commitment pt said that he is willing to get treatment, pt was transferred to the psychiatric inpatient unit in [place], transfer was uneventful. Within less than an hour pt submitted 48 hr notice requesting discharge. pt rescinded 48 hr notice 07/23/18, submitted another 48hr notice 07/24/18. Patient was seen today with SW at the treatment team meeting room. patient presented with poor personal hygiene, messy/uncombed hair, there is some pieces of food in his tripp. pt presented to be disorganized with circumstantial and tangential thought process, pt reported that " my aunt, which is not my blood aunt , she is an aunt of my sister's ex boyfriend, now my sister is to another cruz". pt is very superficial, said that he will follow with outpatient psychiatrist and HIV clinic, but it is doubtful. pt was seen by ID team, input appreciated. Pt is not agitated, pt's thought process seems to be circumstantial and tangential but pt was trying his best to preset well. at times patient mumbling incoherently and stuttering. collateral information was obtained from patient's family mother as well as sister, patient gave written consent, as per family patient was disorganized, was not able to take care of himself, patient's family is very concerned about his safety. so far patient tolerates medications well, no side effects observed or reported, aims 0, no EPS. DISCHARGED AMA ON 48 HOUR NOTICE. DISCHARGE NOTE 07/26/18 Patient met with the screener, Carson Bhardwaj at 2030 on 07/25/18. Screener felt [place] was not a danger to himself or others 48 hr notice was up at 1600 on 07/26/18 and patient discharged on this date. I interviewed patient in the hallway prior to his discharge Patient is alert and oriented to month, year and circumstances. Eye contact is good. Patient feels improved and denies any suicidal thoughts or thoughts to harm others. Affect is calm and appropriately reactive. Patient denies hallucinations and is not responding to internal stimuli. Thought process can be scattered and speech is rapid but patient is much more aware of these symptoms and can refocus himself to respond more slowly and logically. Patient would benefit from further hospitalization however he refuses to retract 48 hour letter. He is definitely more organized and less manicky and less bizarre than when I interviewed him last weekend. Remains p leasant but odd. Denies acute discomfort or pain. Tolerating medications and denies any issues with them. Plans to f/u with his regular psychiatrist. - Final Diagnosis (DSM 5) Condition upon Discharge: GUARDED 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 Aortic valvular regurgitation History of AIDS Disposition: AGAINST MEDICAL ADVICE Follow-up Treatment Plan: PLEASE REFER TO SW NOTE FOR DISPOSITION INFORMATION PLEASE REFER TO NURSING NOTE FOR SCRIPTS PROVIDED BY DR. HUFF Prescriptions/Medication Reconciliation: Acyclovir [Zovirax] 400 mg PO DAILY #4 cap Azithromycin [Zithromax] 500 mg PO DAILY #30 tab Divalproex [Depakote DR(*BID*)] 500 mg PO [facility] #30 tcp Lidocaine 5% [Lidoderm] 1 ea TD DAILY #3 patch Pantoprazole [Protonix EC Tab] 40 mg PO 0600 #7 ect Quetiapine Fumarate [Seroquel] 200 mg PO [facility] #30 tab Sulfamethoxazole/Trimethoprim [Bactrim DS Tab] 1 tab PO DAILY #30 tab - Smoking Cessation Smoking Cessation Medication prescribed: No
== END 2018-07-26 11:08 | disposition left against medical advice (07) | DRG 430 ==
LOC: PSYC 15:19
PROVIDERS: ADMIT Psychiatry & Neurology Psychiatry; ATTEND Psychiatry & Neurology Psychiatry
DX: F31.64 Bipolar disorder, current episode mixed, severe, with psychotic features (principal); F15.10 Other stimulant abuse, uncomplicated; G40.909 Epilepsy, unspecified, not intractable, without status epilepticus; Z21 Asymptomatic human immunodeficiency virus [HIV] infection status; D58.9 Hereditary hemolytic anemia, unspecified; D72.819 Decreased white blood cell count, unspecified; I10 Essential (primary) hypertension; I34.1 Nonrheumatic mitral (valve) prolapse; Z79.899 Other long term (current) drug therapy; Z91.14 Patient's other noncompliance with medication regimen; Z91.19 Patient's noncompliance with other medical treatment and regimen; Z95.2 Presence of prosthetic heart valve

== ENCOUNTER 2018-12-17 04:01 | Observation (INO) | payer MEDICARE, MEDICAID ==
[2018-12-17 04:09] VITALS: BMI 22.1
--- NOTE | 2018-12-17 04:14 | ED PDOC ---
Arrival/HPI - General Time Seen by Provider: 12/17/18 04:05 Historian: Patient - History of Present Illness Narrative History of Present Illness (Text): 12/17/18 04:14 Woodrow Jimenez is a 38 year old male, whose past medical history includes HIV, sickle cell trait, MVP, endocarditis, aortic valve replacement, and substance abuse, who presents to the ED complaining of diffuse joint pain tonight. Patient states joint pain is similar to previous episodes of sickle cell crisis. Patient admits to using crystal meth. Patient denies any fever, chills, chest pain, shortness of breath, nausea, vomiting, diarrhea, urinary symptoms, back pain, neck pain, headache, dizziness, or any other complaints. Symptom Onset: Gradual Symptom Course: Unchanged Activities at Onset: Light Context: Home Past Medical History - Provider Review Nursing Documentation Reviewed: Yes - Infectious Disease Hx of Infectious Diseases: None - Tetanus Immunization Tetanus Immunization: Unknown - Cardiac Hx Hypertension: Yes Hx Mitral Valve Prolapse: (mv regurgitation) - Pulmonary Hx Respiratory Disorders: No - Neurological Hx Seizures: Yes - HEENT Hx HEENT Disorder: No - Renal Hx Renal Disorder: No - Endocrine/Metabolic Hx Endocrine Disorders: No - Hematological/Oncological Hx Anemia: Yes Hx Sickle Cell Disease: Yes - Integumentary Hx Dermatological Disorder: No - Musculoskeletal/Rheumatological Hx Musculoskeletal Disorders: No Hx Falls: No - Gastrointestinal Hx Gastrointestinal Disorders: No - Genitourinary/Gynecological Hx Sexually Transmitted Diseases: Yes - Psychiatric Hx Substance Use: Yes (crystal meth) - Surgical History Hx Orthopedic Surgery: Yes (Bunionectomy) Hx Valve Replacement: Yes (AORTIC VALVE REPLACEMENT) Other/Comment: aortic valve replacement 2013/mitral valve repair - Anesthesia Hx Anesthesia: Yes Hx Anesthesia Reactions: No Hx Malignant Hyperthermia: No - Suicidal Assessment Feels Threatened In Home Enviroment: No Family/Social History - Physician Review Nursing Documentation Reviewed: Yes Family/Social History: Unknown Family HX Smoking Status: Never Smoked Hx Alcohol Use: No Hx Substance Use: Yes (crystal meth) Substance used: crystal meth Allergies/Home Meds Allergies/Adverse Reactions: Allergies aripiprazole [From Abilify] Allergy (Verified 12/17/18 04:10) URTICARIA mirtazapine [From Remeron] Allergy (Verified 12/17/18 04:10) CONGESTION Review of Systems - Physician Review All systems were reviewed & negative as marked: Yes - Review of Systems Constitutional: Normal. absent: Fevers Eyes: Normal ENT: Normal Respiratory: Normal. absent: SOB, Cough Cardiovascular: Normal. absent: Chest Pain Gastrointestinal: Normal. absent: Abdominal Pain, Diarrhea, Nausea, Vomiting Genitourinary Male: Normal. absent: Dysuria, Frequency, Hematuria, Urinary Output Changes Musculoskeletal: Arthralgias. absent: Back Pain, Neck Pain Skin: Normal. absent: Rash Neurological: Normal. absent: Headache, Dizziness Endocrine: Normal Hemo/Lymphatic: Normal Psychiatric: Normal Physical Exam Vital Signs Reviewed: Yes Temperature: Afebrile Blood Pressure: Normal Pulse: Regular Respiratory Rate: Normal Appearance: Positive for: Well-Appearing, Non-Toxic, Comfortable Pain Distress: None Mental Status: Positive for: Alert and Oriented X 3 - Systems Exam Head: Present: Atraumatic, Normocephalic Pupils: Present: PERRL Extroacular Muscles: Present: EOMI Conjunctiva: Present: Normal Mouth: Present: Moist Mucous Membranes Neck: Present: Normal Range of Motion Respiratory/Chest: Present: Clear to Auscultation, Good Air Exchange. No: Respiratory Distress, Accessory Muscle Use Cardiovascular: Present: Regular Rate and Rhythm, Normal S1, S2. No: Murmurs Abdomen: No: Tenderness, Distention, Peritoneal Signs Back: Present: Normal Inspection Upper Extremity: Present: Normal Inspection. No: Cyanosis, Edema Lower Extremity: Present: Normal Inspection. No: Edema Neurological: Present: GCS=15, CN II-XII Intact, Speech Normal Skin: Present: Warm, Dry, Normal Color. No: Rashes Psychiatric: Present: Alert, Oriented x 3, Normal Insight, Normal Concentration Medical Decision Making ED Course and Treatment: 12/17/18 04:14 Impression: 38 year old male complaining of diffuse joint pain tonight. Plan: -- EKG -- Chest X-ray -- Labs, troponin, reticulocyte count -- Urinalysis -- IV fluids -- Toradol -- Reassess and disposition Prior Visits: Notes and results from previous visits were reviewed. Progress Notes: Reviewed EKG, NSR at [address] bpm[address] Non-specific ST/T wave changes. CXR reviewed, shows no acute processes. 12/17/18 05:20 Case discussed with medical office administrator shuttle preparation supervisor, who is aware and agrees with plan. 04/24/19 05:[address] Watkins, who is aware and agrees with plan. Accepts pt in to hospitalist service. Pt will go to [facility] observation for dehydration. - Lab Interpretations I have reviewed the lab results: Yes - RAD Interpretation Web Sizer: ED Physician - EKG Interpretation Interpreted by ED Physician: Yes Type: 12 lead EKG - Scribe Statement The provider has reviewed the documentation as recorded by the Melbaibperfecto Wood Provider Scribe Attestation: All medical record entries made by the Melbaibperfecto were at my direction and personally dictated by me. I have reviewed the chart and agree that the record accurately reflects my personal performance of the history, physical exam, medical decision making, and the department course for this patient. I have also personally directed, reviewed, and agree with the discharge instructions and disposition. Disposition/Present on Arrival - Present on Arrival History of DVT/PE: No History of Uncontrolled Diabetes: No Urinary Catheter: No History Surgical Site Infection Following: None - Disposition
[2018-12-17] MEDS ORDERED: Sodium Chloride 0.9% 1,000 ML IV SCH (04:30)
[2018-12-17 04:52] LABS: BASO # 0.04 K/mm3 (0.0-2.0); BASO % 0.8 % (0.0-3.0); EOS % 0.8 % (1.5-5.0); HEMOGLOBIN 11.1 g/dL (14.0-18.0); LYMPH # 1.3 (1.2-3.4); LYMPH % 24.4 % (22.0-35.0); MEAN CELL VOLUME 86.4 fl (80.0-105.0); MEAN CORPUSCULAR HEMOGLOBIN 27.9 pg (25.0-35.0); MEAN CORPUSCULAR HGB CONC 32.3 g/dl (31.0-37.0); MEAN PLATELET VOLUME 11.4 fl (7.0-11.0); MONO # 0.8 (0.1-0.6); RBC 3.98 10^6/uL (3.5-6.1); RED CELL DISTRIBUTION WIDTH 15.1 % (11.5-14.5); WHITE BLOOD COUNT 5.1 10^3/uL (4.5-11.0)
[2018-12-17 05:01] LABS: INR 1.06; PARTIAL THROMBOPLASTIN TIME 26.8 Seconds (26.9-38.3)
[2018-12-17 05:03] LABS: ALBUMIN 4.7 g/dL (3.0-4.8); ALT/SGPT 20 U/L (7-56); AST/SGOT 79 U/L (17-59); BLOOD UREA NITROGEN 38 mg/dL (7-21); CALCIUM 8.4 mg/dL (8.4-10.5); GFR NON-AFRICAN AMERICAN 38
[2018-12-17] MEDS: Sodium Chloride 0.9% 1,000 ML IV SCH (05:09)
[2018-12-17 05:14] LABS: TROPONIN I < 0.01 ng/mL
--- NOTE | 2018-12-17 05:27 | CP.PCM.HP ---
<Miguel Jama - Last Filed: 12/17/18 06:59> History of Present Illness - History of Present Illness History of Present Illness: PGY-1 Medicine H&P for Dr. Watkins CC: Diffuse joint pain HPI: Patient is a 38 year old male, whose past medical history includes AIDS, sickle cell trait, MVP, endocarditis, aortic valve replacement, anemia, CVA, and methamphetamine abuse, presenting with diffuse joint pain that started 3 days ago. Patient states joint pain is similar to previous episodes of sickle cell crisis. He describes the pain as throbbing, 8/10, and locating in different joints especially in his back. Patient admits to using 1g of crystal meth daily. He states that he has not slept since Saturday and had lost 9 pounds in 5 days due to his side effects of his crystal meth use. Patient states that he is on HAART therapy for his AIDS. He was diagnosed with aids at age 22 from having sexual intercourse with men. He states that his last CD4 count was 45 and viral load is undetectable. He is on a weekly dose of Azithromycin and daily Bactrim for prophylaxis. Patient denies any fever, chills, chest pain, shortness of breath, nausea, vomiting, diarrhea, urinary symptoms, neck pain, headache, dizziness, or any other complaints. He denies suicidal or homicidal ideation. 12-point ROS reviewed and negative except mentioned in HPI. PMHx: AIDS on HAART, sickle cell trait, MVP, endocarditis, aortic valve replacement, anemia (received 10 transfusions in the past), bipolar disorder ( not on medications), depression, anxiety, CVA, seizures, and methamphetamine abuse. Surgical hx: aortic valve replacement, bunionectomy, pinodal cyst removal Social hx: Admits to using IV crystal meth 1g daily for 10 years. Denies tobacco or alcohol use. Sexually active with male partners and does not use protection. Family hx: Sister has sickle cell trait. Mother and father have DM-2. Grandma had kidney failure. Allergies: Aripiprazole, Mirtazapine Medications: HAART, weekly dose of Azithromycin and daily Bactrim for prophylaxis (unsure of dose). PMD: Denies. Follows up at [facility] Psychiatrist: [facility] Pharmacy: [facility] [place] Present on Admission - Present on Admission Any Indicators Present on Admission: No History of DVT/PE: No History of Uncontrolled Diabetes: No Urinary Catheter: No Decubitus Ulcer Present: No Past Patient History - Infectious Disease Hx of Infectious Diseases: None - Tetanus Immunizations Tetanus Immunization: Unknown - Past Medical History & Family History Past Medical History?: Yes - Past Social History Smoking Status: Never Smoked - CARDIAC Hx Hypertension: Yes Hx Mitral Valve Prolapse: (mv regurgitation) - PULMONARY Hx Respiratory Disorders: No - NEUROLOGICAL Hx Seizures: Yes - HEENT Hx HEENT Problems: No - RENAL Hx Chronic Kidney Disease: No - ENDOCRINE/METABOLIC Hx Endocrine Disorders: No - HEMATOLOGICAL/ONCOLOGICAL Hx Anemia: Yes Hx Sickle Cell Disease: Yes - INTEGUMENTARY Hx Dermatological Problems: No - MUSCULOSKELETAL/RHEUMATOLOGICAL Hx Musculoskeletal Disorders: No Hx Falls: No - GASTROINTESTINAL Hx Gastrointestinal Disorders: No - GENITOURINARY/GYNECOLOGICAL Hx Sexually Transmitted Disorders: Yes - PSYCHIATRIC Hx Substance Use: Yes (crystal meth) - SURGICAL HISTORY Hx Orthopedic Surgery: Yes (Bunionectomy) Hx Valve Replacement: Yes (AORTIC VALVE REPLACEMENT) Other/Comment: aortic valve replacement 2012/mitral valve repair - ANESTHESIA Hx Anesthesia: Yes Hx Anesthesia Reactions: No Hx Malignant Hyperthermia: No Meds Allergies/Adverse Reactions: Allergies Allergy/AdvReac Type Severity Reaction Status Date / Time aripiprazole [From Abilify] Allergy URTICARIA Verified 12/17/18 04:10 mirtazapine [From Remeron] Allergy CONGESTION Verified 12/17/18 04:10 Physical Exam - Constitutional Appears: Well, Non-toxic, No Acute Distress - Head Exam Head Exam: ATRAUMATIC, NORMAL INSPECTION, NORMOCEPHALIC - Eye Exam Eye Exam: EOMI, Normal appearance Pupil Exam: NORMAL ACCOMODATION - ENT Exam ENT Exam: Mucous Membranes Dry - Neck Exam Neck exam: Positive for: Normal Inspection. Negative for: Tenderness - Respiratory Exam Respiratory Exam: Decreased Breath Sounds, Clear to Auscultation Bilateral. absent: Rales, Rhonchi, Wheezes, Respiratory Distress - Cardiovascular Exam Cardiovascular Exam: Tachycardia, +S1, +S2, Systolic Murmur. absent: Gallop, Rubs - GI/Abdominal Exam GI & Abdominal Exam: Normal Bowel Sounds, Soft, Tenderness (Tender to palpation in LLQ). absent: Distended, Firm, Guarding - Extremities Exam Extremities exam: Positive for: normal inspection. Negative for: calf tenderness, pedal edema - Back Exam Back exam: absent: CVA tenderness (L), CVA tenderness (R), paraspinal tenderness, vertebral tenderness - Neurological Exam Neurological exam: Alert, CN II-XII Intact, Oriented x3 - Psychiatric Exam Psychiatric exam: Normal Affect, Normal Mood - Skin Skin Exam: Dry, Intact, Normal Color, Warm Results - Vital Signs Recent Vital Signs: Last Vital Signs Temp 98.3 F 12/17/18 04:11 Pulse 104 H 12/17/18 04:11 Resp 16 12/17/18 04:11 BP 116/74 12/17/18 04:11 Pulse Ox 100 12/17/18 04:11 - Labs Result Diagrams: 12/17/18 04:41 12/17/18 04:41 Labs: Laboratory Results - last 24 hr 12/17/18 12/17/18 12/17/18 04:41 04:41 04:41 WBC 5.1 D RBC 3.98 Hgb 11.1 L Hct 34.4 L MCV 86.4 MCH 27.9 MCHC 32.3 RDW 15.1 H Plt Count 200 MPV 11.4 H Neut % (Auto) 58.0 Lymph % (Auto) 24.4 [place] % (Auto) 16.0 H Eos % (Auto) 0.8 L Baso % (Auto) 0.8 Lymph # (Auto) 1.3 [place] # (Auto) 0.8 H Eos # (Auto) 0.0 Baso # (Auto) 0.04 Absolute Neuts (auto) 2.98 Retic Count 0.63 PT 12.0 INR 1.06 APTT 26.8 L Sodium 139 Potassium 4.3 Chloride 102 Carbon Dioxide 27 Anion Gap 15 BUN 38 H Creatinine 2.0 H Est GFR ( Amer) 46 Est GFR (Non-Af Amer) 38 Random Glucose 85 Calcium 8.4 Total Bilirubin 0.6 AST 79 H D ALT 20 Alkaline Phosphatase 100 Troponin I < 0.01 Total Protein 9.5 H Albumin 4.7 Globulin 4.8 Albumin/Globulin Ratio 1.0 L Assessment & Plan - Assessment and Plan (Free Text) Assessment: Patient is a 38 year old male, whose past medical history includes AIDS, sickle cell trait, MVP, endocarditis, aortic valve replacement, anemia, CVA, and methamphetamine abuse, presenting with diffuse joint pain that started 3 days ago. Plan: Diffuse joint pains - Likely 2/s sickle cell crisis - Follow up CXR - Follow up CPK - NS @ 150mL/hr - Percocet5/325mg PO Q6 PRN - Toradol 15mg IV Q6 PRN - Morphine 2mg IV Q6 PRN KARINA - Likely 2/2 dehydration vs sickle cell crisis - Nephrology consulted, Dr. Montalvo - NS @ 150mL/hr - Follow up CPK - Avoid nephrotoxic agents - Continue to monitor Methamphetamine abuse - Follow up UDS - Counselled on drug cessation HIV on HAART - ID consulted, Dr. Ragland - Patient is on prophylaxis Azithromycin and Bactrim but unsure of doses Prophylaxis: - DVT: Hepatin 5000u SC Q8 - GI: Protonix 40mg QD Patient seen and case discussed with attending, Dr. Watkins. Miguel Jama, PGY-1 <Ulises Watkins - Last Filed: 12/18/18 00:00> Results - Vital Signs Recent Vital Signs: Last Vital Signs Temp 97.7 F 12/17/18 06:20 Pulse 64 12/17/18 08:14 Resp 20 12/17/18 08:14 BP 115/74 12/17/18 06:20 Pulse Ox 99 12/17/18 06:20 - Labs Result Diagrams: 12/17/18 04:41 12/17/18 17:08 Labs: Laboratory Results - last 24 hr 12/17/18 12/17/18 12/17/18 04:41 04:41 04:41 WBC 5.1 D RBC 3.98 Hgb 11.1 L Hct 34.4 L MCV 86.4 MCH 27.9 MCHC 32.3 RDW 15.1 H Plt Count 200 MPV 11.4 H Neut % (Auto) 58.0 Lymph % (Auto) 24.4 [place] % (Auto) 16.0 H Eos % (Auto) 0.8 L Baso % (Auto) 0.8 Lymph # (Auto) 1.3 [place] # (Auto) 0.8 H Eos # (Auto) 0.0 Baso # (Auto) 0.04 Absolute Neuts (auto) 2.98 Retic Count 0.63 PT 12.0 INR 1.06 APTT 26.8 L Sodium 139 Potassium 4.3 Chloride 102 Carbon Dioxide 27 Anion Gap 15 BUN 38 H Creatinine 2.0 H Est GFR ( Amer) 46 Est GFR (Non-Af Amer) 38 Random Glucose 85 Calcium 8.4 Total Bilirubin 0.6 AST 79 H D ALT 20 Alkaline Phosphatase 100 Total Creatine Kinase CK-MB (CK-2) CK-MB (CK-2) % Troponin I < 0.01 Total Protein 9.5 H Albumin 4.7 Globulin 4.8 Albumin/Globulin Ratio 1.0 L Urine Color Urine Appearance Urine pH Ur Specific [place] Urine Protein Urine Glucose (UA) Urine Ketones Urine Blood Urine Nitrate Urine Bilirubin Urine Urobilinogen Ur Leukocyte Esterase Urine RBC Urine WBC Ur Epithelial Cells Amorphous Sediment Urine Bacteria Coarse Granular Casts Urine Other Urine Opiates Screen Urine Methadone Screen Ur Barbiturates Screen Ur Phencyclidine Scrn Ur Amphetamines Screen U Benzodiazepines Scrn U Oth Cocaine Metabols U Cannabinoids Screen 12/17/18 12/17/18 12/17/18 06:22 12:30 12:30 WBC RBC Hgb Hct MCV MCH MCHC RDW Plt Count MPV Neut % (Auto) Lymph % (Auto) [place] % (Auto) Eos % (Auto) Baso % (Auto) Lymph # (Auto) [place] # (Auto) Eos # (Auto) Baso # (Auto) Absolute Neuts (auto) Retic Count PT INR APTT Sodium Potassium Chloride Carbon Dioxide Anion Gap BUN Creatinine Est GFR ( Amer) Est GFR (Non-Af Amer) Random Glucose Calcium Total Bilirubin AST ALT Alkaline Phosphatase Total Creatine Kinase 361 H CK-MB (CK-2) 3.5 CK-MB (CK-2) % Cancelled Troponin I Total Protein Albumin Globulin Albumin/Globulin Ratio Urine Color Light yellow Urine Appearance Sl cloudy Urine pH 5.5 Ur Specific [place] >= 1.030 Urine Protein Trace H Urine Glucose (UA) Negative Urine Ketones Trace H Urine Blood Negative Urine Nitrate Negative Urine Bilirubin Negative Urine Urobilinogen 0.2 Ur Leukocyte Esterase Negative Urine RBC 0 - 2 Urine WBC 1 - 3 Ur Epithelial Cells None Amorphous Sediment Small Urine Bacteria Large Coarse Granular Casts Trace Urine Other [place]ast Urine Opiates Screen Negative Urine Methadone Screen Negative Ur Barbiturates Screen Negative Ur Phencyclidine Scrn Negative Ur Amphetamines Screen Positive H U Benzodiazepines Scrn Negative U Oth Cocaine Metabols Negative U Cannabinoids Screen Negative 12/17/18 17:08 WBC RBC Hgb Hct MCV MCH MCHC RDW Plt Count MPV Neut % (Auto) Lymph % (Auto) [place] % (Auto) Eos % (Auto) Baso % (Auto) Lymph # (Auto) [place] # (Auto) Eos # (Auto) Baso # (Auto) Absolute Neuts (auto) Retic Count PT INR APTT Sodium 139 Potassium 4.3 Chloride 104 Carbon Dioxide 27 Anion Gap 12 BUN 35 H Creatinine 1.4 Est GFR ( Amer) > 60 Est GFR (Non-Af Amer) 57 Random Glucose 89 Calcium 8.3 L Total Bilirubin 0.3 AST 63 H D ALT 24 Alkaline Phosphatase 125 Total Creatine Kinase CK-MB (CK-2) CK-MB (CK-2) % Troponin I Total Protein 8.3 Albumin 4.0 Globulin 4.3 Albumin/Globulin Ratio 0.9 L Urine Color Urine Appearance Urine pH Ur Specific [place] Urine Protein Urine Glucose (UA) Urine Ketones Urine Blood Urine Nitrate Urine Bilirubin Urine Urobilinogen Ur Leukocyte Esterase Urine RBC Urine WBC Ur Epithelial Cells Amorphous Sediment Urine Bacteria Coarse Granular Casts Urine Other Urine Opiates Screen Urine Methadone Screen Ur Barbiturates Screen Ur Phencyclidine Scrn Ur Amphetamines Screen U Benzodiazepines Scrn U Oth Cocaine Metabols U Cannabinoids Screen Attending/Attestation - Attestation I have personally seen and examined this patient.: Yes I have fully participated in the care of the patient.: Yes I have reviewed all pertinent clinical information: Yes Notes (Text): 12/17/18 23:59 Patient was seen when he was in the ER . Medical record was reviewed. Agree with history , physical examination, assessment and plan.
[2018-12-17] MEDS ORDERED: Oxycodone/Acetaminophen 5/325 mg Tab PO PRN (06:25)
[2018-12-17] MEDS ORDERED: Morphine 2 mg/ml ISec IVP PRN ×2 (06:26→06:56)
[2018-12-17 07:35] LABS: CK-MB 3.5 ng/mL (0.0-3.6)
--- NOTE | 2018-12-17 08:19 | RAD ---
HISTORY: joint pain COMPARISON: Chest x-ray performed 07/17/18 TECHNIQUE: Chest, one view. FINDINGS: LUNGS: No focal consolidation. Please note that chest x-ray has limited sensitivity for the detection of pulmonary masses. PLEURA: No significant pleural effusion identified. No definite pneumothorax . CARDIOVASCULAR: Median sternotomy wires. Cardiomegaly. Prosthetic cardiac valve. No significant atherosclerotic calcification present. OSSEOUS STRUCTURES: Degenerative changes. VISUALIZED UPPER ABDOMEN: Unremarkable. OTHER FINDINGS: None. IMPRESSION: Cardiomegaly.
[2018-12-17 08:36] VITALS: RESP 20
[2018-12-17 08:47] VITALS: O2SAT 99
[2018-12-17 12:42] LABS: PH,URINE 5.5 (4.7-8.0); URINE BILIRUBIN NEGATIVE (NEGATIVE); URINE BLOOD NEGATIVE (NEGATIVE); URINE GLUCOSE (UA) NEGATIVE (NEGATIVE); URINE LEUKOCYTE ESTERASE NEGATIVE Leu/uL (NEGATIVE); URINE PROTEIN TRACE mg/dL (<30 mg/dL); URINE UROBILINOGEN 0.2 E.U./dL (<1 E.U./dL)
[2018-12-17 12:43] LABS: URINE APPEARANCE SL CLOUDY (CLEAR); URINE COLOR LIGHT YELLOW (YELLOW)
[2018-12-17 12:46] LABS: URINE RBC 0 - 2 /hpf (0-2)
[2018-12-17 12:47] LABS: URINE AMORPHOUS SEDIMENT SMALL /hpf; URINE BACTERIA LARGE /hpf; URINE COARSE GRANULAR CAST TRACE /hpf
--- NOTE | 2018-12-17 13:15 | CARD ---
APPROVED REPORT Date of service: 12/17/2018 EKG Measurement Heart [id number] <Conclusion> Normal sinus rhythm Possible Left atrial enlargement
--- NOTE | 2018-12-17 13:32 | CP.PCM.PCO ---
Physician Communication Note - Physician Communication Note Physician Communication Note: dehydration, KARINA continue IVF, renal consulted, repeat labs in am
[2018-12-17 13:37] LABS: BARBITURATES, UR NEGATIVE (NEGATIVE); BENZODIAZEPINES, UR NEGATIVE (NEGATIVE); OPIATES, UR NEGATIVE (NEGATIVE); PHENCYCLIDINE, UR NEGATIVE (NEGATIVE)
[2018-12-17 17:36] LABS: ALB/GLOB RATIO 0.9 (1.1-1.8); ALT/SGPT 24 U/L (7-56); AST/SGOT 63 U/L (17-59); BLOOD UREA NITROGEN 35 mg/dL (7-21); CALCIUM 8.3 mg/dL (8.4-10.5); GFR NON-AFRICAN AMERICAN 57
--- NOTE | 2018-12-18 05:09 | CON ---
DATE: 12/17/2018 LOCATION: The patient was seen earlier today in room 363, bed 2. CHIEF COMPLAINT: Weakness since several days. HISTORY OF PRESENT ILLNESS: This is a 38-year-old male with a past medical history of HIV and AIDS with low T cells up to 40 CD5 T cells and history of depression. He states that he also has a history of bipolar schizoaffective disorder, sickle cell disease, syphilis, gonorrhea, history of aortic valve replacement in 2012, history of MRSA endocarditis, active intravenous drug abuser. He states that he gets followed in the [place] for his HIV and is admitted through the emergency room complaining of general joint pain and he tells that he had another sickle cell crisis. He admits to using crystal methamphetamine. He also used an intravenous drugs. He denies any chest pain. No fevers. No chills. No nausea or vomiting. REVIEW OF SYSTEMS: Reveals a 12-point review of systems was performed. PAST MEDICAL HISTORY: Significant for positive HIV and AIDS, depression, bipolar, schizoaffective, sickle cell, syphilis, MRSA endocarditis, active intravenous drug abuser, and gonorrhea. PAST SURGICAL HISTORY: Significant for aortic valve replacement in 2012 with a mitral valve repair. The patient also had foot surgery and he states that it was a bunion surgery. ALLERGIES: ALLERGIC TO MIRTAZAPINE AND ALLOPURINOL. MEDICATIONS: At home include and Bacardi according to the patient, and he is noncompliant with his medications. PHYSICAL EXAMINATION GENERAL: The patient is in bed, in no acute distress. VITAL SIGNS: Temperature of 98, heart rate of 104, respiratory rate of 22, blood pressure is 115/70. HEENT: Unremarkable. NECK: Supple. LUNGS: Decreased breath sounds. HEART: Normal S1 and S2. ABDOMEN: Soft, nontender. LABORATORY DATA: Reveals a white count of 5.1, reticulum 0.6, hemoglobin of 11, platelets of 200. Coagulation is noted. Chemistry has been reviewed. Creatinine is 2.0, which is an increase from 1.0 on the last admission in 2018. LFTs are elevated. AST is 79. Urinalysis is noted. Toxicology shows amphetamine screen. The patient had a chest x-ray, which was reported to be negative. history and physical examination is noted. ASSESSMENT AND PLAN: A 38-year-old male with positive human immunodeficiency virus and acquired immunodeficiency syndrome, depression, bipolar, schizoaffective, sickle cell, an active intravenous drug abuser, history of endocarditis with methicillin-resistant Staphylococcus aureus, history of aortic valve replacement, now presenting with generalized joint pains and aches and pains. He is not behaving like a sickle cell disease crisis, normal retic count. 1. Acquired immunodeficiency syndrome and positive human immunodeficiency virus with acute kidney injury, creatinine change from 1.0 to 2.0, sickle cell, must rule out a parvovirus in an end-stage human immunodeficiency virus patient with generalized joint pain. Order a parvovirus serology and parvovirus PCR. We will order blood cultures since he is an active intravenous drug abuser. I have advised him to take his own human immunodeficiency virus medications from home. We will follow with you. Vargas Najera MD
--- NOTE | 2018-12-18 05:24 | CON ---
DATE: 12/17/2018 REASON FOR CONSULTATION: Acute kidney injury. HISTORY OF PRESENT ILLNESS: A 38-year-old male, previously unknown to me. The patient presented to the emergency room early this morning with complaints of fatigue, weakness, tiredness. The patient reports that he has been doing crystal meth all week. He has not been eating and drinking. In the emergency room, apparently he reported joint pain, but currently he is denying any joint pain. He denies any nausea or vomiting. He denies any urinary complaints. In the emergency room, he was found to be normotensive with a blood pressure of 116/74. He was found to be afebrile. His blood work showed WBC count of 5, BUN of 38, and creatinine of 2. His baseline creatinine is 1. Consultation is requested for acute kidney injury. PAST MEDICAL AND SURGICAL HISTORY: HIV, ? sickle cell trait, mitral valve prolapse, endocarditis, aortic valve replacement, substance abuse, anemia, CVA. FAMILY HISTORY: Sickle cell trait in sister, diabetes in parents. SOCIAL HISTORY: IV crystal meth daily for 10 years. No alcohol, no smoking. Homosexual. ALLERGIES: , MIRTAZAPINE. MEDICATIONS AT HOME: HAART, Bactrim. REVIEW OF SYSTEMS: All systems are reviewed, pertinent positives as mentioned in the history of presenting illness, rest unremarkable. PHYSICAL EXAMINATION: GENERAL: Young male lying in bed. VITAL SIGNS: Blood pressure 115/64, heart rate 95, respiratory rate 22, temperature 97.7. HEENT: Normocephalic, atraumatic, positive pallor. NECK: Supple, no JVD. LUNGS: Bilateral equal air entry, bilateral equal expansion. CARDIAC: S1, S2, regular rate and rhythm, no murmur, no rub. ABDOMEN: Soft, nondistended, nontender. Bowel sounds present. EXTREMITIES: No lower extremity edema. LABORATORY DATA: WBC 5.1, hemoglobin 11, hematocrit 34.4, platelets 200. Sodium 139, potassium 4.3, chloride 104, CO2 of 27, BUN 35, creatinine 1.4, glucose 89, calcium 8.3, AST 63, ALT 24, albumin 4. Urinalysis, light yellow, cloudy, pH 5.5, specific gravity greater than 1.030, protein trace, ketones trace. Urine toxicology positive for amphetamines. CURRENT MEDICATIONS: Protonix, normal saline at 150, Tylenol. ASSESSMENT: 1. Acute kidney injury, largely prerenal azotemia. 2. Human immunodeficiency virus, on HAART therapy. 3. History of cerebrovascular accident. 4. Dehydration. PLAN: 1. Continue IV fluids. 2. Hold antiretrovirals for the time being. 3. Monitor urine output. 4. Expect renal parameters to drop to baseline in the next 24 hours. Alysha Palm MD
[2018-12-18] MEDS: Sodium Chloride 0.9% 1,000 ML IV SCH (05:44)
[2018-12-18] MEDS ORDERED: Pantoprazole 40 mg EC Tab PO SCH (06:00)
[2018-12-18 06:24] LABS: BASO # 0.01 K/mm3 (0.0-2.0); BASO % 0.3 % (0.0-3.0); EOS # 0.1 (0.0-0.7); EOS % 2.7 % (1.5-5.0); HEMOGLOBIN 9.7 g/dL (14.0-18.0); LYMPH % 27.2 % (22.0-35.0); MEAN CELL VOLUME 87.5 fl (80.0-105.0); MEAN CORPUSCULAR HEMOGLOBIN 27.5 pg (25.0-35.0); MEAN CORPUSCULAR HGB CONC 31.4 g/dl (31.0-37.0); MONO # 0.4 (0.1-0.6); MONO % 11.9 % (1.0-6.0); RBC 3.53 10^6/uL (3.5-6.1); RED CELL DISTRIBUTION WIDTH 14.9 % (11.5-14.5); WHITE BLOOD COUNT 3.7 10^3/uL (4.5-11.0)
[2018-12-18 06:37] LABS: ALB/GLOB RATIO 0.9 (1.1-1.8); ALBUMIN 3.3 g/dL (3.0-4.8); ALT/SGPT 26 U/L (7-56); AST/SGOT 52 U/L (17-59); BLOOD UREA NITROGEN 23 mg/dL (7-21); CALCIUM 8.2 mg/dL (8.4-10.5); GFR NON-AFRICAN AMERICAN > 60
[2018-12-18 06:57] VITALS: BP 129/75; PULSE 84; TEMP 98.2
[2018-12-18] MEDS ORDERED: Magnesium Oxide 400 mg Tab UD PO STA (08:14)
[2018-12-18] MEDS ORDERED: Magnesium Oxide 400 mg Tab UD PO SCH (10:00)
--- NOTE | 2018-12-18 14:46 | CP.PCM.DIS ---
<Enedina Reinoso - Last Filed: 12/18/18 14:30> Provider - Provider Date of Admission: 12/17/18 05:23 Attending physician: Sera Soto DO Consults: 12/17/18 06:23 Physiatry Consult Routine Comment: Consulting Provider: Migel Montalvo Consulting Physician: Migel Montalvo Reason for Consult: KARINA, sickle cell trait Physician Consult Routine Comment: Consulting Provider: Zelalem Ragland Consulting Physician: Zelalem Ragland Reason for Consult: History of AIDS Time Spent in preparation of Discharge (in minutes): 60 Hospital Course - Lab Results Lab Results: Most Recent Lab Values WBC 3.7 10^3/uL (4.5-11.0) L D 12/18/18 06:00 RBC 3.53 10^6/uL (3.5-6.1) 12/18/18 06:00 Hgb 9.7 g/dL (14.0-18.0) L 12/18/18 06:00 Hct 30.9 % (42.0-52.0) L 12/18/18 06:00 MCV 87.5 fl (80.0-105.0) 12/18/18 06:00 MCH 27.5 pg (25.0-35.0) 12/18/18 06:00 MCHC 31.4 g/dl (31.0-37.0) 12/18/18 06:00 RDW 14.9 % (11.5-14.5) H 12/18/18 06:00 Plt Count 173 10^3/uL (120.0-450.0) 12/18/18 06:00 MPV 12.0 fl (7.0-11.0) H 12/18/18 06:00 Neut % (Auto) 57.9 % (50.0-68.0) 12/18/18 06:00 Lymph % (Auto) 27.2 % (22.0-35.0) 12/18/18 06:00 Ware % (Auto) 11.9 % (1.0-6.0) H 12/18/18 06:00 Eos % (Auto) 2.7 % (1.5-5.0) 12/18/18 06:00 Baso % (Auto) 0.3 % (0.0-3.0) 12/18/18 06:00 Lymph # (Auto) 1.0 (1.2-3.4) L 12/18/18 06:00 Ware # (Auto) 0.4 (0.1-0.6) 12/18/18 06:00 Eos # (Auto) 0.1 (0.0-0.7) 12/18/18 06:00 Baso # (Auto) 0.01 K/mm3 (0.0-2.0) 12/18/18 06:00 Absolute Neuts (auto) 2.15 (1.4-6.5) 12/18/18 06:00 Retic Count 0.63 % (0.5-1.5) 12/17/18 04:41 PT 12.0 SECONDS (9.4-12.5) 12/17/18 04:41 INR 1.06 12/17/18 04:41 APTT 26.8 Seconds (26.9-38.3) L 12/17/18 04:41 Sodium 137 mmol/L (132-148) 12/18/18 06:00 Potassium 4.4 mmol/L (3.6-5.0) 12/18/18 06:00 Chloride 109 mmol/L (98-107) H 12/18/18 06:00 Carbon Dioxide 24 mmol/L (21-33) 12/18/18 06:00 Anion Gap 8 (10-20) L 12/18/18 06:00 BUN 23 mg/dL (7-21) H 12/18/18 06:00 Creatinine 0.9 mg/dl (0.8-1.5) 12/18/18 06:00 Est GFR ( Amer) > 60 12/18/18 06:00 Est GFR (Non-Af Amer) > 60 12/18/18 06:00 Random Glucose 104 mg/dL (70-110) 12/18/18 06:00 Calcium 8.2 mg/dL (8.4-10.5) L 12/18/18 06:00 Phosphorus 3.3 mg/dL (2.5-4.5) 12/18/18 06:00 Magnesium 1.4 mg/dL (1.7-2.2) L 12/18/18 06:00 Total Bilirubin 0.3 mg/dL (0.2-1.3) 12/18/18 06:00 AST 52 U/L (17-59) 12/18/18 06:00 ALT 26 U/L (7-56) 12/18/18 06:00 Alkaline Phosphatase 100 U/L (38-126) 12/18/18 06:00 Total Creatine Kinase 361 U/L (35-230) H 12/17/18 06:22 CK-MB (CK-2) 3.5 ng/mL (0.0-3.6) 12/17/18 06:22 CK-MB (CK-2) % Cancelled 12/17/18 06:22 Troponin I < 0.01 ng/mL 12/17/18 04:41 Total Protein 7.2 g/dL (5.8-8.3) 12/18/18 06:00 Albumin 3.3 g/dL (3.0-4.8) 12/18/18 06:00 Globulin 3.9 gm/dL 12/18/18 06:00 Albumin/Globulin Ratio 0.9 (1.1-1.8) L 12/18/18 06:00 Urine Color Light yellow (YELLOW) 12/17/18 12:30 Urine Appearance Sl cloudy (CLEAR) 12/17/18 12:30 Urine pH 5.5 (4.7-8.0) 12/17/18 12:30 Ur Specific [place] >= 1.030 (1.005-1.035) 12/17/18 12:30 Urine Protein Trace mg/dL (<30 mg/dL) H 12/17/18 12:30 Urine Glucose (UA) Negative mg/dL (NEGATIVE) 12/17/18 12:30 Urine Ketones Trace mg/dL (NEGATIVE) H 12/17/18 12:30 Urine Blood Negative (NEGATIVE) 12/17/18 12:30 Urine Nitrate Negative (NEGATIVE) 12/17/18 12:30 Urine Bilirubin Negative (NEGATIVE) 12/17/18 12:30 Urine Urobilinogen 0.2 E.U./dL (<1 E.U./dL) 12/17/18 12:30 Ur Leukocyte Esterase Negative Julio/uL (NEGATIVE) 12/17/18 12:30 Urine RBC 0 - 2 /hpf (0-2) 12/17/18 12:30 Urine WBC 1 - 3 /hpf (0-6) 12/17/18 12:30 Ur Epithelial Cells None /hpf (0-5) 12/17/18 12:30 Amorphous Sediment Small /hpf (NONE) 12/17/18 12:30 Urine Bacteria Large /hpf (NONE) 12/17/18 12:30 Coarse Granular Casts Trace /hpf (NONE) 12/17/18 12:30 Urine Other Uyeast /hpf 12/17/18 12:30 Urine Opiates Screen Negative (NEGATIVE) 12/17/18 12:30 Urine Methadone Screen Negative (NEGATIVE) 12/17/18 12:30 Ur Barbiturates Screen Negative (NEGATIVE) 12/17/18 12:30 Ur Phencyclidine Scrn Negative (NEGATIVE) 12/17/18 12:30 Ur Amphetamines Screen Positive (NEGATIVE) H 12/17/18 12:30 U Benzodiazepines Scrn Negative (NEGATIVE) 12/17/18 12:30 U Oth Cocaine Metabols Negative (NEGATIVE) 12/17/18 12:30 U Cannabinoids Screen Negative (NEGATIVE) 12/17/18 12:30 - Hospital Course Hospital Course: Enedina Reinoso, PGY-1, Internal Medicine Discharge Summary for Dr. Soto 38 year old male with past medical history of AIDS, MVP, endocarditis, aortic valve replacement, anemia, CVA, and methamphetamine abuse presented with diffuse joint pain that started 3 days prior to admission. He reports not having slept since Saturday and lost 9 pound in 5 days due to side effects of crystal methamphetamine use. He has been on therapy for AIDS, taking Genvoya and Prezista. He also takes azithromycin and bactrim for prophylaxis as he has been severely immunocompromised with low CD4 count. His last CD4 count was 45 and viral load was undetectable as per him. He was initially started on percocet, toradol, and morphine, which was later deescalated to tylenol. Patient continued to complain of mild neck and back pain, but was found to be comfortable upon presentation. Patient had KARINA on admission with creatinine of 2 with baseline of 1 from previous admissions. He was given normal saline with resolution of KARINA today. Antiretrovirals were held due to KARINA. Patient was afebrile, had no leukoc ytosis throughout stay at hospital. He did not fulfill SIRS criteria throughout his stay at the hospital. Patient was going to be discharged today, however, patient left prior to information packet and discharge information could be given to him. Patient was found to be stable and ready for discharge today. Patient was told to follow up with PCP within 3-5 days. Patient was told to take all home medications as prescribed. Patient was told to follow up with his HIV clinic. Patient was told to return to the emergency department if he had any new or concerning symptoms. Discharge Diagnoses Diffuse Joint Pains Substance Abuse (Methamphetamine) HIV on HAART KARINA Aortic valve replacement History of CVA History of endocarditis - Date & Time of H&P Date of H&P: 12/17/18 Time of H&P: 05:26 Discharge Exam - Head Exam Head Exam: ATRAUMATIC, NORMAL INSPECTION, NORMOCEPHALIC - Eye Exam Eye Exam: EOMI, PERRL - Neck Exam Neck exam: Full Rom, Tenderness - Respiratory Exam Respiratory Exam: Clear to PA & Lateral, NORMAL BREATHING PATTERN - Cardiovascular Exam Cardiovascular Exam: REGULAR RHYTHM, RRR, +S1, +S2. absent: Clicks, Gallop, Rubs - GI/Abdominal Exam GI & Abdominal Exam: Normal Bowel Sounds, Soft. absent: Distended, Firm, Guarding, Tenderness - Extremities Exam Extremities exam: full ROM, normal capillary refill, normal inspection - Neurological Exam Neurological exam: Alert, CN II-XII Intact, Normal Gait, Oriented x3 - Skin Skin Exam: Dry, Intact, Normal Color Discharge Plan - Follow Up Plan Condition: GOOD Disposition: AGAINST MEDICAL ADVICE Additional Instructions: 1.Please take home medications as prescribed. 2. Please follow up with your PCP within 3 to 5 days 3. Please follow up with HIV clinic within 1 week. 4. Please go to the emergency room if your symptoms return or you experience any new concerning symptoms. <Sera Soto - Last Filed: 12/18/18 17:40> Provider - Provider Date of Admission: 12/17/18 05:23 Attending physician: Sera Soto DO Consults: 12/17/18 06:23 Physiatry Consult Routine Comment: Consulting Provider: Migel Montalvo Consulting Physician: Migel Montalvo Reason for Consult: KARINA, sickle cell trait Physician Consult Routine Comment: Consulting Provider: Zelalem Ragland Consulting Physician: Zelalem Ragland Reason for Consult: History of AIDS Hospital Course - Lab Results Lab Results: Most Recent Lab Values WBC 3.7 10^3/uL (4.5-11.0) L D 12/18/18 06:00 RBC 3.53 10^6/uL (3.5-6.1) 12/18/18 06:00 Hgb 9.7 g/dL (14.0-18.0) L 12/18/18 06:00 Hct 30.9 % (42.0-52.0) L 12/18/18 06:00 MCV 87.5 fl (80.0-105.0) 12/18/18 06:00 MCH 27.5 pg (25.0-35.0) 12/18/18 06:00 MCHC 31.4 g/dl (31.0-37.0) 12/18/18 06:00 RDW 14.9 % (11.5-14.5) H 12/18/18 06:00 Plt Count 173 10^3/uL (120.0-450.0) 12/18/18 06:00 MPV 12.0 fl (7.0-11.0) H 12/18/18 06:00 Neut % (Auto) 57.9 % (50.0-68.0) 12/18/18 06:00 Lymph % (Auto) 27.2 % (22.0-35.0) 12/18/18 06:00 Ware % (Auto) 11.9 % (1.0-6.0) H 12/18/18 06:00 Eos % (Auto) 2.7 % (1.5-5.0) 12/18/18 06:00 Baso % (Auto) 0.3 % (0.0-3.0) 12/18/18 06:00 Lymph # (Auto) 1.0 (1.2-3.4) L 12/18/18 06:00 Ware # (Auto) 0.4 (0.1-0.6) 12/18/18 06:00 Eos # (Auto) 0.1 (0.0-0.7) 12/18/18 06:00 Baso # (Auto) 0.01 K/mm3 (0.0-2.0) 12/18/18 06:00 Absolute Neuts (auto) 2.15 (1.4-6.5) 12/18/18 06:00 Retic Count 0.63 % (0.5-1.5) 12/17/18 04:41 PT 12.0 SECONDS (9.4-12.5) 12/17/18 04:41 INR 1.06 12/17/18 04:41 APTT 26.8 Seconds (26.9-38.3) L 12/17/18 04:41 Sodium 137 mmol/L (132-148) 12/18/18 06:00 Potassium 4.4 mmol/L (3.6-5.0) 12/18/18 06:00 Chloride 109 mmol/L (98-107) H 12/18/18 06:00 Carbon Dioxide 24 mmol/L (21-33) 12/18/18 06:00 Anion Gap 8 (10-20) L 12/18/18 06:00 BUN 23 mg/dL (7-21) H 12/18/18 06:00 Creatinine 0.9 mg/dl (0.8-1.5) 12/18/18 06:00 Est GFR ( Amer) > 60 12/18/18 06:00 Est GFR (Non-Af Amer) > 60 12/18/18 06:00 Random Glucose 104 mg/dL (70-110) 12/18/18 06:00 Calcium 8.2 mg/dL (8.4-10.5) L 12/18/18 06:00 Phosphorus 3.3 mg/dL (2.5-4.5) 12/18/18 06:00 Magnesium 1.4 mg/dL (1.7-2.2) L 12/18/18 06:00 Total Bilirubin 0.3 mg/dL (0.2-1.3) 12/18/18 06:00 AST 52 U/L (17-59) 12/18/18 06:00 ALT 26 U/L (7-56) 12/18/18 06:00 Alkaline Phosphatase 100 U/L (38-126) 12/18/18 06:00 Total Creatine Kinase 361 U/L (35-230) H 12/17/18 06:22 CK-MB (CK-2) 3.5 ng/mL (0.0-3.6) 12/17/18 06:22 CK-MB (CK-2) % Cancelled 12/17/18 06:22 Troponin I < 0.01 ng/mL 12/17/18 04:41 Total Protein 7.2 g/dL (5.8-8.3) 12/18/18 06:00 Albumin 3.3 g/dL (3.0-4.8) 12/18/18 06:00 Globulin 3.9 gm/dL 12/18/18 06:00 Albumin/Globulin Ratio 0.9 (1.1-1.8) L 12/18/18 06:00 Urine Color Light yellow (YELLOW) 12/17/18 12:30 Urine Appearance Sl cloudy (CLEAR) 12/17/18 12:30 Urine pH 5.5 (4.7-8.0) 12/17/18 12:30 Ur Specific [place] >= 1.030 (1.005-1.035) 12/17/18 12:30 Urine Protein Trace mg/dL (<30 mg/dL) H 12/17/18 12:30 Urine Glucose (UA) Negative mg/dL (NEGATIVE) 12/17/18 12:30 Urine Ketones Trace mg/dL (NEGATIVE) H 12/17/18 12:30 Urine Blood Negative (NEGATIVE) 12/17/18 12:30 Urine Nitrate Negative (NEGATIVE) 12/17/18 12:30 Urine Bilirubin Negative (NEGATIVE) 12/17/18 12:30 Urine Urobilinogen 0.2 E.U./dL (<1 E.U./dL) 12/17/18 12:30 Ur Leukocyte Esterase Negative Julio/uL (NEGATIVE) 12/17/18 12:30 Urine RBC 0 - 2 /hpf (0-2) 12/17/18 12:30 Urine WBC 1 - 3 /hpf (0-6) 12/17/18 12:30 Ur Epithelial Cells None /hpf (0-5) 12/17/18 12:30 Amorphous Sediment Small /hpf (NONE) 12/17/18 12:30 Urine Bacteria Large /hpf (NONE) 12/17/18 12:30 Coarse Granular Casts Trace /hpf (NONE) 12/17/18 12:30 Urine Other Uyeast /hpf 12/17/18 12:30 Urine Opiates Screen Negative (NEGATIVE) 12/17/18 12:30 Urine Methadone Screen Negative (NEGATIVE) 12/17/18 12:30 Ur Barbiturates Screen Negative (NEGATIVE) 12/17/18 12:30 Ur Phencyclidine Scrn Negative (NEGATIVE) 12/17/18 12:30 Ur Amphetamines Screen Positive (NEGATIVE) H 12/17/18 12:30 U Benzodiazepines Scrn Negative (NEGATIVE) 12/17/18 12:30 U Oth Cocaine Metabols Negative (NEGATIVE) 12/17/18 12:30 U Cannabinoids Screen Negative (NEGATIVE) 12/17/18 12:30 Attending/Attestation - Attestation I have personally seen and examined this patient.: Yes I have fully participated in the care of the patient.: Yes I have reviewed all pertinent clinical information, including history, physical exam and plan: Yes Notes (Text): Please note this DC summary is for 12/18/18 Patient seen and examined by me with resident at approximately 10:30AM on 12/18/18. Case including discharge plan discussed with resident. Agree with above with following additions/corrections. Patient is a 38 year old male with past medical history significant for AIDS, questionable sickle cell trait, mitral valve prolapse, endocarditis, aortic valve replacement, anemia, questionable CVA, and methamphetamine abuse that presented to the emergency room with diffuse joint pain that started 3 days prior. Please see H&P for full details. Patient was admitted with diffuse joint pains, acute kidney injury, methamphetamine abuse, and HIV. Retic count was 0.63. Unlikely sickle cell crisis. Joint pains likely secondary to IV methamphetamine abuse. Patient was counseled at length on cessation. Patient was also found have a candidate on admission likely secondary dehydration and drug use. This resolved with IV fluids. Patient was seen by nephrology and infectious disease doctors. Joint pains resolved. Patient takes HIV meds intermittently at home. Patient was counseled at length on taking medications regularly. Patient was advised to follow-up with his primary care doctor. HIV medications were held here secondary to acute kidney injury. Patient was cleared for discharge by both telephoto engineer and infectious disease doctor. Patient was discharged home. Patient eloped from the hospital prior to being provided with follow-up instructions. On day of discharge, patient stated he was feeling much better. Joint pains resolved. Patient denied any chest pain or palpitations. No nausea, vomiting, or abdominal pain. Patient was tolerating diet well. No headaches or dizziness. No fevers or chills. No dysuria or burning with urination. Physical exam: General: Awake and alert lying in bed in no acute distress HEENT: Normocephalic, atraumatic. Extraocular muscles intact. Pupils equal and reactive, no scleral icterus. Oropharynx pink and moist. No pharyngeal erythema or exudate appreciated. Neck supple. Cardiovascular: Regular rhythm. Normal S1 and S2. No murmurs, rubs, or gallops appreciated Pulmonary: Normal respiratory effort. No rhonchi, rales, or wheezing appreciated Gastrointestinal: Soft, Nontender. Nondistended. Positive bowel sounds all 4 quadrants. No guarding. Musculoskeletal: Moves all extremities. No calf tenderness. No edema appreciated. Central nervous system: AAO x3. No focal deficits appreciated. Dermatologic: Skin warm and dry. Please see chart for full details. Follow up instructions: Patient to follow-up with primary care doctor within 3-5 days. Patient follow-up with HIV clinic within 1 week. All instructions explained to the patient in detail. Patient both understands and agrees to all instructions. Patient left prior to getting written instructions. Time spent in discharging the patient including chart review, medication reconciliation, discussion with the patient, auditor medical claims, consultants, and nursing staff was approximately 35 minutes.
--- NOTE | 2018-12-18 19:11 | PN ---
DATE: 12/18/2018 SUBJECTIVE: The patient seen in bed, in no acute distress, and nontoxic. The patient seen earlier today in room 363, bed 2 and doing well. PHYSICAL EXAMINATION VITAL SIGNS: Temperature of 97, blood pressure 120/70, and respiratory rate of 18. HEENT: Unremarkable. NECK: Supple. LUNGS: Have decreased breath sounds. HEART: Normal S1 and S2. ABDOMEN: Soft. LABORATORY EXAMINATION: Reveals white count of 3.7 and hemoglobin on 9. Chemistries reveals a BUN of 23, creatinine of 0.9. Microbiology is noted. ASSESSMENT AND PLAN: He is a 38-year-old male who is seen with history of human immunodeficiency virus/acquired immunodeficiency syndrome, questionable of sickle cell disease, depression, bipolar, schizoaffective disorder, active intravenous drug abuser, history of endocarditis, admitted with human immunodeficiency virus and acquired immunodeficiency syndrome and the patient is taking his own human immunodeficiency virus medications. Upon discharge, he is to follow up his own human immunodeficiency virus provider in [facility]. Vargas Najera MD
== END 2018-12-18 12:47 | disposition left against medical advice (07) ==
LOC: ED 04:01 → ERH 05:23 → 3RNO 06:10
PROVIDERS: ADMIT Hospitalist; ATTEND Hospitalist
DX: E86.0 Dehydration (principal); F15.10 Other stimulant abuse, uncomplicated; F25.0 Schizoaffective disorder, bipolar type; Z21 Asymptomatic human immunodeficiency virus [HIV] infection status; D57.1 Sickle-cell disease without crisis; I10 Essential (primary) hypertension; I34.1 Nonrheumatic mitral (valve) prolapse; N17.9 Acute kidney failure, unspecified; Z79.899 Other long term (current) drug therapy; Z86.79 Personal history of other diseases of the circulatory system; Z86.73 Personal history of transient ischemic attack (TIA), and cerebral infarction without residual deficits; Z95.2 Presence of prosthetic heart valve; Z86.14 Personal history of Methicillin resistant Staphylococcus aureus infection; Z83.3 Family history of diabetes mellitus; Z83.2 Family history of diseases of the blood and blood-forming organs and certain disorders involving the immune mechanism; Z88.8 Allergy status to other drugs, medicaments and biological substances; M25.50 Pain in unspecified joint
CPT/HCPCS: 36415; 71045; 80053; 81001; 82550; 82553; 83735; 84100; 84484; 85025; 85044; 85610; 85730; 86747; 87040; 87798; 93005; 96374; 99285; G0378; G0480; J1644; J1885; J7030